=== PATIENT | female | born 1980 | race Caucasian/White ===

== ENCOUNTER 2017-05-27 07:09 | Emergency (ER) | payer OTHER ==
--- NOTE | 2017-05-27 07:36 | ED ---
Chest Pain HPI - General Chief Complaint: Chest Pain Stated Complaint: chest pain Time Seen by Provider: 05/27/17 07:15 Source: patient, RN notes reviewed Mode of arrival: wheelchair Limitations: no limitations - History of Present Illness Initial Comments: This is a 39-year-old female with a history of multiple medical issues including history of pulmonary embolism kidney stone with stent aortic root dilatation of 3.9 cm in the past also tricuspid regurgitation also with a Chiari malformation and is soon to have surgery who complains the onset about one half hours prior to admission of sharp left-sided chest pain. She states she gets as severe as 8/10 severity she states that it dulls all within gets bad again. It is in a similar location that she's had pain before. She denies any fevers chills sweats cough or phlegm production she is a former smoker. She is not recall anything he may have hurt her chest such as heavy lifting bending or stretching. She has have prior visits for similar pain. MD Complaint: chest pain - Related Data Home Medications Medication Instructions Recorded Confirmed ALPRAZolam [Xanax] 0.5 mg PO TID PRN 11/01/16 05/27/17 Acetaminophen with Codeine 1 tab PO Q6HR PRN 11/01/16 05/27/17 [Tylenol w/codeine #4] Ibuprofen [Motrin] 800 mg PO Q8HR PRN 11/01/16 05/27/17 Ondansetron Odt [Zofran ODT] 4 mg PO Q8HR PRN 11/01/16 05/27/17 Butalb/APAP/Caff 50-325-40Mg 1 tab PO Q4H PRN 05/27/17 05/27/17 [Fioricet 50-325-40] Folic Acid 1 mg PO DAILY 05/27/17 05/27/17 Magnesium 400 mg PO HS 05/27/17 05/27/17 Phentermine HCl [Adipex-P] 37.5 mg PO QAM 05/27/17 05/27/17 Topiramate [Topamax] 200 mg PO BID 05/27/17 05/27/17 Previous Rx's Medication Instructions Recorded Ibuprofen 800 mg PO Q6HR PRN #20 tablet 05/27/17 Potassium Chloride ER [K-Dur 20] 20 meq PO BID #14 tab 05/27/17 Allergies Allergy/AdvReac Type Severity Reaction Status Date / Time metoclopramide HCl Allergy Hallucinati Verified 05/27/17 08:22 [From Reglan] ons Review of Systems ROS Statement: Those systems with pertinent positive or pertinent negative responses have been documented in the HPI. ROS Other: All systems not noted in ROS Statement are negative. EKG Findings - EKG Results: EKG: interpreted by ERMD, sinus rhythm (Sinus bradycardia rate of 55 NM interval 136 QRS duration 86 QT since QTC of 436/417 st-t wave changes this is compared with an EKG dated 11/01/16) Past Medical History Past Medical History: Pulmonary Embolus (PE), Renal Disease Additional Past Medical History / Comment(s): kidney stones with stent, chairi malformation, tricuspid regurgitation, left ventricular hypertrophy History of Any Multi-Drug Resistant Organisms: None Reported Past Surgical History: Section, Cholecystectomy, Tubal Ligation Additional Past Surgical History / Comment(s): renal stent, surgery for chairi malformation may 25 Past Anesthesia/Blood Transfusion Reactions: Postoperative Nausea & Vomiting ( PONV) Past Psychological History: Anxiety Smoking Status: Former smoker Past Alcohol Use History: Rare Past Drug Use History: Marijuana - Past Family History Father Additional Family Medical History / Comment(s): born with hole in heart, valve replacements, heart attacks, pacemaker General Exam - General Exam Comments Initial Comments: This is a well-developed well-nourished awake alert oriented 3 female Limitations: no limitations General appearance: alert, in no apparent distress Head exam: Present: atraumatic, normocephalic, normal inspection Eye exam: Present: normal appearance, PERRL, EOMI. Absent: scleral icterus, conjunctival injection, periorbital swelling ENT exam: Present: normal exam, mucous membranes moist Neck exam: Present: normal inspection. Absent: tenderness, meningismus, lymphadenopathy Respiratory exam: Present: normal lung sounds bilaterally. Absent: respiratory distress, wheezes, rales, rhonchi, stridor Cardiovascular Exam: Present: regular rate, normal rhythm, normal heart sounds. Absent: systolic murmur, diastolic murmur, rubs, gallop, clicks GI/Abdominal exam: Present: soft, normal bowel sounds. Absent: distended, tenderness, guarding, rebound, rigid Extremities exam: Present: normal inspection, full ROM, normal capillary refill. Absent: tenderness, pedal edema, joint swelling, calf tenderness Back exam: Present: normal inspection Neurological exam: Present: alert, oriented X3, CN II-XII intact Psychiatric exam: Present: normal affect, normal mood Skin exam: Present: warm, dry, intact, normal color. Absent: rash Course Vital Signs 05/27/17 05/27/17 05/27/17 07:11 08:30 09:37 Temperature 97.4 F L Pulse Rate 61 60 58 L Respiratory 20 18 18 Rate Blood Pressure 129/69 109/64 91/53 O2 Sat by Pulse 99 100 98 Oximetry Chest Pain MDM - MDM Review the imaging shows no acute findings. Did discuss the findings with patient family patient does have evidence of hypokalemia mild dehydration and costochondritis. She will be treated appropriately she'll receive potassium before she lays. Disposition Clinical Impression: Chest wall syndrome, Costalchondritis, Hypokalemia, Dehydration Disposition: HOME SELF-CARE Condition: Good Prescriptions: Ibuprofen 800 mg PO Q6HR PRN #20 tablet PRN Reason: Pain Potassium Chloride ER [K-Dur 20] 20 meq PO BID #14 tab Referrals: Mikki Mansfield MD [Primary Care Provider] - 1-2 days
[2017-05-27 07:45] LABS: Basophils % (A) 0 %; CH 30.7; CHCM 34.1; Eosinophils # (A) 0.1 k/uL (0-0.7); Eosinophils % (A) 1 %; HCT 34.9 % (34.0-46.0); HDW 2.62; HGB 12.4 gm/dL (11.4-16.0); Luc # (Auto) 0.06; Luc % (Auto) 1; Lymphocytes # (A) 1.3 k/uL (1.0-4.8); Lymphocytes % (A) 17 %; MCH 32.1 pg (25.0-35.0); MCHC 35.4 g/dL (31.0-37.0); MCV 90.5 fL (80.0-100.0); Mean Platelet Volume 8.5; Monocytes # (A) 0.3 k/uL (0-1.0); Monocytes % (A) 3 %; Neutrophils % (A) 78 %; RBC 3.85 m/uL (3.80-5.40); WBC 7.7 k/uL (3.8-10.6); WBC (Perox) 7.61
[2017-05-27 07:54] LABS: ALT 34 U/L (9-52); AST 18 U/L (14-36); Alkaline Phosphatase 71 U/L (38-126); Amylase <30 U/L (30-110); Anion Gap 10 mmol/L; Blood Urea Nitrogen 7 mg/dL (7-17); Calcium 8.8 mg/dL (8.4-10.2); Carbon Dioxide 21 mmol/L (22-30); Chloride 115 mmol/L (98-107); Glucose 130 mg/dL (74-99); Magnesium 2.1 mg/dL (1.6-2.3); Non-African American GFR(MDRD) >60 (>60 ml/min/1.73 sqM); Potassium 3.2 mmol/L (3.5-5.1); Sodium 146 mmol/L (137-145); Total Bilirubin 0.6 mg/dL (0.2-1.3); Total Protein 6.4 g/dL (6.3-8.2)
[2017-05-27 08:00] LABS: INR 1.1 (<1.1); Partial Thromboplastin Time 23.4 sec (22.0-30.0); Prothrombin Time 10.8 sec (9.0-12.0)
[2017-05-27 08:08] LABS: Creatine Kinase 78 U/L (30-135)
--- NOTE | 2017-05-27 08:10 | XR ---
EXAMINATION TYPE: XR chest 2V DATE OF EXAM: 05/27/2017 COMPARISON: Chest x-ray November 02, 2016. HISTORY: Chest pain. TECHNIQUE: Frontal and lateral views of the chest are obtained. FINDINGS: There is no focal air space opacity, pleural effusion, or pneumothorax seen. The cardiac silhouette size is within normal limits. The osseous structures are intact. IMPRESSION: No acute cardiopulmonary process. No significant change from prior.
[2017-05-27 08:21] LABS: Troponin I <0.012 ng/mL (0.000-0.034)
[2017-05-27] MEDS ORDERED: ONDANSETRON 4 MG/2 ML VIAL IVP STA (08:21)
[2017-05-27] MEDS ORDERED: HYDROmorphone 1 MG/ML 1 ML SYRINGE IVP STA (08:21)
[2017-05-27 08:23] LABS: Creatine Kinase MB 3.4 ng/mL (0.0-2.4)
[2017-05-27 08:31] VITALS: RESP 18
[2017-05-27] MEDS ORDERED: POTASSIUM CHLORIDE ER 20 MEQ TAB.ER PO STA (09:40)
[2017-05-27 10:08] VITALS: BP 110/58; PULSE 90; TEMP 97.7
== END 2017-05-27 10:08 | disposition home or self-care (01) ==
LOC: EC 07:09
DX: M94.0 Chondrocostal junction syndrome [Tietze] (principal); E87.6 Hypokalemia; E86.0 Dehydration; Z87.891 Personal history of nicotine dependence; Z79.899 Other long term (current) drug therapy; Z88.8 Allergy status to other drugs, medicaments and biological substances
CPT/HCPCS: 36415; 93005; 85379; 83880; 80053; 82150; 82550; 82553; 83690; 83735; 84484; 85025; 85610; 85730; 71020; 99285; 96374; 96375; J2405; J1170

== ENCOUNTER 2017-07-18 00:52 | Emergency (ER) | payer OTHER ==
[2017-07-18] MEDS ORDERED: SODIUM CHLORIDE 0.9% 1,000 ML IV STA (01:07)
[2017-07-18] MEDS ORDERED: DICYCLOMINE 10 MG/ML 2 ML AMP IM STA (01:25)
--- NOTE | 2017-07-18 01:25 | ED ---
General Adult HPI - General Chief complaint: Abdominal Pain Stated complaint: RLQ Pain Time Seen by Provider: 07/18/17 01:06 Source: patient, family, RN notes reviewed Mode of arrival: ambulatory Limitations: no limitations - History of Present Illness Initial comments: 37-year-old female presents to the emergency room chief complaint of right lower quadrant abdominal pain. Patient states this pain started about a day and a half goes progressively gotten worse now she has nausea. Patient states it just a constant pain that won't go away. Patient seen changes or bladder habits. Patient states she's had nausea without vomiting patient denies any fever or chills. Patient states she went to work and she just could not tolerate the pain. So she thought that she should be evaluated. Patient states that she cannot recall ever having pain like this in the past.Patient denies any recent fever, chills, shortness of breath, chest pain, back pain, vomiting, numbness or tingling, dysuria or hematuria, constipation or diarrhea, headaches or visual changes, or any other current symptoms. - Related Data Home Medications Medication Instructions Recorded Confirmed ALPRAZolam [Xanax] 0.5 mg PO TID PRN 11/01/16 07/18/17 Acetaminophen with Codeine 1 tab PO Q6HR PRN 11/01/16 07/18/17 [Tylenol w/codeine #4] Ibuprofen [Motrin] 800 mg PO Q8HR PRN 11/01/16 07/18/17 Ondansetron Odt [Zofran ODT] 4 mg PO Q8HR PRN 11/01/16 07/18/17 Butalb/APAP/Caff 50-325-40Mg 1 tab PO Q4H PRN 05/27/17 07/18/17 [Fioricet 50-325-40] Folic Acid 1 mg PO DAILY 05/27/17 07/18/17 Magnesium 400 mg PO HS 05/27/17 07/18/17 Phentermine HCl [Adipex-P] 37.5 mg PO QAM 05/27/17 07/18/17 Previous Rx's Medication Instructions Recorded Ibuprofen 800 mg PO Q6HR PRN #20 tablet 05/27/17 Potassium Chloride ER [K-Dur 20] 20 meq PO BID #14 tab 05/27/17 Ibuprofen [Motrin] 600 mg PO Q6HR PRN #20 tab 07/18/17 Allergies Allergy/AdvReac Type Severity Reaction Status Date / Time metoclopramide HCl Allergy Hallucinati Verified 07/18/17 01:03 [From [facility]] ons Review of Systems ROS Statement: Those systems with pertinent positive or pertinent negative responses have been documented in the HPI. ROS Other: All systems not noted in ROS Statement are negative. Past Medical History Past Medical History: Pulmonary Embolus (PE), Renal Disease Additional Past Medical History / Comment(s): kidney stones with stent, chairi malformation, tricuspid regurgitation, left ventricular hypertrophy History of Any Multi-Drug Resistant Organisms: None Reported Past Surgical History: Section, Cholecystectomy, Tubal Ligation Additional Past Surgical History / Comment(s): renal stent, surgery for chairi malformation may 25 Past Anesthesia/Blood Transfusion Reactions: Postoperative Nausea & Vomiting ( PONV) Past Psychological History: Anxiety Smoking Status: Current every day smoker Past Alcohol Use History: Rare Past Drug Use History: Marijuana - Past Family History Father Additional Family Medical History / Comment(s): born with hole in heart, valve replacements, heart attacks, pacemaker General Exam - General Exam Comments Initial Comments: General: The patient is awake and alert, in no distress, and does not appear acutely ill. Eye: Pupils are equal, round and reactive to light, extra-ocular movements are intact; there is normal conjunctiva bilaterally. No signs of icterus. Ears, nose, mouth and throat: There are moist mucous membranes and no oral lesions. Neck: The neck is supple, there is no tenderness. Cardiovascular: There is a regular rate and rhythm. No murmur, rub or gallop is appreciated. Respiratory: Lungs are clear to auscultation, respirations are non-labored, breath sounds are equal. No wheezes, stridor, rales, or rhonchi. Gastrointestinal: Soft, non-distended, non-tender abdomen without masses or organomegaly noted. There is no rebound or guarding present. No CVA tenderness. Bowel sounds are unremarkable. Back: There is no tenderness to palpation in the midline. There is no obvious deformity. No rashes noted. Musculoskeletal: Normal ROM, no tenderness, There is no pedal edema. There is no calf tenderness or swelling. Sensation intact. Pulses equal bilaterally 2+. Neurological: CN II-XII intact, There are no obvious motor or sensory deficits. Coordination appears grossly intact. Speech is normal. Skin: Skin is warm and dry and no rashes or lesions are noted. Psychiatric: Cooperative, appropriate mood & affect, normal judgment. Limitations: no limitations Course Vital Signs 07/18/17 01:00 Temperature 97.5 F L Pulse Rate 60 Respiratory 18 Rate Blood Pressure 119/77 O2 Sat by Pulse 99 Oximetry Medical Decision Making - Medical Decision Making 37 yo female presents emergency Department chief complaint of right lower quadrant abdominal pain. At this time patient does appear to have a right ovarian cyst. This time we discussion stop with [facility] [employer] in her [facility] is around her. We did discussion will need to have repeat ultrasound. We discussed return parameters discussed was to watch for. We discussed all the patient's questions. She stated that she understood and she is given plan. She will be discharged home. - Lab Data Result diagrams: 07/18/17 01:20 07/18/17 01:20 Lab Results 07/18/17 07/18/17 07/18/17 Range/Units 01:20 01:20 01:20 WBC 7.2 (3.8-10.6) k/uL RBC 4.01 (3.80-5.40) m/uL Hgb 12.3 (11.4-16.0) gm/dL Hct 37.0 (34.0-46.0) % MCV 92.3 (80.0-100.0) fL MCH 30.6 (25.0-35.0) pg MCHC 33.2 (31.0-37.0) g/dL RDW 13.7 (11.5-15.5) % Plt Count 196 (150-450) k/uL Neutrophils % 60 % Lymphocytes % 30 % Monocytes % 4 % Eosinophils % 3 % Basophils % 1 % Neutrophils # 4.3 (1.3-7.7) k/uL Lymphocytes # 2.2 (1.0-4.8) k/uL Monocytes # 0.3 (0-1.0) k/uL Eosinophils # 0.2 (0-0.7) k/uL Basophils # 0.1 (0-0.2) k/uL Sodium 142 (137-145) mmol/L Potassium 4.1 (3.5-5.1) mmol/L Chloride 116 H (98-107) mmol/L Carbon Dioxide 17 L (22-30) mmol/L Anion Gap 9 mmol/L BUN 10 (7-17) mg/dL Creatinine 0.70 (0.52-1.04) mg/dL Est GFR (MDRD) Af Amer >60 (>60 ml/min/1.73 sqM) Est GFR (MDRD) Non-Af >60 (>60 ml/min/1.73 sqM) Glucose 95 (74-99) mg/dL Calcium 8.6 (8.4-10.2) mg/dL Total Bilirubin 0.1 L (0.2-1.3) mg/dL AST 20 (14-36) U/L ALT 37 (9-52) U/L Alkaline Phosphatase 65 (38-126) U/L Total Protein 5.8 L (6.3-8.2) g/dL Albumin 3.4 L (3.5-5.0) g/dL Amylase <30 L (30-110) U/L Lipase 61 (23-300) U/L Urine Color Urine Appearance (Clear) Urine pH (5.0-8.0) Ur Specific Oley (1.001-1.035) Urine Protein (Negative) Urine Glucose (UA) (Negative) Urine Ketones (Negative) Urine Blood (Negative) Urine Nitrite (Negative) Urine Bilirubin (Negative) Urine Urobilinogen (<2.0) mg/dL Ur Leukocyte Esterase (Negative) Urine RBC (0-5) /hpf Urine WBC (0-5) /hpf Ur Squamous Epith Cells (0-4) /hpf Urine Mucus (None) /hpf Urine HCG, Qual Not Detected (Not Detectd) 07/18/17 Range/Units 01:20 WBC (3.8-10.6) k/uL RBC (3.80-5.40) m/uL Hgb (11.4-16.0) gm/dL Hct (34.0-46.0) % MCV (80.0-100.0) fL MCH (25.0-35.0) pg MCHC (31.0-37.0) g/dL RDW (11.5-15.5) % Plt Count (150-450) k/uL Neutrophils % % Lymphocytes % % Monocytes % % Eosinophils % % Basophils % % Neutrophils # (1.3-7.7) k/uL Lymphocytes # (1.0-4.8) k/uL Monocytes # (0-1.0) k/uL Eosinophils # (0-0.7) k/uL Basophils # (0-0.2) k/uL Sodium (137-145) mmol/L Potassium (3.5-5.1) mmol/L Chloride (98-107) mmol/L Carbon Dioxide (22-30) mmol/L Anion Gap mmol/L BUN (7-17) mg/dL Creatinine (0.52-1.04) mg/dL Est GFR (MDRD) Af Amer (>60 ml/min/1.73 sqM) Est GFR (MDRD) Non-Af (>60 ml/min/1.73 sqM) Glucose (74-99) mg/dL Calcium (8.4-10.2) mg/dL Total Bilirubin (0.2-1.3) mg/dL AST (14-36) U/L ALT (9-52) U/L Alkaline Phosphatase (38-126) U/L Total Protein (6.3-8.2) g/dL Albumin (3.5-5.0) g/dL Amylase (30-110) U/L Lipase (23-300) U/L Urine Color Yellow Urine Appearance Cloudy H (Clear) Urine pH 6.0 (5.0-8.0) Ur Specific Oley 1.015 (1.001-1.035) Urine Protein Negative (Negative) Urine Glucose (UA) Negative (Negative) Urine Ketones Negative (Negative) Urine Blood Negative (Negative) Urine Nitrite Negative (Negative) Urine Bilirubin Negative (Negative) Urine Urobilinogen <2.0 (<2.0) mg/dL Ur Leukocyte Esterase Large H (Negative) Urine RBC 7 H (0-5) /hpf Urine WBC 32 H (0-5) /hpf Ur Squamous Epith Cells 22 H (0-4) /hpf Urine Mucus Rare H (None) /hpf Urine HCG, Qual (Not Detectd) - Radiology Data Radiology results: report reviewed, image reviewed Disposition Clinical Impression: Right ovarian cyst Disposition: HOME SELF-CARE Condition: Stable Instructions: Ovarian Cyst (ED) Additional Instructions: Please use medication as discussed. Please follow up with family doctor if symptoms have not improved over the next two days. Please return to the emergency room if your symptoms increase or worsen or for any other concerns. Prescriptions: Ibuprofen [Motrin] 600 mg PO Q6HR PRN #20 tab PRN Reason: Pain Referrals: Mikki Mansfield MD [Primary Care Provider] - 1-2 days Karissa Hatfield DO [Doctor of Osteopathic Medicine] - 1-2 days Time of Disposition: 02:46
[2017-07-18 01:37] LABS: Basophils # (A) 0.1 k/uL (0-0.2); Basophils % (A) 1 %; CH 31.3; CHCM 34.1; Eosinophils # (A) 0.2 k/uL (0-0.7); Eosinophils % (A) 3 %; HDW 2.52; HGB 12.3 gm/dL (11.4-16.0); Luc % (Auto) 1; Lymphocytes # (A) 2.2 k/uL (1.0-4.8); Lymphocytes % (A) 30 %; MCH 30.6 pg (25.0-35.0); MCHC 33.2 g/dL (31.0-37.0); MCV 92.3 fL (80.0-100.0); Mean Platelet Volume 8.9; Monocytes # (A) 0.3 k/uL (0-1.0); Monocytes % (A) 4 %; Neutrophils # (A) 4.3 k/uL (1.3-7.7); Neutrophils % (A) 60 %; RBC 4.01 m/uL (3.80-5.40); RDW 13.7 % (11.5-15.5); WBC 7.2 k/uL (3.8-10.6); WBC (Perox) 6.83
[2017-07-18 01:41] LABS: Appearance,Urine Cloudy (Clear); Bilirubin,Urine Negative (Negative); Glucose,Urine (UA) Negative (Negative); Ketones,Urine Negative (Negative); Leukocyte Esterase,Urine Large (Negative); Mucus,Urine Rare /hpf; Nitrite,Urine Negative (Negative); Particle Count 14540; Protein,Urine Negative (Negative); RBC,Urine 7 /hpf (0-5); Specific Gravity,Urine 1.015 (1.001-1.035); Squamous Epithelial Cell,Urine 22 /hpf (0-4); UA Billing (MACRO vs. MICRO) MICRO; Urobilinogen,Urine <2.0 mg/dL (<2.0); WBC,Urine 32 /hpf (0-5)
[2017-07-18 01:48] LABS: ALT 37 U/L (9-52); AST 20 U/L (14-36); Alkaline Phosphatase 65 U/L (38-126); Amylase <30 U/L (30-110); Anion Gap 9 mmol/L; Blood Urea Nitrogen 10 mg/dL (7-17); Calcium 8.6 mg/dL (8.4-10.2); Carbon Dioxide 17 mmol/L (22-30); Chloride 116 mmol/L (98-107); Glucose 95 mg/dL (74-99); Non-African American GFR(MDRD) >60 (>60 ml/min/1.73 sqM); Potassium 4.1 mmol/L (3.5-5.1); Sodium 142 mmol/L (137-145); Total Bilirubin 0.1 mg/dL (0.2-1.3); Total Protein 5.8 g/dL (6.3-8.2)
--- NOTE | 2017-07-18 02:36 | CT ---
EXAM: CT Abdomen and Pelvis Without Intravenous Contrast CLINICAL HISTORY: Right lower quadrant pain TECHNIQUE: Axial computed tomography images of the abdomen and pelvis without intravenous contrast. DLP is 587.50 mGy-cm. This CT exam was performed using one or more of the following dose reduction techniques: automated exposure control, adjustment of the mA and/or kV according to patient size, and/or use of iterative reconstruction technique. COMPARISON: 08/27/2015. FINDINGS: Lower thorax: No acute findings. ABDOMEN: Liver: Unremarkable. Gallbladder and bile ducts: Patient status post cholecystectomy. No ductal dilation. Pancreas: Unremarkable. No ductal dilation. Spleen: Unremarkable. No splenomegaly. Adrenals: Unremarkable. No mass. Kidneys and ureters: Unremarkable. No obstructing stones. No hydronephrosis. Stomach and bowel: Moderate amount of stool seen throughout the colon, which may represent constipation. No obstruction. No mucosal thickening. Appendix: Evaluation of the bowel is limited without the use of oral contrast material. Within this limitation, a normal appendix is seen. PELVIS: Bladder: Unremarkable. No stones. Reproductive: Large right adnexal probable cystic mass, measuring 5.6 x 5.7 x 5.2 cm, new since prior study. ABDOMEN and PELVIS: Intraperitoneal space: A small amount of pelvic free fluid is seen, likely physiologic. No free air. Bones/joints: Mild bilateral symmetric sacroiliitis is suggested. No acute fracture. No dislocation. Soft tissues: Unremarkable. Vasculature: Unremarkable. No abdominal aortic aneurysm. Lymph nodes: Evaluation of the lymph nodes is limited without the use of IV contrast material. Within this limitation, no gross evidence of lymphadenopathy. IMPRESSION: Large right adnexal probable cystic mass, measuring 5.7 cm, new since prior study. Pelvic ultrasound may be performed for further evaluation. Moderate amount of stool throughout the colon, which may represent constipation. No evidence of hydronephrosis. Normal appendix.
[2017-07-18] MEDS ORDERED: KETOROLAC 30 MG/ML 1 ML VIAL IVP STA (02:45)
[2017-07-18 02:52] VITALS: BP 118/79; PULSE 84; RESP 16; TEMP 98.1
== END 2017-07-18 02:51 | disposition home or self-care (01) ==
LOC: EC 00:52
DX: N83.201 Unspecified ovarian cyst, right side (principal); F17.200 Nicotine dependence, unspecified, uncomplicated; Z79.899 Other long term (current) drug therapy; Z88.8 Allergy status to other drugs, medicaments and biological substances; Z90.49 Acquired absence of other specified parts of digestive tract; Z98.51 Tubal ligation status
CPT/HCPCS: 36415; 80053; 82150; 83690; 85025; 81001; 81025; 87040; 87086; 87077; 87186; 74176; 99284; 96374; 96361; 96372; J0500; J1885

== ENCOUNTER → 2017-08-06 | Outpatient (CLI) | payer OTHER ==
[2017-08-06 12:00] LABS: Basophils # (A) 0.1 k/uL (0-0.2); Basophils % (A) 1 %; CH 30.7; CHCM 32.9; Eosinophils # (A) 0.8 k/uL (0-0.7); Eosinophils % (A) 9 %; HCT 37.5 % (34.0-46.0); HDW 2.57; HGB 12.2 gm/dL (11.4-16.0); Luc # (Auto) 0.09; Luc % (Auto) 1; Lymphocytes # (A) 1.9 k/uL (1.0-4.8); Lymphocytes % (A) 20 %; MCH 30.7 pg (25.0-35.0); MCHC 32.6 g/dL (31.0-37.0); MCV 94.1 fL (80.0-100.0); Mean Platelet Volume 8.5; Monocytes # (A) 0.4 k/uL (0-1.0); Monocytes % (A) 4 %; Neutrophils # (A) 6.1 k/uL (1.3-7.7); Neutrophils % (A) 65 %; RBC 3.99 m/uL (3.80-5.40); RDW 13.9 % (11.5-15.5); WBC 9.3 k/uL (3.8-10.6); WBC (Perox) 9.97
[2017-08-06 12:06] LABS: Appearance,Urine Clear (Clear); Bacteria,Urine Rare /hpf; Bilirubin,Urine Negative (Negative); Glucose,Urine (UA) Negative (Negative); Ketones,Urine Negative (Negative); Leukocyte Esterase,Urine Trace (Negative); Mucus,Urine Occasional /hpf; Nitrite,Urine Negative (Negative); PH, Urine 5.5 (5.0-8.0); Particle Count 5684; Protein,Urine Trace (Negative); Specific Gravity,Urine 1.018 (1.001-1.035); Squamous Epithelial Cell,Urine 3 /hpf (0-4); UA Billing (MACRO vs. MICRO) MICRO; Urobilinogen,Urine <2.0 mg/dL (<2.0); WBC,Urine 1 /hpf (0-5)
[2017-08-06 12:08] LABS: Partial Thromboplastin Time 24.1 sec (22.0-30.0); Prothrombin Time 10.5 sec (9.0-12.0)
[2017-08-06 12:15] LABS: AST 37 U/L (14-36); Alkaline Phosphatase 87 U/L (38-126); Anion Gap 11 mmol/L; Blood Urea Nitrogen 11 mg/dL (7-17); Calcium 9.2 mg/dL (8.4-10.2); Carbon Dioxide 22 mmol/L (22-30); Chloride 110 mmol/L (98-107); Glucose 81 mg/dL (74-99); Non-African American GFR(MDRD) >60 (>60 ml/min/1.73 sqM); Potassium 4.3 mmol/L (3.5-5.1); Sodium 143 mmol/L (137-145); Total Bilirubin 0.2 mg/dL (0.2-1.3); Total Protein 6.5 g/dL (6.3-8.2)
[2017-08-06 12:20] LABS: ALT 65 U/L (9-52)
== END | disposition home or self-care (01) ==
LOC: LABWHC1 11:28
PROVIDERS: ATTEND Neurological Surgery
DX: G93.5 Compression of brain (principal)
CPT/HCPCS: 36415; 80053; 81001; 85025; 85610; 85730

== ENCOUNTER 2017-08-12 03:15 | Emergency (ER) | payer OTHER ==
[2017-08-12 03:26] VITALS: BP 118/76; PULSE 74; RESP 18; TEMP 98.1
[2017-08-12] MEDS ORDERED: diphenhydrAMINE 50 MG/ML 1 ML VIAL IVP STA (03:47)
[2017-08-12] MEDS ORDERED: HYDROmorphone 1 MG/ML 1 ML SYRINGE IVP STA (03:47)
[2017-08-12] MEDS ORDERED: SODIUM CHLORIDE 0.9% 1,000 ML IV STA (03:47)
[2017-08-12] MEDS ORDERED: ONDANSETRON 4 MG/2 ML VIAL IVP STA (03:47)
--- NOTE | 2017-08-12 03:58 | ED ---
General Adult HPI - General Chief complaint: Headache Stated complaint: headache Time Seen by Provider: 08/12/17 03:35 Source: patient, family, RN notes reviewed Mode of arrival: ambulatory Limitations: no limitations - History of Present Illness Initial comments: Patient 37-year-old female presenting to the emergency room today with a headache. She does admit to a history of chart formation. She states that she has a "blockage" and is supposed to have surgery next week for this. She states that the headache has been worse today. She states she has been having headaches off and on over the last week. States feeling in the back of the head also the front. States somewhat similar to headaches that she's had in the past but symptoms are worse. She denies any frequency associated symptoms. Patient denies any recent fever, chills, shortness of breath, chest pain, back pain, abdominal pain, nausea or vomiting, numbness or tingling, dysuria or hematuria, constipation or diarrhea, visual changes, or any other complaints. - Related Data Home Medications Medication Instructions Recorded Confirmed ALPRAZolam [Xanax] 0.5 mg PO TID PRN 11/01/16 08/12/17 Acetaminophen with Codeine 1 tab PO Q6HR PRN 11/01/16 08/12/17 [Tylenol w/codeine #4] Ibuprofen [Motrin] 800 mg PO Q8HR PRN 11/01/16 08/12/17 Ondansetron Odt [Zofran ODT] 4 mg PO Q8HR PRN 11/01/16 08/12/17 Butalb/APAP/Caff 50-325-40Mg 1 tab PO Q4H PRN 05/27/17 08/12/17 [Fioricet 50-325-40] Folic Acid 1 mg PO DAILY 05/27/17 08/12/17 Magnesium 400 mg PO HS 05/27/17 08/12/17 Phentermine HCl [Adipex-P] 37.5 mg PO QAM 05/27/17 08/12/17 Previous Rx's Medication Instructions Recorded Ibuprofen 800 mg PO Q6HR PRN #20 tablet 05/27/17 Potassium Chloride ER [K-Dur 20] 20 meq PO BID #14 tab 05/27/17 Ibuprofen [Motrin] 600 mg PO Q6HR PRN #20 tab 07/18/17 Allergies Allergy/AdvReac Type Severity Reaction Status Date / Time metoclopramide HCl Allergy Hallucinati Verified 08/12/17 03:25 [From Reglan] ons Review of Systems ROS Statement: Those systems with pertinent positive or pertinent negative responses have been documented in the HPI. ROS Other: All systems not noted in ROS Statement are negative. Past Medical History Past Medical History: Pulmonary Embolus (PE), Renal Disease Additional Past Medical History / Comment(s): kidney stones with stent, chairi malformation, tricuspid regurgitation, left ventricular hypertrophy History of Any Multi-Drug Resistant Organisms: None Reported Past Surgical History: Section, Cholecystectomy, Tubal Ligation Additional Past Surgical History / Comment(s): renal stent, surgery for chairi malformation may 25 Past Anesthesia/Blood Transfusion Reactions: Postoperative Nausea & Vomiting ( PONV) Past Psychological History: Anxiety Smoking Status: Current every day smoker Past Alcohol Use History: Rare Past Drug Use History: Marijuana - Past Family History Father Additional Family Medical History / Comment(s): born with hole in heart, valve replacements, heart attacks, pacemaker General Exam - General Exam Comments Initial Comments: General: The patient is awake and alert, in no distress, and does not appear acutely ill. Eye: Pupils are equal, round and reactive to light, extra-ocular movements are intact. No nystagmus. There is normal conjunctiva bilaterally. No signs of icterus. Ears, nose, mouth and throat: There are moist mucous membranes and no oral lesions. Neck: The neck is supple, there is no tenderness or JVD. Cardiovascular: There is a regular rate and rhythm. No murmur, rub or gallop is appreciated. Respiratory: Lungs are clear to auscultation, respirations are non-labored, breath sounds are equal. No wheezes, stridor, rales, or rhonchi. Gastrointestinal: Soft, non-distended, non-tender abdomen without masses or organomegaly noted. There is no rebound or guarding present. No CVA tenderness. Bowel sounds are unremarkable. Musculoskeletal: Normal ROM, no tenderness. Strength 5/5. Sensation intact. Pulses equal bilaterally 2+. Neurological: A&O x 3. CN II-XII intact, There are no obvious motor or sensory deficits. Coordination appears grossly intact. Speech is normal. Skin: Skin is warm and dry and no rashes or lesions are noted. Psychiatric: Cooperative, appropriate mood & affect, normal judgment. Limitations: no limitations Course Vital Signs 08/12/17 03:22 Temperature 98.1 F Pulse Rate 74 Respiratory 18 Rate Blood Pressure 118/76 O2 Sat by Pulse 100 Oximetry Medical Decision Making - Medical Decision Making Case discussed in detail with attending physician Dr. Gan. Patient's past reports reviewed does have multiple CTs. Was discussed with patient about the option of a CAT scan today. She has declined. She states CAT scans typically do not show anything. Patient states she would like something for the headache. We will give patient pain medicine here in the emergency room and she is advised to follow-up with her neurosurgeon tomorrow morning. Disposition Clinical Impression: Headache Disposition: HOME SELF-CARE Condition: Stable Instructions: Acute Headache (ED) Additional Instructions: Please follow-up the neurosurgeon in the morning as discussed. Please return to emergency room symptoms increase or worsen or for any other concerns. Referrals: Mikki Mansfield MD [Primary Care Provider] - 1-2 days Time of Disposition: 03:56
== END 2017-08-12 05:05 | disposition home or self-care (01) ==
LOC: EC 03:15
DX: R51 Headache (principal); F17.200 Nicotine dependence, unspecified, uncomplicated; Z88.8 Allergy status to other drugs, medicaments and biological substances; Z79.899 Other long term (current) drug therapy
CPT/HCPCS: 99283; 96374; 96375 ×2; 96361; J1200; J2405; J1170

== ENCOUNTER 2017-09-04 09:07 | Emergency (ER) | payer OTHER ==
[2017-09-04 09:14] VITALS: TEMP 97.8
[2017-09-04] MEDS ORDERED: SODIUM CHLORIDE 0.9% 1,000 ML IV STA (09:32)
[2017-09-04] MEDS ORDERED: ONDANSETRON 4 MG/2 ML VIAL IVP STA (10:06)
[2017-09-04] MEDS ORDERED: MORPHINE SULFATE 2 MG/ML SYRINGE IVP STA (10:06)
--- NOTE | 2017-09-04 10:08 | ED ---
General Adult HPI - General Chief complaint: Back Pain/Injury Stated complaint: side pain Time Seen by Provider: 09/04/17 09:17 Source: patient, RN notes reviewed Mode of arrival: wheelchair Limitations: no limitations - History of Present Illness Initial comments: This a 37-year-old female presents emergency Department with chief complaint bilateral flank pain. Patient states started last night progressively worsened until today. Patient does admit some nausea and vomiting. 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 Patient states this is the second attempt. Patient states she has no increase head or neck pain. Denies fever, chills. She states she has no weakness of any extremity. Denies chest pain or shortness of breath. She states his pain is different than he also is going at this time. She denies any dysuria or hematuria. Denies any diarrhea constipation. - Related Data Home Medications Medication Instructions Recorded Confirmed ALPRAZolam [Xanax] 0.5 mg PO TID PRN 11/01/16 08/12/17 Acetaminophen with Codeine 1 tab PO Q6HR PRN 11/01/16 08/12/17 [Tylenol w/codeine #4] Ibuprofen [Motrin] 800 mg PO Q8HR PRN 11/01/16 08/12/17 Ondansetron Odt [Zofran ODT] 4 mg PO Q8HR PRN 11/01/16 08/12/17 Butalb/APAP/Caff 50-325-40Mg 1 tab PO Q4H PRN 05/27/17 08/12/17 [Fioricet 50-325-40] Folic Acid 1 mg PO DAILY 05/27/17 08/12/17 Magnesium 400 mg PO HS 05/27/17 08/12/17 Phentermine HCl [Adipex-P] 37.5 mg PO QAM 05/27/17 08/12/17 Previous Rx's Medication Instructions Recorded Ibuprofen 800 mg PO Q6HR PRN #20 tablet 05/27/17 Potassium Chloride ER [K-Dur 20] 20 meq PO BID #14 tab 05/27/17 Ibuprofen [Motrin] 600 mg PO Q6HR PRN #20 tab 07/18/17 Ciprofloxacin HCl [Cipro] 500 mg PO Q12HR #14 tablet 09/04/17 Allergies Allergy/AdvReac Type Severity Reaction Status Date / Time metoclopramide HCl Allergy Hallucinati Verified 09/04/17 09:14 [From [facility]] ons Review of Systems ROS Statement: Those systems with pertinent positive or pertinent negative responses have been documented in the HPI. ROS Other: All systems not noted in ROS Statement are negative. Past Medical History Past Medical History: Pulmonary Embolus (PE), Renal Disease Additional Past Medical History / Comment(s): kidney stones with stent, chairi malformation, tricuspid regurgitation, left ventricular hypertrophy History of Any Multi-Drug Resistant Organisms: None Reported Past Surgical History: Section, Cholecystectomy, Tubal Ligation Additional Past Surgical History / Comment(s): renal stent, surgery for chairi malformation may 24, brain decompression 09/01/17 Past Anesthesia/Blood Transfusion Reactions: Postoperative Nausea & Vomiting ( PONV) Past Psychological History: Anxiety Smoking Status: Former smoker Past Alcohol Use History: Rare Past Drug Use History: Marijuana - Past Family History Father Additional Family Medical History / Comment(s): born with hole in heart, valve replacements, heart attacks, pacemaker General Exam Limitations: no limitations General appearance: alert, in no apparent distress Head exam: Present: atraumatic, normocephalic. Absent: normal inspection ( There is incision with Steri-Strips over noted on occipital region extending to the neck) Eye exam: Present: normal appearance, PERRL, EOMI. Absent: scleral icterus, conjunctival injection, periorbital swelling ENT exam: Present: normal exam, normal oropharynx, mucous membranes moist, TM's normal bilaterally, normal external ear exam Neck exam: Present: full ROM. Absent: normal inspection (Incision as prior noted), tenderness, meningismus, lymphadenopathy Respiratory exam: Present: normal lung sounds bilaterally. Absent: respiratory distress, wheezes, rales, rhonchi, stridor Cardiovascular Exam: Present: regular rate, normal rhythm, normal heart sounds. Absent: systolic murmur, diastolic murmur, rubs, gallop, clicks GI/Abdominal exam: Present: soft, normal bowel sounds. Absent: distended, tenderness, guarding, rebound, rigid Back exam: Present: full ROM, CVA tenderness (R). Absent: tenderness, CVA tenderness (L), paraspinal tenderness, vertebral tenderness Neurological exam: Present: alert, oriented X3, CN II-XII intact, reflexes normal. Absent: motor sensory deficit Skin exam: Present: warm, dry, intact, normal color. Absent: rash Course Vital Signs 09/04/17 09/04/17 09:12 11:52 Temperature 97.8 F Pulse Rate 83 88 Respiratory 20 20 Rate Blood Pressure 123/80 124/67 O2 Sat by Pulse 100 98 Oximetry Medical Decision Making - Medical Decision Making 37-year-old female presented for flank pain ground the right compared to left. Patient does have nitrate positive urine recent Val[place] catheter exposure and minimal white cells. Patient we treated for possible urinary tract infection she is advised follow-up with her doctor on Wednesday and return if any symptoms worsen. Case discussed with Dr. goldberg - Lab Data Result diagrams: 09/04/17 10:49 09/04/17 10:49 Lab Results 09/04/17 09/04/17 09/04/17 Range/Units 09:32 09:32 10:49 WBC 11.8 H (3.8-10.6) k/uL RBC 3.60 L (3.80-5.40) m/uL Hgb 10.6 L (11.4-16.0) gm/dL Hct 33.4 L (34.0-46.0) % MCV 92.8 (80.0-100.0) fL MCH 29.4 (25.0-35.0) pg MCHC 31.7 (31.0-37.0) g/dL RDW 12.9 (11.5-15.5) % Plt Count 248 (150-450) k/uL Neutrophils % 88 % Lymphocytes % 9 % Monocytes % 3 % Eosinophils % 0 % Basophils % 0 % Neutrophils # 10.4 H (1.3-7.7) k/uL Lymphocytes # 1.0 (1.0-4.8) k/uL Monocytes # 0.4 (0-1.0) k/uL Eosinophils # 0.0 (0-0.7) k/uL Basophils # 0.0 (0-0.2) k/uL Sodium (137-145) mmol/L Potassium (3.5-5.1) mmol/L Chloride (98-107) mmol/L Carbon Dioxide (22-30) mmol/L Anion Gap mmol/L BUN (7-17) mg/dL Creatinine (0.52-1.04) mg/dL Est GFR (MDRD) Af Amer (>60 ml/min/1.73 sqM) Est GFR (MDRD) Non-Af (>60 ml/min/1.73 sqM) Glucose (74-99) mg/dL Plasma Lactic Acid [place] (0.7-2.0) mmol/L Calcium (8.4-10.2) mg/dL Total Bilirubin (0.2-1.3) mg/dL AST (14-36) U/L ALT (9-52) U/L Alkaline Phosphatase (38-126) U/L Total Protein (6.3-8.2) g/dL Albumin (3.5-5.0) g/dL Amylase (30-110) U/L Lipase (23-300) U/L Urine Color Light Yellow Urine Appearance Cloudy H (Clear) Urine pH 6.5 (5.0-8.0) Ur Specific [place] 1.007 (1.001-1.035) Urine Protein Negative (Negative) Urine Glucose (UA) Negative (Negative) Urine Ketones Negative (Negative) Urine Blood Negative (Negative) Urine Nitrite Positive H (Negative) Urine Bilirubin Negative (Negative) Urine Urobilinogen <2.0 (<2.0) mg/dL Ur Leukocyte Esterase Small H (Negative) Urine WBC 2 (0-5) /hpf Ur Squamous Epith Cells 2 (0-4) /hpf Urine Bacteria Rare H (None) /hpf Urine Mucus Rare H (None) /hpf Urine HCG, Qual Not Detected (Not Detectd) 09/04/17 09/04/17 Range/Units 10:49 10:49 WBC (3.8-10.6) k/uL RBC (3.80-5.40) m/uL Hgb (11.4-16.0) gm/dL Hct (34.0-46.0) % MCV (80.0-100.0) fL MCH (25.0-35.0) pg MCHC (31.0-37.0) g/dL RDW (11.5-15.5) % Plt Count (150-450) k/uL Neutrophils % % Lymphocytes % % Monocytes % % Eosinophils % % Basophils % % Neutrophils # (1.3-7.7) k/uL Lymphocytes # (1.0-4.8) k/uL Monocytes # (0-1.0) k/uL Eosinophils # (0-0.7) k/uL Basophils # (0-0.2) k/uL Sodium 141 (137-145) mmol/L Potassium 3.9 (3.5-5.1) mmol/L Chloride 107 (98-107) mmol/L Carbon Dioxide 26 (22-30) mmol/L Anion Gap 8 mmol/L BUN 8 (7-17) mg/dL Creatinine 0.60 (0.52-1.04) mg/dL Est GFR (MDRD) Af Amer >60 (>60 ml/min/1.73 sqM) Est GFR (MDRD) Non-Af >60 (>60 ml/min/1.73 sqM) Glucose 105 H (74-99) mg/dL Plasma Lactic Acid [place] 0.8 (0.7-2.0) mmol/L Calcium 9.0 (8.4-10.2) mg/dL Total Bilirubin 0.4 (0.2-1.3) mg/dL AST 32 (14-36) U/L ALT 125 H (9-52) U/L Alkaline Phosphatase 84 (38-126) U/L Total Protein 6.1 L (6.3-8.2) g/dL Albumin 3.4 L (3.5-5.0) g/dL Amylase <30 L (30-110) U/L Lipase 34 (23-300) U/L Urine Color Urine Appearance (Clear) Urine pH (5.0-8.0) Ur Specific [place] (1.001-1.035) Urine Protein (Negative) Urine Glucose (UA) (Negative) Urine Ketones (Negative) Urine Blood (Negative) Urine Nitrite (Negative) Urine Bilirubin (Negative) Urine Urobilinogen (<2.0) mg/dL Ur Leukocyte Esterase (Negative) Urine WBC (0-5) /hpf Ur Squamous Epith Cells (0-4) /hpf Urine Bacteria (None) /hpf Urine Mucus (None) /hpf Urine HCG, Qual (Not Detectd) Disposition Clinical Impression: Urinary tract infection Disposition: HOME SELF-CARE Condition: Stable Instructions: Urinary Tract Infection in Women (ED) Additional Instructions: Please return to the Emergency Department if symptoms worsen or any other concerns. Prescriptions: Ciprofloxacin HCl [Cipro] 500 mg PO Q12HR #14 tablet Referrals: Mikki Mansfield MD [Primary Care Provider] - 1-2 days Time of Disposition: 11:59
[2017-09-04] MEDS ORDERED: ONDANSETRON ODT 4 MG TAB PO STA (10:23)
[2017-09-04 10:37] LABS: Appearance,Urine Cloudy (Clear); Bacteria,Urine Rare /hpf; Bilirubin,Urine Negative (Negative); Glucose,Urine (UA) Negative (Negative); Ketones,Urine Negative (Negative); Leukocyte Esterase,Urine Small (Negative); Mucus,Urine Rare /hpf; Nitrite,Urine Positive (Negative); PH, Urine 6.5 (5.0-8.0); Particle Count 47744; Protein,Urine Negative (Negative); Specific Gravity,Urine 1.007 (1.001-1.035); Squamous Epithelial Cell,Urine 2 /hpf (0-4); UA Billing (MACRO vs. MICRO) MICRO; Urobilinogen,Urine <2.0 mg/dL (<2.0); WBC,Urine 2 /hpf (0-5)
[2017-09-04 11:08] LABS: Basophils % (A) 0 %; CH 29.9; CHCM 32.3; Eosinophils % (A) 0 %; HCT 33.4 % (34.0-46.0); HDW 2.27; HGB 10.6 gm/dL (11.4-16.0); Luc # (Auto) 0.04; Luc % (Auto) 0; Lymphocytes % (A) 9 %; MCH 29.4 pg (25.0-35.0); MCHC 31.7 g/dL (31.0-37.0); MCV 92.8 fL (80.0-100.0); Mean Platelet Volume 7.6; Monocytes # (A) 0.4 k/uL (0-1.0); Monocytes % (A) 3 %; Neutrophils # (A) 10.4 k/uL (1.3-7.7); Neutrophils % (A) 88 %; RDW 12.9 % (11.5-15.5); WBC 11.8 k/uL (3.8-10.6)
[2017-09-04 11:17] LABS: ALT 125 U/L (9-52); AST 32 U/L (14-36); Alkaline Phosphatase 84 U/L (38-126); Amylase <30 U/L (30-110); Anion Gap 8 mmol/L; Blood Urea Nitrogen 8 mg/dL (7-17); Carbon Dioxide 26 mmol/L (22-30); Chloride 107 mmol/L (98-107); Glucose 105 mg/dL (74-99); Non-African American GFR(MDRD) >60 (>60 ml/min/1.73 sqM); Potassium 3.9 mmol/L (3.5-5.1); Sodium 141 mmol/L (137-145); Total Bilirubin 0.4 mg/dL (0.2-1.3); Total Protein 6.1 g/dL (6.3-8.2)
--- NOTE | 2017-09-04 11:48 | XR ---
EXAMINATION TYPE: XR KUB , 2 VIEWS DATE OF EXAM ORDERED: 09/04/2017 HISTORY: abdominal pain. COMPARISON: Previous study dated 03/12/2016 as well as a previous CT scan of the abdomen and pelvis da arnulfo 07/18/2017. FINDINGS: There has been a previous cholecystectomy. The abdominal gas pattern is normal. There is no evidence of obstruction or free air. No unusual calc ifications are seen. The lung bases are clear. There is a gentle levoscoliosis. IMPRESSION: NO ACUTE ABDOMINAL ABNORMALITY.
[2017-09-04 12:17] VITALS: BP 113/75; PULSE 70; RESP 16
== END 2017-09-04 12:17 | disposition home or self-care (01) ==
LOC: EC 09:07
DX: N39.0 Urinary tract infection, site not specified (principal); R11.2 Nausea with vomiting, unspecified; Z87.891 Personal history of nicotine dependence; Z79.899 Other long term (current) drug therapy; Z88.8 Allergy status to other drugs, medicaments and biological substances; Z90.49 Acquired absence of other specified parts of digestive tract
CPT/HCPCS: 99283 ×2; 96374 ×2; 36415; 80053; 82150; 83605; 83690; 85025; 81001; 81025; 87040; 74000; J2270

== ENCOUNTER → 2018-03-10 | Outpatient (CLI) | payer OTHER ==
--- NOTE | 2018-03-10 15:22 | CONS ---
CONSULTATION DATE OF SERVICE: 03/10/2018 38-year-old lady has been evaluated in [facility] Center for difficulties to initiate sleep and multiple awakenings from sleep. HISTORY OF PRESENT ILLNESS/SLEEP WAKE EVALUATION: The patient goes to bed usually around 9 to 10 p.m., but falling asleep at the range at midnight until 3:00 a.m. She watching TV in her bedroom and also may play card games on her telephone. After falling asleep she has multiple awakenings from sleep up to 4 times, some of that related to pain in the back, neck or head and some may be for unknown for patient reason. The patient may have nocturia once. In the morning she wakes up tired, has problems with memory, concentration, irritability, anxiety. Stark Sleepiness Scale is 7. PAST MEDICAL HISTORY: Positive for Chiari malformation, anxiety, back pain, neck problems, head pain. PAST SURGICAL HISTORY: Several surgeries for Chiari malformations, the last in August of 2017, cholecystectomy, tubal ligation. MEDICATIONS: Motrin, Zofran, alprazolam, [place], Flexeril, Adipex, Fioricet. SOCIAL HISTORY: Positive for occasional smoking in teenager age. Alcohol consumption occasional. REVIEW OF SYSTEMS: Difficulties to initiate sleep, multiple awakenings from sleep, tiredness and sleepiness during the day. The patient may take naps up to once a day. He does not feel refreshed after naps. FAMILY HISTORY: Hypertension, heart problems, fibromyalgia, asthma, sinus headaches, bronchitis, lung problems, snoring, pneumonia, headaches, cancer, diabetes. PHYSICAL EXAM: GENERAL lady without distress. VITAL SIGNS BP 124/82, HR 84, RR 14, height 5 feet 10 inches, weight 222.2, BMI 31.8. Neck is 13-3/4 inches in circumference. Temperature 98.0. Oxygen saturation on room air 100%. HEENT PERRLA, EOMI, evaluation of oropharynx showed moderately low position of soft palate. NECK Supple, no JVD. Thyroid is not palpable. LUNGS Clear to percussion and to auscultation. Good air exchange. No wheezing or rhonchi. HEART S1, S2 regular. No murmurs, gallops, or rubs. ABDOMEN Soft and nontender. Bowel sounds are present. No organomegaly appreciated. EXTREMITIES No clubbing or cyanosis. [employer] Awake, alert, and oriented X3. Cranial nerves 2 to 7 intact. There is no fasciculation or atrophy. noted. No focal deficits observed. IMPRESSION: 1. Multiple awakenings from sleep, small oropharyngeal air space, obstructive sleep apnea-hypopnea syndrome. 2. Difficulties to initiate sleep, insomnia, psychophysiological and secondary to anxiety. 3. History of anxiety. 4. History of Chiari malformation. 5. Status post multiple surgeries for Chiari malformation, last in August 2017. 6. Status post cholecystectomy. 7. Status post tubal ligation. 8. Back pain. 9. Neck pain. 10.Headaches. PLAN: 1. Polysomnography for evaluation of patient's breathing during sleep. 2. CPAP/BiPAP titration if sleep study confirms obstructive sleep apnea-hypopnea syndrome. 3. Preferable position during sleep on the side. 4. No driving if patient feels any sleepiness. 5. I will see patient for follow up visit to explain results of testing and following plan. 6. I discussed with the patient physiological techniques for treatment of insomnia, including stimulus control, paradoxical intention, no watching clock, unnecessary worry time. Thank you very much for referring this patient for consultation. Kenny Gomez MD, PhD, FAASM Diplomat of [place] [employer] [employer] Lieutenant [employer] [facility] [place] MMODL / ANDREWN: [id number] /
== END | disposition home or self-care (01) ==
LOC: SLEEP 13:11
PROVIDERS: ATTEND Internal Medicine
DX: G47.33 Obstructive sleep apnea (adult) (pediatric) (principal); F41.9 Anxiety disorder, unspecified; M54.9 Dorsalgia, unspecified; M54.2 Cervicalgia; R51 Headache; Z90.49 Acquired absence of other specified parts of digestive tract; Z98.51 Tubal ligation status; Z87.891 Personal history of nicotine dependence; Z79.891 Long term (current) use of opiate analgesic; Z82.79 Family history of other congenital malformations, deformations and chromosomal abnormalities; Z98.890 Other specified postprocedural states; Z79.899 Other long term (current) drug therapy; Z79.1 Long term (current) use of non-steroidal anti-inflammatories (NSAID)
CPT/HCPCS: 99211

== ENCOUNTER 2018-11-22 02:44 | Emergency (ER) | payer OTHER ==
[2018-11-22 02:52] VITALS: TEMP 97.9
[2018-11-22 03:38] LABS: Appearance,Urine Cloudy (Clear); Bacteria,Urine Occasional /hpf; Bilirubin,Urine Negative (Negative); Blood,Urine Negative (Negative); Color,Urine Yellow; Glucose,Urine (UA) Negative (Negative); Ketones,Urine Negative (Negative); Leukocyte Esterase,Urine Small (Negative); Mucus,Urine Few /hpf; Nitrite,Urine Negative (Negative); PH, Urine 5.5 (5.0-8.0); Protein,Urine Negative (Negative); RBC,Urine 1 /hpf (0-5); Specific Gravity,Urine 1.014 (1.001-1.035); Squamous Epithelial Cell,Urine 1 /hpf (0-4); Urobilinogen,Urine <2.0 mg/dL (<2.0); WBC,Urine 6 /hpf (0-5)
--- NOTE | 2018-11-22 04:27 | XR ---
EXAMINATION TYPE: XR KUB DATE OF EXAM: 11/22/2018 COMPARISON: 09/04/2017 HISTORY: Abdominal pain TECHNIQUE: 2 views upright FINDINGS: There is no sign of intestinal obstruction or pneumoperitoneum. Fecal pattern is normal. Nunu ng bases are clear. There are no pathologic calcifications over the kidneys. IMPRESSION: Nonacute abdomen. No change. Minimal lumbar dextroscoliosis unchanged.
[2018-11-22] MEDS ORDERED: KETOROLAC 30 MG/ML 1 ML VIAL IVP STA (04:41)
[2018-11-22] MEDS ORDERED: SODIUM CHLORIDE 0.9% 1,000 ML IV STA (04:41)
[2018-11-22] MEDS ORDERED: ONDANSETRON 4 MG/2 ML VIAL IVP STA (04:41)
--- NOTE | 2018-11-22 04:58 | ED ---
Abdominal Pain HPI - General Chief Complaint: Abdominal Pain Stated Complaint: Back/side pain Source: patient, RN notes reviewed Mode of arrival: ambulatory Limitations: no limitations - History of Present Illness Initial Comments: Jeanette is a 38-year-old female presents to the emergency department today for evaluation of 2-3 days of bilateral flank pain. Patient reports she has a history of kidney stones, hydronephrosis and kidney infections in the past. Patient reports his pain is progressively worsened over 2 days is associated with occasional dysuria, no urinary frequency or hematuria. Patient ports tonight she can't stand the pain anymore so she came to ER for evaluation. She denies any associated fevers, chills, nausea vomiting chest pain or shortness of breath. - Related Data Home Medications Medication Instructions Recorded Confirmed ALPRAZolam [Xanax] 0.5 mg PO TID PRN 11/01/16 08/12/17 Acetaminophen with Codeine 1 tab PO Q6HR PRN 11/01/16 08/12/17 [Tylenol w/codeine #4] Ibuprofen [Motrin] 800 mg PO Q8HR PRN 11/01/16 08/12/17 Ondansetron Odt [Zofran ODT] 4 mg PO Q8HR PRN 11/01/16 08/12/17 Butalb/APAP/Caff 50-325-40Mg 1 tab PO Q4H PRN 05/27/17 08/12/17 [Fioricet 50-325-40] Folic Acid 1 mg PO DAILY 05/27/17 08/12/17 Magnesium 400 mg PO HS 05/27/17 08/12/17 Phentermine HCl [Adipex-P] 37.5 mg PO QAM 05/27/17 08/12/17 Previous Rx's Medication Instructions Recorded Ibuprofen 800 mg PO Q6HR PRN #20 tablet 05/27/17 Potassium Chloride ER [K-Dur 20] 20 meq PO BID #14 tab 05/27/17 Ibuprofen [Motrin] 600 mg PO Q6HR PRN #20 tab 07/18/17 Ciprofloxacin HCl [Cipro] 500 mg PO Q12HR #14 tablet 09/04/17 Nitrofurantoin Monohyd/M-Cryst 100 mg PO Q12HR #6 cap 11/22/18 [Macrobid] Allergies Allergy/AdvReac Type Severity Reaction Status Date / Time metoclopramide HCl Allergy Hallucinati Verified 11/22/18 02:52 [From [facility]] ons Review of Systems ROS Statement: Those systems with pertinent positive or pertinent negative responses have been documented in the HPI. ROS Other: All systems not noted in ROS Statement are negative. Past Medical History Past Medical History: Pulmonary Embolus (PE), Renal Disease Additional Past Medical History / Comment(s): kidney stones with stent, chairi malformation, tricuspid regurgitation, left ventricular hypertrophy History of Any Multi-Drug Resistant Organisms: None Reported Past Surgical History: Section, Cholecystectomy, Tubal Ligation Additional Past Surgical History / Comment(s): renal stent, surgery for chairi malformation may 24, brain decompression 09/01/17 Past Anesthesia/Blood Transfusion Reactions: Postoperative Nausea & Vomiting ( PONV) Past Psychological History: Anxiety Smoking Status: Former smoker Past Alcohol Use History: Rare Past Drug Use History: Marijuana - Past Family History Father Additional Family Medical History / Comment(s): born with hole in heart, valve replacements, heart attacks, pacemaker General Exam - General Exam Comments Initial Comments: Physical Exam GENERAL: Patient is well-developed and well-nourished. Patient is nontoxic and well-hydrated and appears uncomfortable HENT: Normocephalic, Atraumatic. EYES: PERRL, EOMI PULMONARY: Unlabored respirations. No audible rales rhonchi or wheezing was noted. CARDIOVASCULAR: There is a regular rate and rhythm without any murmurs gallops or rubs. ABDOMEN: Soft and nontender with normal bowel sounds. Pain to percussion of bilateral flanks SKIN: Skin is clear with no lesions or rashes and otherwise unremarkable. : Deferred NEUROLOGIC: Patient is alert and oriented x3. Moving all extremities spontaneously MUSCULOSKELETAL: Normal extremities with adequate strength and full range of motion. No lower extremity swelling or edema. No calf tenderness. PSYCHIATRIC: Normal psychiatric evaluation. Limitations: no limitations Limitations: no limitations Course Vital Signs 11/22/18 11/22/18 02:47 07:05 Temperature 97.9 F Pulse Rate 68 56 L Respiratory 18 16 Rate Blood Pressure 114/77 113/66 O2 Sat by Pulse 100 100 Oximetry Medical Decision Making - Medical Decision Making Patient was seen and evaluated history was obtained from the patient and review of medical record Patient with bilateral flank pain for 2-3 days duration Labs and imaging were ordered Alt all times are made to obtain IV access, blood was obtained but we were unable to obtain IV access Labs reveal chronic anemia, normal kidney function CT of the abdomen with no acute findings Patient agitated asking to leave. I did discuss the lab and CT results with the patient. Advised her that there is no evidence of kidney stone does appear that she may have a very early urinary tract infection we'll discharge home with 3 days of Macrobid. - Lab Data Result diagrams: 11/22/18 06:14 11/22/18 04:56 Lab Results 11/22/18 11/22/18 11/22/18 Range/Units 02:52 02:52 04:56 WBC (3.8-10.6) k/uL RBC (3.80-5.40) m/uL Hgb (11.4-16.0) gm/dL Hct (34.0-46.0) % MCV (80.0-100.0) fL MCH (25.0-35.0) pg MCHC (31.0-37.0) g/dL RDW (11.5-15.5) % Plt Count (150-450) k/uL Neutrophils % % Lymphocytes % % Monocytes % % Eosinophils % % Basophils % % Neutrophils # (1.3-7.7) k/uL Lymphocytes # (1.0-4.8) k/uL Monocytes # (0-1.0) k/uL Eosinophils # (0-0.7) k/uL Basophils # (0-0.2) k/uL Anisocytosis Sodium 140 (137-145) mmol/L Potassium 4.5 (3.5-5.1) mmol/L Chloride 113 H (98-107) mmol/L Carbon Dioxide 20 L (22-30) mmol/L Anion Gap 7 mmol/L BUN 18 H (7-17) mg/dL Creatinine 0.65 (0.52-1.04) mg/dL Est GFR (CKD-EPI)AfAm >90 (>60 ml/min/1.73 sqM) Est GFR (CKD-EPI)NonAf >90 (>60 ml/min/1.73 sqM) Glucose 92 (74-99) mg/dL Calcium 8.6 (8.4-10.2) mg/dL Total Bilirubin 0.5 (0.2-1.3) mg/dL AST 28 (14-36) U/L ALT 26 (9-52) U/L Alkaline Phosphatase 35 L (38-126) U/L Total Protein 6.2 L (6.3-8.2) g/dL Albumin 3.6 (3.5-5.0) g/dL Urine Color Yellow Urine Appearance Cloudy H (Clear) Urine pH 5.5 (5.0-8.0) Ur Specific [place] 1.014 (1.001-1.035) Urine Protein Negative (Negative) Urine Glucose (UA) Negative (Negative) Urine Ketones Negative (Negative) Urine Blood Negative (Negative) Urine Nitrite Negative (Negative) Urine Bilirubin Negative (Negative) Urine Urobilinogen <2.0 (<2.0) mg/dL Ur Leukocyte Esterase Small H (Negative) Urine RBC 1 (0-5) /hpf Urine WBC 6 H (0-5) /hpf Ur Squamous Epith Cells 1 (0-4) /hpf Urine Bacteria Occasional H (None) /hpf Urine Mucus Few H (None) /hpf Urine HCG, Qual Not Detected (Not Detectd) 11/22/18 Range/Units 06:14 WBC 7.0 (3.8-10.6) k/uL RBC 3.59 L (3.80-5.40) m/uL Hgb 10.4 L (11.4-16.0) gm/dL Hct 31.9 L (34.0-46.0) % MCV 89.0 (80.0-100.0) fL MCH 29.0 (25.0-35.0) pg MCHC 32.6 (31.0-37.0) g/dL RDW 16.2 H (11.5-15.5) % Plt Count 216 (150-450) k/uL Neutrophils % 56 % Lymphocytes % 34 % Monocytes % 5 % Eosinophils % 4 % Basophils % 0 % Neutrophils # 3.9 (1.3-7.7) k/uL Lymphocytes # 2.3 (1.0-4.8) k/uL Monocytes # 0.3 (0-1.0) k/uL Eosinophils # 0.3 (0-0.7) k/uL Basophils # 0.0 (0-0.2) k/uL Anisocytosis Slight Sodium (137-145) mmol/L Potassium (3.5-5.1) mmol/L Chloride (98-107) mmol/L Carbon Dioxide (22-30) mmol/L Anion Gap mmol/L BUN (7-17) mg/dL Creatinine (0.52-1.04) mg/dL Est GFR (CKD-EPI)AfAm (>60 ml/min/1.73 sqM) Est GFR (CKD-EPI)NonAf (>60 ml/min/1.73 sqM) Glucose (74-99) mg/dL Calcium (8.4-10.2) mg/dL Total Bilirubin (0.2-1.3) mg/dL AST (14-36) U/L ALT (9-52) U/L Alkaline Phosphatase (38-126) U/L Total Protein (6.3-8.2) g/dL Albumin (3.5-5.0) g/dL Urine Color Urine Appearance (Clear) Urine pH (5.0-8.0) Ur Specific [place] (1.001-1.035) Urine Protein (Negative) Urine Glucose (UA) (Negative) Urine Ketones (Negative) Urine Blood (Negative) Urine Nitrite (Negative) Urine Bilirubin (Negative) Urine Urobilinogen (<2.0) mg/dL Ur Leukocyte Esterase (Negative) Urine RBC (0-5) /hpf Urine WBC (0-5) /hpf Ur Squamous Epith Cells (0-4) /hpf Urine Bacteria (None) /hpf Urine Mucus (None) /hpf Urine HCG, Qual (Not Detectd) Disposition Clinical Impression: Flank pain, Urinary tract infection Disposition: HOME SELF-CARE Instructions: Abdominal Pain (ED) Prescriptions: Nitrofurantoin Monohyd/M-Cryst [Macrobid] 100 mg PO Q12HR #6 cap Is patient prescribed a controlled substance at d/c from ED?: No Referrals: Mikki Mansfield MD [Primary Care Provider] - 1-2 days
[2018-11-22 05:15] LABS: Anion Gap 7 mmol/L; Calcium 8.6 mg/dL (8.4-10.2); Carbon Dioxide 20 mmol/L (22-30); Chloride 113 mmol/L (98-107); Glucose 92 mg/dL (74-99); Sodium 140 mmol/L (137-145); Total Bilirubin 0.5 mg/dL (0.2-1.3)
[2018-11-22 05:23] LABS: Blood Urea Nitrogen 18 mg/dL (7-17); Potassium 4.5 mmol/L (3.5-5.1); Total Protein 6.2 g/dL (6.3-8.2)
[2018-11-22 05:24] LABS: ALT 26 U/L (9-52); AST 28 U/L (14-36); Albumin 3.6 g/dL (3.5-5.0); Alkaline Phosphatase 35 U/L (38-126)
--- NOTE | 2018-11-22 05:56 | CT ---
EXAMINATION TYPE: CT abdomen pelvis wo con DATE OF EXAM: 11/22/2018 COMPARISON: 07/18/2017 HISTORY: abdominal pain CT DLP: 726.2 mGycm Automated exposure control for dose reduction was used. TECHNIQUE: Helical acquisition of images was performed from the lung bases through the pelvis. FINDINGS: Lung bases are clear. There is no pleural effusion. Heart size is normal. There is no pericardial eff usion. There are clips from cholecystectomy. Liver spleen pancreas appear normal. Bile ducts are not dilated. There is no adrenal mass. Kidneys have normal size and contour. There is no hydronephrosis. There is no retroperitoneal adenopathy. Bladder distends smoothly. There is no inguinal hernia. Uteru s is anteverted. I see no pelvic mass. There is no free fluid in the pelvis. There is no evidence of a bowel obstruction. Appendix is not definitely seen. There is no evidence of a thickened appendix. T he lumbar vertebra have normal spacing and alignment. Posterior elements are intact. There is no comp ression fracture. Bony pelvis is intact. There is no evidence of free air. There is no ascites. I see no intestinal wall thickening. There are a few pericecal lymph nodes that measure up to 5 mm. IMPRESSION: APPENDIX NOT SEEN. NO SIGN OF APPENDICITIS. THERE IS CLEARING OF THE LARGE CYST ON THE RIGHT OVARY CO MPARED TO OLD EXAM. NO SIGN OF ACUTE ABDOMEN AND PELVIS. THERE ARE SMALL PERICECAL LYMPH NODES THAT A RE NONSPECIFIC. NO RENAL OBSTRUCTION.
[2018-11-22 06:27] LABS: Anisocytosis Slight; Basophils % (A) 0 %; Eosinophils # (A) 0.3 k/uL (0-0.7); Eosinophils % (A) 4 %; HCT 31.9 % (34.0-46.0); HGB 10.4 gm/dL (11.4-16.0); Lymphocytes # (A) 2.3 k/uL (1.0-4.8); Lymphocytes % (A) 34 %; MCHC 32.6 g/dL (31.0-37.0); Mean Platelet Volume 7.6; Monocytes # (A) 0.3 k/uL (0-1.0); Monocytes % (A) 5 %; Neutrophils # (A) 3.9 k/uL (1.3-7.7); Neutrophils % (A) 56 %; Platelet Count 216 k/uL (150-450); RBC 3.59 m/uL (3.80-5.40); RDW 16.2 % (11.5-15.5)
[2018-11-22 07:17] VITALS: BP 113/66; PULSE 56; RESP 16
== END 2018-11-22 07:07 | disposition home or self-care (01) ==
LOC: EC 02:44
DX: N39.0 Urinary tract infection, site not specified (principal); D64.9 Anemia, unspecified; F41.9 Anxiety disorder, unspecified; Q07.00 Arnold-Chiari syndrome without spina bifida or hydrocephalus; Z86.711 Personal history of pulmonary embolism; Z87.891 Personal history of nicotine dependence; Z87.442 Personal history of urinary calculi; Z96.0 Presence of urogenital implants; Z90.49 Acquired absence of other specified parts of digestive tract; Z98.51 Tubal ligation status; Z98.890 Other specified postprocedural states; Z79.899 Other long term (current) drug therapy; Z88.8 Allergy status to other drugs, medicaments and biological substances
CPT/HCPCS: 36415; 74018; 74176; 80053; 81001; 81025; 85025; 99284

== ENCOUNTER 2020-06-10 10:24 | Emergency (ER) | payer MEDICARE, OTHER ==
[2020-06-10] MEDS ORDERED: ASPIRIN 81 MG PO STA (10:50)
[2020-06-10] MEDS ORDERED: MORPHINE SULFATE 4 MG/ML SYRINGE IV STA (10:50)
[2020-06-10] MEDS ORDERED: ONDANSETRON 4 MG/2 ML VIAL IVP STA (10:50)
--- NOTE | 2020-06-10 10:53 | ED ---
Chest Pain HPI - General Chief Complaint: Chest Pain Stated Complaint: chest pain Time Seen by Provider: 06/10/20 10:37 Source: patient, RN notes reviewed Mode of arrival: wheelchair Limitations: no limitations - History of Present Illness Initial Comments: 40-year-old female presents emergency Department with chief complaint of left- sided chest discomfort. Patient states it woke her up around 2 AM. Patient's pain has been constant ever since states to the left side radiates to her arm and back. Patient does have a history of PE. Patient denies any similar cardiac history. Patient denies hypertension hyperlipidemia and diabetes. She states it hurts when she takes a deep breath. Patient states hurts when she twists. Patient states that she's had some pain intermittently over the last couple months in which she was treated with prednisone. Patient states that she also has seen a assignment officer. Patient denies any abdominal pain denies any nausea vomiting diarrhea constipation no fevers or chills. - Related Data Home Medications Medication Instructions Recorded Confirmed ALPRAZolam [Xanax] 0.5 mg PO TID PRN 11/01/16 06/10/20 Ibuprofen [Motrin] 800 mg PO Q8HR PRN 11/01/16 06/10/20 Erenumab-Aooe [Aimovig 70 mg SQ Q30D 06/10/20 06/10/20 Autoinjector] HYDROcodone/APAP 10-325MG [[place] 1 tab PO Q6HR PRN 06/10/20 06/10/20 10-325] Naratriptan HCl 2.5 mg PO DIRECTED PRN 06/10/20 06/10/20 Ondansetron Odt [Zofran Odt] 8 mg PO Q8HR PRN 06/10/20 06/10/20 Triamcinolone 0.1% Cream [Kenalog 1 applicatio TOPICAL TID PRN MDD 06/10/20 06/10/20 0.1% Cream] LEFT BREAST hydrOXYzine HCL [Atarax] 10 mg PO TID PRN 06/10/20 06/10/20 methocarbamoL [Robaxin] 500 mg PO QID 06/10/20 06/10/20 oxyCODONE-APAP 5-325MG [Percocet 1 tab PO ONCE PRN 06/10/20 06/10/20 5-325 mg] Previous Rx's Medication Instructions Recorded HYDROcodone/APAP 10-325MG [[place] 1 tab PO Q6HR PRN 3 Days #12 tab 06/10/20 10-325] Ketorolac [Toradol] 10 mg PO Q8HR #15 tab 06/10/20 Allergies Allergy/AdvReac Type Severity Reaction Status Date / Time metoclopramide HCl Allergy Hallucinati Verified 06/10/20 11:21 [From Reglan] ons Review of Systems ROS Statement: Those systems with pertinent positive or pertinent negative responses have been documented in the HPI. ROS Other: All systems not noted in ROS Statement are negative. 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, brain decompression 09/01/17 Past Anesthesia/Blood Transfusion Reactions: Postoperative Nausea & Vomiting (PONV) Past Psychological History: Anxiety Smoking Status: Never smoker Past Alcohol Use History: None Reported, Rare Past Drug Use History: None Reported, Marijuana - Past Family History Father Additional Family Medical History / Comment(s): born with hole in heart, valve replacements, heart attacks, pacemaker General Exam Limitations: no limitations General appearance: alert, in no apparent distress Head exam: Present: atraumatic, normocephalic, normal inspection Eye exam: Present: normal appearance, PERRL, EOMI. Absent: scleral icterus, conjunctival injection, periorbital swelling ENT exam: Present: normal exam, normal oropharynx, mucous membranes moist Neck exam: Present: normal inspection, full ROM. Absent: tenderness, meningismus, lymphadenopathy Respiratory exam: Present: normal lung sounds bilaterally, chest wall tenderness (Moderate left-sided). Absent: respiratory distress, wheezes, rales, rhonchi, stridor Cardiovascular Exam: Present: regular rate, normal rhythm, normal heart sounds. Absent: systolic murmur, diastolic murmur, rubs, gallop, clicks GI/Abdominal exam: Present: soft, normal bowel sounds. Absent: distended, tenderness, guarding, rebound, rigid Back exam: Absent: CVA tenderness (R), CVA tenderness (L) Neurological exam: Present: alert, oriented X3 Skin exam: Present: warm, dry, intact, normal color. Absent: rash Course Vital Signs 06/10/20 06/10/20 06/10/20 10:31 10:59 13:50 Temperature 97.9 F Pulse Rate 66 60 66 Respiratory 18 18 18 Rate Blood Pressure 126/81 118/68 106/60 O2 Sat by Pulse 100 97 99 Oximetry Chest Pain MDM - MDM Labs CT EKG x-ray reviewed no acute findings. This most likely related to pleurisy as she has a chest pain no evidence of the cardiac enzymes are negative. Patient will be discharged in stable condition with close follow-up return parameters were discussed. Disposition Clinical Impression: Pleurisy Disposition: HOME SELF-CARE Condition: Stable Instructions (If sedation given, give patient instructions): Pleurisy (ED) Additional Instructions: Please return to the Emergency Department if symptoms worsen or any other concerns. Prescriptions: HYDROcodone/APAP 10-325MG [[place] 10-325] 1 tab PO Q6HR PRN 3 Days #12 tab PRN Reason: pain Ketorolac [Toradol] 10 mg PO Q8HR #15 tab Is patient prescribed a controlled substance at d/c from ED?: Yes When asked, does pt state using other controlled substances?: Yes If prescribed controlled substance>3 days was MAPS reviewed?: Prescribed <3 Days If opioid is for acute pain is fill amount 7 days or less?: Yes If Rx opioid, was Start Talking consent form obtained?: Yes Referrals: Mikki Mansfield MD [Primary Care Provider] - 1-2 days Time of Disposition: 14:35
[2020-06-10 11:46] LABS: Anisocytosis Slight; Basophils % (A) 0 %; Eosinophils # (A) 0.1 k/uL (0-0.7); Eosinophils % (A) 2 %; HCT 30.8 % (34.0-46.0); HGB 9.9 gm/dL (11.4-16.0); Hypochromasia Slight; Lymphocytes # (A) 1.6 k/uL (1.0-4.8); Lymphocytes % (A) 24 %; MCH 25.9 pg (25.0-35.0); MCHC 32.2 g/dL (31.0-37.0); MCV 80.4 fL (80.0-100.0); Mean Platelet Volume 8.2; Monocytes # (A) 0.3 k/uL (0-1.0); Monocytes % (A) 4 %; Neutrophils # (A) 4.4 k/uL (1.3-7.7); Neutrophils % (A) 69 %; Platelet Count 260 k/uL (150-450); RBC 3.83 m/uL (3.80-5.40); WBC 6.4 k/uL (3.8-10.6)
--- NOTE | 2020-06-10 11:47 | XR ---
EXAMINATION TYPE: XR chest 2V DATE OF EXAM: 06/10/2020 COMPARISON: 05/27/2017 INDICATION: Chest pain foot swelling TECHNIQUE: Frontal and lateral views of the chest are obtained. FINDINGS: The heart size is normal. The pulmonary vasculature is normal. The lungs are clear. IMPRESSION: 1. No acute pulmonary process.
[2020-06-10] MEDS ORDERED: diphenhydrAMINE 50 MG/ML 1 ML VIAL IVP STA (11:55)
[2020-06-10 11:57] LABS: ALT 13 U/L (4-34); AST 17 U/L (14-36); African American GFR (CKD) >90 (>60 ml/min/1.73 sqM); Albumin 3.4 g/dL (3.5-5.0); Alkaline Phosphatase 51 U/L (38-126); Anion Gap 4 mmol/L; Blood Urea Nitrogen 12 mg/dL (7-17); Calcium 8.6 mg/dL (8.4-10.2); Carbon Dioxide 22 mmol/L (22-30); Chloride 111 mmol/L (98-107); Glucose 95 mg/dL (74-99); Magnesium 1.9 mg/dL (1.6-2.3); Non-African American GFR(CKD) >90 (>60 ml/min/1.73 sqM); Potassium 3.9 mmol/L (3.5-5.1); Sodium 137 mmol/L (137-145); Total Bilirubin 0.5 mg/dL (0.2-1.3); Total Protein 5.7 g/dL (6.3-8.2)
[2020-06-10 12:11] LABS: D-Dimer 0.29 mg/L FEU (<0.60); Prothrombin Time 10.2 sec (9.0-12.0)
[2020-06-10 12:15] LABS: Partial Thromboplastin Time 21.9 sec (22.0-30.0)
--- NOTE | 2020-06-10 14:12 | CT ---
EXAMINATION TYPE: CT angio chest DATE OF EXAM: 06/10/2020 COMPARISON: 10/04/15 HISTORY: Chest pain, aortic aneurysm, previous PE's CT DLP: 438.9 mGycm CONTRAST: CT chest with contrast and 3D reconstruction with MIP imaging is performed with IV Contrast, patient injected with 100 mL of Isovue 370. Contrast-enhanced CT of the chest was performed through the course of the pulmonary arteries with angie g and mediastinal window settings submitted. 3D reconstruction with MIP imaging was also performed. PULMONARY ARTERIES: The pulmonary arteries and their major tributaries are patent. I do not see trini dence for sizable filling defect to suggest pulmonary embolic process. LUNGS: The lungs are clear and free of infiltrate. No pulmonary nodule or mass is detected. Small pl eural effusions with compressive atelectasis. MEDIASTINUM: Ascending thoracic aorta measures 3.7 cm AP dimension which is within normal limits. The heart is not enlarged. No evidence for mediastinal mass. No mediastinal lymph nodes greater than 1 cm. HILAR STRUCTURES: No evidence for mass. No hilar lymph nodes greater than 1 cm. UPPER ABDOMEN: No significant abnormality is seen. IMPRESSION: 1. No evidence for Pulmonary embolism at this time.
[2020-06-10] MEDS ORDERED: KETOROLAC 30 MG/ML 1 ML VIAL IVP STA (14:21)
[2020-06-10 14:52] VITALS: BP 106/67; PULSE 60; RESP 16; TEMP 98.7
== END 2020-06-10 15:09 | disposition home or self-care (01) ==
LOC: EC 10:24
DX: R09.1 Pleurisy (principal); F41.9 Anxiety disorder, unspecified; M79.7 Fibromyalgia; M06.9 Rheumatoid arthritis, unspecified; Z79.899 Other long term (current) drug therapy; Z79.1 Long term (current) use of non-steroidal anti-inflammatories (NSAID); Z88.8 Allergy status to other drugs, medicaments and biological substances; Z86.711 Personal history of pulmonary embolism
CPT/HCPCS: 36415; 93005; 85379; 83880; 80053; 83690; 83735; 84484; 85025; 85610; 85730; 71046; 71275; 99285; 96374; 96375 ×3; J2270; J1200; J2405; J1885; Q9967

== ENCOUNTER 2020-10-06 08:43 | Observation (INO) | payer MEDICARE, OTHER ==
[2020-10-06] MEDS ORDERED: ASPIRIN 81 MG PO STA (08:50)
[2020-10-06] MEDS ORDERED: NITROGLYCERIN OINT 1 INCH/GM PACKET TOPICAL STA (08:50)
--- NOTE | 2020-10-06 09:00 | ED ---
Chest Pain HPI - General Chief Complaint: Chest Pain Stated Complaint: chest pain Time Seen by Provider: 10/06/20 08:50 Source: patient Mode of arrival: wheelchair Limitations: no limitations - History of Present Illness Initial Comments: 40yo female with history of thoracic aneursym, tricuspid regurgitation, chiari malformation presenting for chest pain since last night. pt states that she had sudden onset of substernal chest pain that was sharp, she states it is less sharp now but aching in nature. Denies hemoptysis, leg swelling, admits to radiation of pain into the arm. Patient admits to slight SOB. Hx of PE after a surgery. Patient denies vomiting, nausea, abdominal pain. Admits to fullness in the back but not pain. Denies URI symptoms, or additional complaints. Upon arrival patient appears well nontoxic. MD Complaint: chest pain - Related Data Home Medications Medication Instructions Recorded Confirmed Ibuprofen [Motrin] 800 mg PO Q8HR PRN 11/01/16 10/06/20 HYDROcodone/APAP 10-325MG [[place] 1 tab PO Q6HR PRN 06/10/20 10/06/20 10-325] Ondansetron Odt [Zofran Odt] 8 mg PO Q8HR PRN 06/10/20 10/06/20 methocarbamoL [Robaxin] 1,000 mg PO TID 06/10/20 10/06/20 ALPRAZolam [Xanax] 1 mg PO TID PRN 10/06/20 10/06/20 Butalb/APAP/Caff 50-325-40Mg 1 tab PO Q6H PRN 10/06/20 10/06/20 [Fioricet 50-325-40] Famotidine [Pepcid] 20 mg PO BID 10/06/20 10/06/20 Allergies Allergy/AdvReac Type Severity Reaction Status Date / Time metoclopramide HCl Allergy Hallucinati Verified 10/06/20 11:07 [From Reglan] ons Review of Systems ROS Statement: Those systems with pertinent positive or pertinent negative responses have been documented in the HPI. ROS Other: All systems not noted in ROS Statement are negative. Past Medical History Past Medical History: Fibromyalgia, Pulmonary Embolus (PE), Renal Disease Additional Past Medical History / Comment(s): kidney stones with stent, chairi malformation, tricuspid regurgitation, left ventricular hypertrophy, RA. 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, brain decompression 09/01/17 Past Anesthesia/Blood Transfusion Reactions: Postoperative Nausea & Vomiting (PONV) Past Psychological History: Anxiety Smoking Status: Former smoker Past Alcohol Use History: None Reported, Rare Past Drug Use History: Marijuana - Past Family History Father Additional Family Medical History / Comment(s): born with hole in heart, valve replacements, heart attacks, pacemaker General Exam - General Exam Comments Initial Comments: General: The patient is awake and alert, in no distress Eye: +3 mm pupils are equal, round and reactive to light, extra-ocular movements are intact. No nystagmus. There is normal conjunctiva bilaterally. No signs of icterus. Ears, nose, mouth and throat: There are moist mucous membranes and no oral lesions. Neck: The neck is supple, there is no tenderness or JVD. Cardiovascular: There is a regular rate and rhythm. No murmur, rub or gallop is appreciated. Respiratory: Lungs are clear to auscultation, respirations are non-labored, breath sounds are equal. No wheezes, stridor, rales, or rhonchi. Gastrointestinal: Soft, non-distended, non-tender abdomen without masses or organomegaly noted. There is no rebound or guarding present. Musculoskeletal: Normal ROM, no tenderness. Strength 5/5. Sensation intact. Radial and DP pulses equal bilaterally 2+. Neurological: A&O x 3. CN II-XII intact grossly, There are no obvious motor or sensory deficits. Coordination appears grossly intact. Speech is normal. Skin: Skin is warm and dry and no rashes or lesions are noted. Psychiatric: Cooperative, appropriate mood & affect, normal judgment. Limitations: no limitations Course Vital Signs 10/06/20 10/06/20 10/06/20 08:46 09:07 09:32 Temperature 98 F 97.9 F Pulse Rate 68 52 L Pulse Rate [ 63 [place] ] Respiratory 16 14 Rate Blood Pressure 124/79 124/83 O2 Sat by Pulse 100 100 Oximetry 10/06/20 10:13 Temperature 98.0 F Pulse Rate 58 L Pulse Rate [ [place]ower ] Respiratory 16 Rate Blood Pressure 129/81 O2 Sat by Pulse 100 Oximetry Chest Pain MDM - MDM BP stable. HR stable. Pt does not appears int distress. No pain after morphine. CTA no obvious dissection, BP within acceptable limits. Troponin (-). EKG no acute changes. Patient pulses equal. Patient does not appears in distress pain gone on reevaluation. pt will be admitted for serial troponins. Patient did request her home medications to be ordered--they do contain a lot of controlled substances. is agreeable to care plan. Ventricular rate 63 bpm, OK interval 134 ms, QR uatsdin 80 ms, QT/QTC 428/437. This is normal sinus no ST elevation or depression is appreciated. Normal R-wave progression. Disposition Clinical Impression: Chest pain Disposition: ADMITTED IP TO THIS HOSP Condition: Stable Is patient prescribed a controlled substance at d/c from ED?: No Time of Disposition: 10: Decision to Admit Reason: Admit from EC Decision Date: 10/06/20 Decision Time: 10:23
[2020-10-06 09:21] LABS: ALT 11 U/L (4-34); AST 20 U/L (14-36); African American GFR (CKD) >90 (>60 ml/min/1.73 sqM); Alkaline Phosphatase 56 U/L (38-126); Anion Gap 5 mmol/L; Blood Urea Nitrogen 13 mg/dL (7-17); Carbon Dioxide 23 mmol/L (22-30); Chloride 110 mmol/L (98-107); Glucose 103 mg/dL (74-99); Lipase 89 U/L (23-300); Magnesium 2.2 mg/dL (1.6-2.3); Non-African American GFR(CKD) >90 (>60 ml/min/1.73 sqM); Potassium 4.2 mmol/L (3.5-5.1); Sodium 138 mmol/L (137-145); Total Bilirubin 0.4 mg/dL (0.2-1.3); Total Protein 6.6 g/dL (6.3-8.2)
[2020-10-06] MEDS: MORPHINE SULFATE 2 MG/ML SYRINGE IVP PRN ×3 (09:25→17:46)
--- NOTE | 2020-10-06 09:32 | XR ---
EXAMINATION TYPE: XR chest 2V DATE OF EXAM: 10/06/2020 COMPARISON: 06/10/2020 TECHNIQUE: PA and lateral views submitted. HISTORY: Chest pain FINDINGS: The lungs are clear and there is no pneumothorax, pleural effusion, or focal pneumonia. IMPRESSION: 1. No acute process.
[2020-10-06] MEDS ORDERED: FAMOTIDINE 20 MG/2 ML VIAL IV STA (09:42)
[2020-10-06] MEDS ORDERED: methylPREDNISolone SOD SUCCI 125 MG/2 ML VIAL IV STA (09:42)
[2020-10-06] MEDS ORDERED: diphenhydrAMINE 50 MG/ML 1 ML VIAL IVP STA (09:42)
--- NOTE | 2020-10-06 09:50 | CT ---
EXAMINATION TYPE: CT angio thor/abd pel aorta DATE OF EXAM: 10/06/2020 COMPARISON: 06/10/2020 HISTORY: severe chest pain, known aneurysm CT DLP: 1937.4 mGycm. Automated Exposure Control for Dose Reduction was Utilized. CONTRAST: CT scan of the thorax, abdomen and pelvis is performed with IV Contrast, patient injected with 100 mL of Isovue 370. FINDINGS: LUNGS: The lungs are grossly clear, there is no concerning parenchymal mass or nodule identified. T here is no pleural effusion or pneumothorax seen. The tracheobronchial tree is patent. MEDIASTINUM: There are no greater than 1 cm hilar or mediastinal lymph nodes. Tiny pericardial effusi on noted. Assessment aortic root is limited due to motion artifact. Maximal dimension of the adjacen t aorta is 3.5 cm and stable from prior exam. No evidence of aortic dissection within the visualized portions of the aorta. Visualized abdominal aorta of normal course and caliber. OTHER: No additional significant abnormality is seen. LIVER/GB: Postcholecystectomy changes noted.. PANCREAS: No significant abnormality is seen. SPLEEN: No significant abnormality is seen. ADRENALS: No significant abnormality is seen. KIDNEYS: No significant abnormality is seen. BOWEL: Bowel gas pattern nonspecific. Lack of contrast limits the exam. Appendix not seen with certai nty. LYMPH NODES: No greater than 1cm abdominal or pelvic lymph nodes are appreciated. OSSEOUS STRUCTURES: No significant abnormality is seen. OTHER: No significant additional abnormality is seen. IMPRESSION: 1. Aortic measurement within the ascending aorta measures 3.5 cm in maximal dimension. Assessment for dissection in the proximal aorta are limited due to artifact. Remaining aorta demonstrates no diagno stic evidence of dissection 2. Tiny pericardial effusion. 3. Postcholecystectomy changes.
[2020-10-06 09:52] LABS: Basophils # (A) 0.1 k/uL (0-0.2); Basophils % (A) 1 %; Eosinophils # (A) 0.1 k/uL (0-0.7); Eosinophils % (A) 1 %; Hypochromasia Slight; Lymphocytes # (A) 1.5 k/uL (1.0-4.8); Lymphocytes % (A) 21 %; MCH 24.4 pg (25.0-35.0); MCHC 31.3 g/dL (31.0-37.0); MCV 77.8 fL (80.0-100.0); Mean Platelet Volume 7.5; Microcytosis Slight; Monocytes # (A) 0.3 k/uL (0-1.0); Monocytes % (A) 3 %; Neutrophils # (A) 5.4 k/uL (1.3-7.7); Neutrophils % (A) 74 %; Platelet Count 318 k/uL (150-450); RBC 4.12 m/uL (3.80-5.40); RDW 15.6 % (11.5-15.5); WBC 7.3 k/uL (3.8-10.6)
[2020-10-06 10:06] LABS: INR 0.9 (<1.2); Partial Thromboplastin Time 22.1 sec (22.0-30.0); Prothrombin Time 9.9 sec (9.0-12.0)
[2020-10-06] MEDS ORDERED: NITROGLYCERIN SL TABS 0.4 MG TAB SUBLINGUAL PRN (10:19)
[2020-10-06] MEDS ORDERED: ONDANSETRON ODT 8 MG TAB.RAPDIS PO PRN (11:28)
[2020-10-06] MEDS: HYDROcodone/APAP 10-325MG 1 EACH TAB PO PRN ×2 (14:41→21:10)
[2020-10-06] MEDS: FAMOTIDINE 20 MG TAB PO SCH ×2 (17:15→21:11)
[2020-10-06] MEDS ORDERED: BUTALB/APAP/CAFF 50-325-40MG TAB PO PRN (19:55)
--- NOTE | 2020-10-06 20:13 | P.HPIM ---
History of Present Illness H&P Date: 10/06/20 Chief Complaint: Chest pain Patient is a 40-year-old female with a known history of migraine headaches, fibromyalgia, history of pulmonary embolism, surgery for she had a malformation in 2015 and brain decompression, renal stones with ureteral stent and anxiety and previous history of smoking presents to ER with the complaints of chest pain. Patient states that since morning she has been having substernal chest pain sharp pain without any radiation to the arm. Patient is admitted in guarded condition to mild shortness of breath. No nausea vomiting or abdominal pain or diarrhea. No recent illnesses. No cough or sputum production. No fever or chills. Patient states that she she was told that she has aortic aneurysm at [address] thoracic aorta showed aortic management within the ascending aorta measures 3.5 cm in maximal dimension. Tiny pericardial effusion. Post cholecystectomy changes. Chest x-ray showed no acute process EKG showed normal sinus rhythm Laboratory data showed WBC 7.3, hemoglobin 10.0 and MCV 77.8 platelets 318 COVID-19 PCR negative Troponin x3 - NT proBNP is 85 Review of Systems Constitutional: Patient denies any fever or chills . No generalized weakness or weight loss. Abdomen: Patient denied nausea vomiting and diarrhea and abdominal pain. Cardiovascular: Patient does have chest pain associate with mild shortness of breath. No palpitations no leg swelling. Respiratory: patient denied any cough or sputum production. No shortness of breath Neurologic: Patient denied any numbness or tingling headache. Musculoskeletal: Patient denies any complaints of joint swelling or deformity. Skin: Negative Psychiatric: Negative Endocrine: No heat or cold intolerance. No recent weight gain. Genitourinary: No dysuria or hematuria. All other 14 point ROS negative except the above Past Medical History Past Medical History: Fibromyalgia, Pulmonary Embolus (PE), Renal Disease Additional Past Medical History / Comment(s): kidney stones with stent, chairi malformation, tricuspid regurgitation, left ventricular hypertrophy, RA. 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, brain decompression 09/01/17 Past Anesthesia/Blood Transfusion Reactions: Postoperative Nausea & Vomiting (PONV) Past Psychological History: Anxiety Smoking Status: Former smoker Past Alcohol Use History: None Reported, Rare Past Drug Use History: Marijuana - Past Family History Father Additional Family Medical History / Comment(s): born with hole in heart, valve replacements, heart attacks, pacemaker Medications and Allergies Home Medications Medication Instructions Recorded Confirmed Type Ibuprofen [Motrin] 800 mg PO Q8HR PRN 11/01/16 10/06/20 History HYDROcodone/APAP 10-325MG [[place] 1 tab PO Q6HR PRN 06/10/20 10/06/20 History 10-325] Ondansetron Odt [Zofran Odt] 8 mg PO Q8HR PRN 06/10/20 10/06/20 History methocarbamoL [Robaxin] 1,000 mg PO TID 06/10/20 10/06/20 History ALPRAZolam [Xanax] 1 mg PO TID PRN 10/06/20 10/06/20 History Butalb/APAP/Caff 50-325-40Mg 1 tab PO Q6H PRN 10/06/20 10/06/20 History [Fioricet 50-325-40] Famotidine [Pepcid] 20 mg PO BID 10/06/20 10/06/20 History Allergies Allergy/AdvReac Type Severity Reaction Status Date / Time metoclopramide HCl Allergy Hallucinati Verified 10/06/20 11:07 [From Reglan] ons Physical Exam Vitals: Vital Signs Temp Pulse Pulse Resp BP Pulse Ox 10/06/20 19:47 97.8 F 59 L 16 116/59 96 10/06/20 17:41 61 18 105/56 96 10/06/20 14:01 67 16 111/63 95 10/06/20 11:33 97.8 F 66 18 114/69 100 10/06/20 10:13 98.0 F 58 L 16 129/81 100 10/06/20 09:32 97.9 F 52 L 14 124/83 100 10/06/20 09:07 63 10/06/20 08:46 98 F 68 16 124/79 100 Intake and Output 10/06/20 10/06/20 10/06/20 06:59 14:59 22:59 Other: Weight 104.326 kg PHYSICAL EXAMINATION: Patient is lying in the bed comfortably, no acute distress, awake alert and oriented.. HEENT: Normocephalic. Neck is supple. Pupils reactive. Nostrils clear. Oral cavity is moist. Ears reveal no drainage. Neck reveals no JVD, carotid bruits, or thyromegaly. CHEST EXAMINATION: Trachea is central. Symmetrical expansion. Lung power clear to auscultation and percussion. CARDIAC: Normal S1, S2 with no gallops. No murmurs ABDOMEN: Soft. Bowel sounds normal. No organomegaly. No abdominal bruits. Extremities: reveal no edema. No clubbing or cyanosis Neurologically awake, alert, oriented x3 with well-coordinated movements. No focal deficits noted Skin: No rash or skin lesions. Psychiatric: Coperative. Nonsuicidal. anxious Musculoskeletal: No joint swelling or deformity. Normal range of motion. Results CBC & Chem 7: 10/06/20 09:03 10/06/20 09:03 Labs: Abnormal Lab Results - Last 24 Hours (Table) 10/06/20 10/06/20 Range/Units 09:03 09:03 Hgb 10.0 L (11.4-16.0) gm/dL Hct 32.0 L (34.0-46.0) % MCV 77.8 L (80.0-100.0) fL MCH 24.4 L (25.0-35.0) pg RDW 15.6 H (11.5-15.5) % Chloride 110 H (98-107) mmol/L Glucose 103 H (74-99) mg/dL Thrombosis Risk Factor Assmnt - DVT/VTE Prophylaxis DVT/VTE Prophylaxis: Pharmacologic Prophylaxis ordered Assessment and Plan Assessment: Atypical chest pain. Ruled out ACS and rule out aortic dissection. -Ascending aortic aneurysm 3.5 cm in size Fibromyalgia Migraine headaches History of Alyssa malformation and history of cerebral decompression surgery Anxiety Previous history of smoking History of marijuana use History of renal stones and stent placement DVT prophylaxis with heparin subcu and GI prophylaxis with Pepcid twice daily. Plan: Patient will be continued on telemetry monitoring. Continue with pain management and serial troponin and EKG negative for acute AL. Patient will need to follow-up with CT surgery due to aortic aneurysm. Cardiology was consulted. Further recommendations based on the clinical course.
[2020-10-07] MEDS: HEPARIN SODIUM,PORCINE 5,000 UNIT/ML 1 ML VIAL SQ SCH ×4 (00:31→23:52)
[2020-10-07] MEDS: MORPHINE SULFATE 2 MG/ML SYRINGE IVP PRN ×3 (04:35→20:25)
[2020-10-07] MEDS: FAMOTIDINE 20 MG TAB PO SCH ×2 (08:20→20:26)
[2020-10-07] MEDS ORDERED: ASPIRIN 325 MG TAB PO SCH (09:00)
--- NOTE | 2020-10-07 09:00 | P.CRDCN ---
History of Present Illness Consult date: 10/07/20 Consult reason: chest pain Chief complaint: Chest pain History of present illness: This is a pleasant 40 year old female with history of fibromyalgia, pulmonary embolism in the past, chiari malformation in 2014 with a brain decompression, renal stones with prior ureteral stent, prior history of smoking, patient also has a history of a thoracic aortic aneurysm which is being followed by an outside cardiothoracic surgeon. She presents to the hospital on this admission with symptoms of chest discomfort, patient states that she developed chest pain midsternal, which she described as a crushing sharp chest pain which brought her to her knees. She states that if she moves her body in a certain way she can reproduce similar symptoms. Patient also states that she recently underwent a stress test and an echocardiogram at [facility] within the past year. Her chest x-ray on presentation here did not reveal any acute process. CT angiogram of the thoracic, abdominal, and pelvis, revealed aortic measurement within the ascending aorta of 3.5 cm at its maximum dimension, assessment for dissection in the proximal aorta limited due to artifact. Remaining aorta demonstrates no diagnostic evidence of dissection. Tiny pericardial effusion. EKG shows a normal sinus rhythm with no acute changes. Blood pressure 100/60, heart rate in the 60s, 95% on room air. White blood cell count 7.3, hemoglobin 10, platelet count 318. Sodium 138, potassium 4.2, BUN 13, creatinine 0.6. Troponins are negative 3. Dias virus not detected. At the time of my examination this morning, patient is overall chest pain-free, if she turns her body back and forth, she can reproduce some chest pain. Past Medical History Past Medical History: Fibromyalgia, Pulmonary Embolus (PE), Renal Disease Additional Past Medical History / Comment(s): kidney stones with stent, chairi malformation, tricuspid regurgitation, left ventricular hypertrophy, RA. e nlarged aorta History of Any Multi-Drug Resistant Organisms: None Reported Past Surgical History: Section, Cholecystectomy, Tubal Ligation Additional Past Surgical History / Comment(s): renal stent, surgery for chairi malformation 05/24/2015 and 2017, brain decompression 09/01/17 Past Anesthesia/Blood Transfusion Reactions: Postoperative Nausea & Vomiting (PONV) Past Psychological History: Anxiety Smoking Status: Former smoker Past Alcohol Use History: None Reported, Rare Past Drug Use History: Marijuana - Past Family History Father Additional Family Medical History / Comment(s): born with hole in heart, valve replacements, heart attacks, pacemaker Medications and Allergies Home Medications Medication Instructions Recorded Confirmed Type Ibuprofen [Motrin] 800 mg PO Q8HR PRN 11/01/16 10/06/20 History HYDROcodone/APAP 10-325MG [[place] 1 tab PO Q6HR PRN 06/10/20 10/06/20 History 10-325] Ondansetron Odt [Zofran Odt] 8 mg PO Q8HR PRN 06/10/20 10/06/20 History methocarbamoL [Robaxin] 1,000 mg PO TID 06/10/20 10/06/20 History ALPRAZolam [Xanax] 1 mg PO TID PRN 10/06/20 10/06/20 History Butalb/APAP/Caff 50-325-40Mg 1 tab PO Q6H PRN 10/06/20 10/06/20 History [Fioricet 50-325-40] Famotidine [Pepcid] 20 mg PO BID 10/06/20 10/06/20 History Allergies Allergy/AdvReac Type Severity Reaction Status Date / Time metoclopramide HCl Allergy Hallucinati Verified 10/06/20 11:07 [From Reglan] ons Physical Exam Vitals: Vital Signs Temp Pulse Pulse Pulse Resp BP BP 10/07/20 03:45 97.9 F 66 18 100/65 10/06/20 21:30 98.1 F 68 18 109/68 10/06/20 19:47 97.8 F 59 L 16 116/59 10/06/20 17:41 61 18 105/56 10/06/20 14:01 67 16 111/63 10/06/20 11:33 97.8 F 66 18 114/69 10/06/20 11:27 98.1 F 68 18 109/68 10/06/20 10:13 98.0 F 58 L 16 129/81 10/06/20 09:32 97.9 F 52 L 14 124/83 10/06/20 09:07 63 Pulse Ox 10/07/20 03:45 95 10/06/20 21:30 96 10/06/20 19:47 96 10/06/20 17:41 96 10/06/20 14:01 95 10/06/20 11:33 100 10/06/20 11:27 96 10/06/20 10:13 100 10/06/20 09:32 100 10/06/20 09:07 Intake and Output 10/06/20 10/07/20 10/07/20 22:59 06:59 14:59 Other: Voiding Method Toilet Toilet # Voids 2 PHYSICAL EXAMINATION: GENERAL: 40-year-old female in no acute distress at the time of my examination HEENT: Head is atraumatic, normocephalic. Pupils equal, round. Sclera anicteric. Conjunctiva are clear. Mucous membranes of the mouth are moist. Neck is supple. There is no elevated jugular venous pressure. No carotid bruit is heard. HEART EXAMINATION: Heart S1, S2 normal. No murmur or gallop heard. CHEST EXAMINATION: Lungs are clear to auscultation and precussion. No chest wall tenderness is noted on palpation or with deep breathing. ABDOMEN: Soft, nontender. Bowel sounds are heard. No organomegaly noted. EXTREMITIES: 2+ peripheral pulses with no evidence of peripheral edema and no calf tenderness noted. NEUROLOGIC patient is awake, alert and oriented 3 . Results 10/06/20 09:03 10/06/20 09:03 Cardiac Enzymes 10/06/20 10/06/20 10/06/20 Range/Units 09:03 09:03 12:13 AST 20 (14-36) U/L Troponin I <0.012 <0.012 (0.000-0.034) ng/mL 10/06/20 Range/Units 14:33 AST (14-36) U/L Troponin I <0.012 (0.000-0.034) ng/mL Coagulation 10/06/20 Range/Units 09:03 PT 9.9 (9.0-12.0) sec APTT 22.1 (22.0-30.0) sec CBC 10/06/20 Range/Units 09:03 WBC 7.3 (3.8-10.6) k/uL RBC 4.12 (3.80-5.40) m/uL Hgb 10.0 L (11.4-16.0) gm/dL Hct 32.0 L (34.0-46.0) % Plt Count 318 (150-450) k/uL Comprehensive Metabolic Panel 10/06/20 Range/Units 09:03 Sodium 138 (137-145) mmol/L Potassium 4.2 (3.5-5.1) mmol/L Chloride 110 H (98-107) mmol/L Carbon Dioxide 23 (22-30) mmol/L BUN 13 (7-17) mg/dL Creatinine 0.66 (0.52-1.04) mg/dL Glucose 103 H (74-99) mg/dL Calcium 9.0 (8.4-10.2) mg/dL AST 20 (14-36) U/L ALT 11 (4-34) U/L Alkaline Phosphatase 56 (38-126) U/L Total Protein 6.6 (6.3-8.2) g/dL Albumin 4.0 (3.5-5.0) g/dL Current Medications Generic Name Dose Route Start Last Admin Trade Name Freq PRN Reason Stop Dose Admin Acetaminophen/Butalbital/Caffeine 1 each 10/06/20 19:55 Butalb/Apap/Caff 50-325-40mg Tab PO Q6H PRN Migraine Headache Hydrocodone Bitart/Acetaminophen 1 each 10/06/20 11:28 10/06/20 21:10 Hydrocodone/Apap 10-325mg 1 Each Tab PO 1 each Q6HR PRN Administration Pain Aspirin 325 mg 10/07/20 09:00 10/07/20 08:20 Aspirin 325 Mg Tab PO 325 mg DAILY KELSIE Administration Famotidine 20 mg 10/06/20 11:30 10/07/20 08:20 Famotidine 20 Mg Tab PO 20 mg BID KELSIE Administration Heparin Sodium (Porcine) 5,000 unit 10/07/20 00:00 10/07/20 08:20 Heparin Sodium,Porcine 5,000 Unit/Ml 1 Ml Vial SQ 5,000 unit Q8HR KELSIE Administration Morphine Sulfate 2 mg 10/06/20 08:55 10/07/20 04:35 Morphine Sulfate 2 Mg/Ml Syringe IVP 2 mg Q4H PRN Administration Pain/Discomfort Nitroglycerin 0.4 mg 10/06/20 10:19 Nitroglycerin Sl Tabs 0.4 Mg Tab SUBLINGUAL Q5M PRN Chest Pain Ondansetron HCl 8 mg 10/06/20 11:28 Ondansetron Odt 8 Mg Tab.Rapdis PO Q8HR PRN Nausea Intake and Output 10/06/20 10/07/20 10/07/20 22:59 06:59 14:59 Other: Voiding Method Toilet Toilet # Voids 2 10/06/20 09:03 10/06/20 09:03 EKG Interpretations (text) EKG shows normal sinus rhythm with no acute changes. Assessment and Plan Plan: Assessment and plan #1 atypical chest pain, troponins negative 3, EKG shows normal sinus rhythm with no acute changes. #2 prior history of smoking #3 fibromyalgia #4 history of migraines #5 ascending aortic aneurysm, 3.5 cm, being monitored as an outpatient #6 history of chiari malformation with prior brain decompression #7 history of renal stones with ureteral stent Plan According to the patient, she had an echocardiogram with Doppler study and stress test performed within this past year at [facility], we will get results of those. We will repeat an echocardiogram with Doppler study here, if her stress test has been quite recent we will not repeat one, if it has been a year or greater since her stress test, we will consider repeating a stress test at this time. We will decrease her aspirin 81 mg daily. Discontinue Nitropaste. Further recommendations to follow. DNP note has been reviewed, I agree with a documented findings and plan of care. Patient was seen and examined.
[2020-10-07 10:00] LABS: African American GFR (CKD) >90 (>60 ml/min/1.73 sqM); Anion Gap 2 mmol/L; Blood Urea Nitrogen 18 mg/dL (7-17); Calcium 8.2 mg/dL (8.4-10.2); Carbon Dioxide 25 mmol/L (22-30); Chloride 113 mmol/L (98-107); Glucose 90 mg/dL (74-99); Non-African American GFR(CKD) >90 (>60 ml/min/1.73 sqM); Potassium 3.7 mmol/L (3.5-5.1); Sodium 140 mmol/L (137-145)
[2020-10-07 10:46] LABS: Cholesterol 152 mg/dL (<200); HDL Cholesterol 45 mg/dL (40-60); LDL Cholesterol,Calculated 96 mg/dL (0-99); Triglycerides 56 mg/dL (<150)
[2020-10-07] MEDS: HYDROcodone/APAP 10-325MG 1 EACH TAB PO PRN (12:13)
--- NOTE | 2020-10-07 13:01 | ECHOF ---
Referral Reason:valvular disease, chest pain MEASUREMENTS -------- HEIGHT: 177.8 cm WEIGHT: 104.3 kg BP: 100/65 IVSd: 1.1 cm (0.6 - 1.1) LVIDd: 4.4 cm (3.9 - 5.3) LVPWd: 1.3 cm (0.6 - 1.1) EDV(Teich): 85 ml IVSs: 1.3 cm LVIDs: 3.2 cm LVPWs: 2.2 cm %IVS Thck: 14 % ESV(Teich): 41 ml EF(Teich): 53 % %FS: 27 % SV(Teich): 45 ml RVIDd: 3.5 cm (< 3.3) LALs A4C: 4.9 cm LAAs A4C: 18.5 cm LAESV A-L A4C: 58 ml LAESV MOD A4C: 56 ml LALs A2C: 5.4 cm LAAs A2C: 20.9 cm LAESV A-L A2C: 68 ml LAESV MOD A2C: 66 ml LAESV(A-L): 66 ml LAESV Index (A-L): 29.77 ml/m Ao Diam: 2.8 cm (2.0 - 3.7) AV Cusp: 1.9 cm (1.5 - 2.6) EPSS: 0.5 cm MV E Kevin: 0.84 m/s MV DecT: 197 ms MV Dec Dauphin: 4.3 m/s MV A Kevin: 0.74 m/s MV E/A Ratio: 1.13 MV PHT: 57 ms LVOT Vmax: 0.90 m/s LVOT maxP.22 mmHg AV Vmax: 1.14 m/s AV maxP.17 mmHg TR Vmax: 2.97 m/s TR maxP.31 mmHg RAP: 5.00 mmHg RVSP: 40.31 mmHg MV EF SLOPE: 101.00 mm/s (70 - 150) MV EXCURSION: 19.60 mm (> 18.000) FINDINGS -------- Sinus rhythm. This was a technically adequate study. The left ventricular size is normal. There is mild concentric left ventricular hypertrophy. Overa left ventricular systolic function is normal with, an EF between 55 - 60 %. The diastolic fillin g pattern is normal for the age of the patient {E/E'}. The right ventricle is mildly enlarged. LA is midly dilated 29-33ml/m2. The right atrial size is normal. Interatrial and interventricular septum intact. The aortic valve is trileaflet and appears structurally normal. There is no evidence of aortic regu rgitation. There is no evidence of aortic stenosis. Acho density was seen on the non-coronary cus t of aortic valve. REJI is advised for better clarification Mild mitral regurgitation is present. [id number] tricuspid regurgitation present. There is mild to moderate pulmonary hypertension. The right ventricular systolic pressure, as measured by Doppler, is 40.31mmHg. There is no pulmonic regurgitation present. The ascending aorta is dilated measuring up to {3.5 cm}. Normal inferior vena cava with normal inspiratory collapse consistent with estimated right atrial pre ssure of 5 mmHg. There is no pericardial effusion. CONCLUSIONS -------- 1. The left ventricular size is normal. 2. There is mild concentric left ventricular hypertrophy. 3. Overall left ventricular systolic function is normal with, an EF between 55 - 60 %. 4. The diastolic filling pattern is normal for the age of the patient {E/E'} 5. The right ventricle is mildly enlarged. 6. LA is midly dilated 29-33ml/m2. 7. Acho density was seen on the non-coronary cust of aortic valve. REJI is advised for better clarific ation 8. Mild mitral regurgitation is present. 9. [id number] tricuspid regurgitation present. 10. There is mild to moderate pulmonary hypertension. 11. The right ventricular systolic pressure, as measured by Doppler, is 40.31mmHg. 12. The ascending aorta is dilated measuring up to {Ao Asc Diam}. RADIOPHONE OPERATOR: Azul Diane RDCS
--- NOTE | 2020-10-07 14:21 | ECHOS ---
STRESS ECHOCARDIOGRAM LUMASON: - Vial INDICATIONS: Chest pain. MEDICATIONS: BASELINE HEART RATE: 56 BASELINE BLOOD PRESSURE: 104/54 MAXIMUM HEART RATE: 166 MAXIMUM BLOOD PRESSURE: 154/54 85% MPHR: 154 100% MPHR: 181 METS: 8.7 MAXIMUM STAGE REACHED: 3 TOTAL EXERCISE TIME: 7:15 CLINICAL INFORMATION: STRESS DATA: Heart rate 56, pressure is 104/54 mmHg. Baseline EKG showed sinus mechanism. The patient exercised on the treadmill according to Bryan protocol for a total of 7 minutes and 15 seconds and achieved 8.7 METS. Max heart rate was 166 which is about 91% of maximum predicted heart rate. Maximum blood pressure was 154/54 mmHg. Clinically, the patient did not have any symptoms of chest pain or chest discomfort. The EKG did not show any significant ST or T-wave abnormalities concerning for ischemia. On echocardiogram images from parasternal long axis view, parasternal short axis view, apical 4 chamber and apical 2 chamber were obtained as the baseline images, at the peak of the heart rate as well as on recovery and the echocardiogram images showed good augmentation in the left ventricular systolic function. CONCLUSION: 1. Good exercise tolerance. 2. Normal EKG in response to exercise. 3. Normal echocardiogram in response to exercise. MMODL / IJN: [id number] /
--- NOTE | 2020-10-07 14:45 | CT ---
EXAMINATION TYPE: CT brain wo con DATE OF EXAM: 10/07/2020 COMPARISON: 11/02/2016 HISTORY: 40-year-old female headache. History of Chiari malformation TECHNIQUE: Examination was done in axial plane without intravenous contrast. Coronal and sagittal r econstructions performed. CT DLP: 1098.4 mGycm Automated exposure control for dose reduction was used. FINDINGS: There is no evidence of acute intracranial hemorrhage, acute ischemic changes, mass, mass-effect, or extra-axial fluid collection. There is no effacement of cerebral sulci or basal subarachnoid cister ns. There is no hydrocephalus. There is no midline shift. Alexander-white matter distinction is preserv ed. Redemonstrated postsurgical change of occipital and suboccipital decompression. Paranasal sinuses and mastoid air cells are pneumatized. Orbits and globes are intact. IMPRESSION: Prior decompression surgery for Chiari I malformation. No acute intracranial abnormality seen.
[2020-10-07] MEDS ORDERED: methocarbamoL 500 MG TAB PO PRN (14:57)
[2020-10-07] MEDS ORDERED: diphenhydrAMINE 50 MG/ML 1 ML VIAL IVP STA (14:59)
[2020-10-07] MEDS ORDERED: PROCHLORPERAZINE 5 MG TAB PO STA (14:59)
[2020-10-07] MEDS ORDERED: MAGNESIUM SULFATE-D5W PMX 1 GM in DEXTROSE/WATER 1 100ML.BAG IVPB ONE (15:15)
[2020-10-07] MEDS: IBUPROFEN 800 MG TAB PO PRN ×2 (15:23→23:52)
--- NOTE | 2020-10-07 16:00 | P.CNNES ---
History of Present Illness Consult date: 10/07/20 Requesting physician: Dick E Sheet Reason for Consult: headache with history of chiari malformation History of Present Illness: This is a 40-year-old woman with history of Chiari malformation type I diagnosed in the 2015 status post decompression 2015 as well as 2017, chronic daily migraine, thoracic aneurysm, tricuspid regurgitation, pulmonary embolism that presented to the emergency department on 10/06/2020 for chest pain. Neurology is consulted for headache. According to the patient the she has a history of mi graine since has a daily headache lasting for sometimes 1-3 days. She knows that the headache that she had that currently was on 10/04/2020 after she recieved nitroprusside. She said the headaches are bilateral frontal and when she had it on presentation was 9/10, she had nausea, she did have photophobia and phonophobia. That there is no radiation to the headache. Denies any visual disturbance with the headache, focal weakness or paresthesia. Currently her headache is 7/10 after receiving pain medications. She said that she sees an neurologist at [facility] (Dr. Mendez) were the management of her migraine as well as the tremor inflammation as well as she sees a ne urosurgeon over at [facility] for her acute area a malformation. Guarding the management of migraines and she said that usually controlled with [place] 10 one tablet twice a day, Motrin 800 mg 1 tablet twice a day and the Robaxin 500 mg 2 tablet twice a day. She said that Aimovig is the controlled her migraine but the last time she had it was about 4 month ago because of insurance issues. She said that her neurologist wanted her to be to receive Botox down the line. Patient stated that she tried that Topamax 200 mg 1 tablet twice a day but she stopped 6 month ago because it was making her confused and sleepy at. She tried the amitriptyline as well as that did not help in the past regarding the management of migraine. She is on a triptan 2.5 mg as needed and she takes 1-2 tablets a week. Workup in the hospital consisted of: Initial vital signs his blood pressure of 124/79, heart rate of 68, respiratory of 16, temperature of 98.7 Fahrenheit oral and pulse ox of 100% at room air. EKG is reported as normal sinus rhythm. Normal EKG. Review of Systems Review of system: The 12 point system was reviewed and apparent positive and negative per HPI. Past Medical History Past Medical History: Fibromyalgia, Pulmonary Embolus (PE), Renal Disease Additional Past Medical History / Comment(s): kidney stones with stent, chairi malformation, tricuspid regurgitation, left ventricular hypertrophy, RA. 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, brain decompression 09/01/17 Past Anesthesia/Blood Transfusion Reactions: Postoperative Nausea & Vomiting (PONV) Past Psychological History: Anxiety Smoking Status: Former smoker Past Alcohol Use History: None Reported, Rare Past Drug Use History: Marijuana - Past Family History Father Additional Family Medical History / Comment(s): born with hole in heart, valve replacements, heart attacks, pacemaker Medications and Allergies Home Medications Medication Instructions Recorded Confirmed Type Ibuprofen [Motrin] 800 mg PO Q8HR PRN 11/01/16 10/06/20 History HYDROcodone/APAP 10-325MG [[place] 1 tab PO Q6HR PRN 06/10/20 10/06/20 History 10-325] Ondansetron Odt [Zofran Odt] 8 mg PO Q8HR PRN 06/10/20 10/06/20 History methocarbamoL [Robaxin] 1,000 mg PO TID 06/10/20 10/06/20 History ALPRAZolam [Xanax] 1 mg PO TID PRN 10/06/20 10/06/20 History Butalb/APAP/Caff 50-325-40Mg 1 tab PO Q6H PRN 10/06/20 10/06/20 History [Fioricet 50-325-40] Famotidine [Pepcid] 20 mg PO BID 10/06/20 10/06/20 History Allergies Allergy/AdvReac Type Severity Reaction Status Date / Time metoclopramide HCl Allergy Hallucinati Verified 10/06/20 11:07 [From [facility]] ons Physical Examination - Vital Signs Vital Signs: Vital Signs Temp Pulse Pulse Resp BP BP Pulse Ox 10/07/20 09:00 97.6 F 63 16 82/35 96 10/07/20 03:45 97.9 F 66 18 100/65 95 10/06/20 21:30 98.1 F 68 18 109/68 96 10/06/20 19:47 97.8 F 59 L 16 116/59 96 10/06/20 17:41 61 18 105/56 96 10/06/20 14:01 67 16 111/63 95 Intake and Output 10/06/20 10/07/20 10/07/20 22:59 06:59 14:59 Other: Voiding Method Toilet Toilet # Voids 2 2 Weight 104.33 kg GENERAL: The patient is lying in bed and is in mild to moderate acute distress. CHEST: The heart rate is regular rate rhythm. No murmurs to auscultation. No carotid bruit bilaterally. LUNG: Clear to auscultation bilaterally no wheezing noted throughout. Not labored breathing. ABDOMEN/GI: Bowel sounds present in all 4 quadrants. No tenderness to palpation throughout. NEUROLOGICAL: Higher mental function: The patient is awake, alert, oriented to self, place and time. Patient is following commands. No aphasia and no neglect. Cranial nerves: The pupils are round, equal and reactive to light and accommodation. Visual power are full to confrontation throughout. Extraocular movement is intact no nystagmus is noted. Facial sensation is normal to touch throughout. The facial strength is normal throughout. Hearing is normal bilaterally to hand rub. Tongue is midline and moved [id number] without any difficulty. No dysarthria is noted. Shoulder shrug is normal bilaterally. Motor: The strength is 5 over 5 throughout. Normal tone and bulk. Cerebellum: Normal finger to nose heel to chin bilaterally. Sensation: Sensation is normal to touch throughout. Reflexes (right/left): 2+ Plantars are downgoing bilaterally. Results Regulation study: PT of 9.9, INR 0.9, PTT of 22.1. 2-D echo is reported as mild concentric left ventricular hypertrophy. Ejection fraction of 55-60%. Left atrium is mildly dilated. Acho density was seen on the noncoronary cost of the aortic valve. REJI is advised for better clarification. - Laboratory Findings CBC and BMP: 10/06/20 09:03 10/07/20 09:17 Abnormal Lab Findings: Abnormal Labs 11/22/20 11/22/20 11/23/20 09:03 09:03 09:17 Hgb 10.0 L Hct 32.0 L MCV 77.8 L MCH 24.4 L RDW 15.6 H Chloride 110 H 113 H BUN 18 H Glucose 103 H Calcium 8.2 L Assessment and Plan Assessment: his is a 40-year-old woman with history of Chiari malformation type I s/p decompression 2014 and 2016, Chronic daily migraine thoracic aneurysm, tricuspid regurgitation, pulmonary embolism that presented to the emergency department on 10/06/2020 for chest pain. She is currently having a headache. Chronic daily migraine. History of Chiari malformation s/p decompression Thoracic aneurysm Tricuspid regurgitation History of Pulmonary embolism Plan: Regarding the patient cephalgia especially with a history of Malformation I ordered CT head. CT of the head was reported as a prior decompression surgery for Chiari I malformation. No acute intracranial abnormality seen. Patient was started on Fioricets one tablet every 6 hours as needed for the headache, Benadryl 50 mg once in the ED, Pepcid once in the ED. As well as the patient is on Zofran every hours as needed. She was also given Solu-Medrol 125 mg IV once in the ED. I will give the patient magnesium 1 g once, I'll start the patient on Robaxin 1000 mg 3 times a day as needed her home medication, I'll give her Benadryl 25 mg IV once and the lastly I will give her 5 mg of Compazine and wants to try to alleviate this headache further. I think the patient will benefit from mild Botox injection regarding management of her migraine and the she was notified to follow up with her neurologist regarding that. I believe the patient has also a component of medication overuse headache because she is on [place] 1 tablet the twice a day Motrin 800 mg 1 tablet twice a day. In the long run if this Botox helped hopefully the she can, off of the [place] as well as the Motrin. Regarding the patient chest pain, cardiology is on board. Upon discharge the patient needs follow-up with a neurologist and neurosurgeon for further management of the Chiari malformation. Thank you for the consultation. Cleve Garza M.D. Neuro-hospitalist Time with Patient: Greater than 30
[2020-10-07 18:34] LABS: % Iron Saturation 3.16 (12.00-45.00); Ferritin 2.7 ng/mL (10.0-291.0); Iron 11 ug/dL (50-170); Total Iron Binding Capacity 348 ug/dL (228-460)
--- NOTE | 2020-10-07 19:18 | P.PN ---
Subjective Patient is a 40-year-old female with a known history of migraine headaches, fibromyalgia, history of pulmonary embolism, surgery for she had a chiari malformation in 2015 and brain decompression, renal stones with ureteral stent and anxiety and previous history of smoking presents to ER with the complaints of chest pain of one-day duration, she stated that her chest pain was severe that she was on the ground for 4-5 minutes which is Eased down On admission to the emergency room duct was 8/10, today is less as 2-3/10 in severity. There was report some dyspnea on admission however currently patient denies any dyspnea, with a little cough and no phlegm. Patient underwent stress echo test Showing good exercise tolerance with normal EKG and echocardiogram in response to exercise. I also discussed the case with the leadership development consultant monorail crane operator Dr. Logan who reviewed CT of the thoracic aorta which was done yesterday showing opacification of the pulmonary arteries and its branches with no evidence of pulmonary embolism. The suspicion of PE is very low currently. Besides patient chest pain subsided spontaneously and significantly CT thoracic aorta showed aortic management within the ascending aorta measures 3.5 cm in maximal dimension. However patient complained from severe headache today about 8/10 in severity aching all over her brain which is felt like sharp. She has history of Chiari malformation and she denies any numbness or weakness or slurred speech or blurred vision. Neurologist saw the patient and order CT of the brain which was negative for acute process. Patient was given Robaxin as part of his medication, also Benadryl 1, Compazine 1, and magnesium 1 under neurology supervision Also there is possibility of medication overuse headache as she is on [place] and Motrin with recommendation to follow up with her neurologist for possible BOTOX injection to treat her migraine I offered to do states, patient declined stating that she has bilateral tubal ligation, risk, benefits are explained Review of systems CONSTITUTIONAL: No fever, no malaise, no fatigue. HEENT: No recent visual problems or hearing problems. Denied any sore throat. CARDIOVASCULAR: No orthopnea, PND, no palpitations, no syncope. PULMONARY: No shortness of breath, no cough, no hemoptysis. GASTROINTESTINAL: No diarrhea, no nausea, no vomiting, no abdominal pain. Normoactive bowel sounds. NEUROLOGICAL: No headaches, no weakness, no numbness. Active Medications Generic Name Dose Route Start Last Admin Trade Name Freq PRN Reason Stop Dose Admin Acetaminophen/Butalbital/Caffeine 1 each 10/06/20 19:55 10/07/20 13:53 Butalb/Apap/Caff 50-325-40mg Tab PO 1 each Q6H PRN Administration Migraine Headache Hydrocodone Bitart/Acetaminophen 1 each 10/06/20 11:28 10/07/20 12:13 Hydrocodone/Apap 10-325mg 1 Each Tab PO 1 each Q6HR PRN Administration Pain Aspirin 81 mg 10/08/20 09:00 Aspirin 81 Mg PO DAILY [facility] Famotidine 20 mg 10/06/20 11:30 10/07/20 08:20 Famotidine 20 Mg Tab PO 20 mg BID KELSIE Administration Heparin Sodium (Porcine) 5,000 unit 10/07/20 00:00 10/07/20 17:24 Heparin Sodium,Porcine 5,000 Unit/Ml 1 Ml Vial SQ Not Given Q8HR KELSIE Ibuprofen 800 mg 10/07/20 14:57 10/07/20 15:23 Ibuprofen 800 Mg Tab PO 800 mg Q8HR PRN Administration Pain Methocarbamol 1,000 mg 10/07/20 14:57 Methocarbamol 500 Mg Tab PO TID PRN Breakthrough Pain Morphine Sulfate 2 mg 10/06/20 08:55 10/07/20 09:01 Morphine Sulfate 2 Mg/Ml Syringe IVP 2 mg Q4H PRN Administration Pain/Discomfort Nitroglycerin 0.4 mg 10/06/20 10:19 Nitroglycerin Sl Tabs 0.4 Mg Tab SUBLINGUAL Q5M PRN Chest Pain Ondansetron HCl 8 mg 10/06/20 11:28 Ondansetron Odt 8 Mg Tab.Rapdis PO Q8HR PRN Nausea Objective - Vital Signs Vital signs: Vital Signs Temp 97.5 F L 10/07/20 15:00 Pulse 63 10/07/20 15:00 Resp 16 10/07/20 15:00 BP 116/79 10/07/20 15:00 Pulse Ox 97 10/07/20 15:00 Intake & Output 10/06/20 10/07/20 10/07/20 18:59 06:59 18:59 Weight 104.326 kg 104.33 kg Other: Voiding Method Toilet Toilet # Voids 2 2 - Exam GENERAL: The patient is alert and oriented x3, not in any acute distress. Well developed, well nourished. HEENT: Pupils are round and equally reacting to light. EOMI. No scleral icterus. No conjunctival pallor. Normocephalic, atraumatic. No pharyngeal erythema. No thyromegaly. CARDIOVASCULAR: S1 and S2 present. No murmurs, rubs, or gallops. PULMONARY: Chest is clear to auscultation, no wheezing or crackles. ABDOMEN: Soft, nontender, nondistended, normoactive bowel sounds. No palpable organomegaly. MUSCULOSKELETAL: No joint swelling or deformity. EXTREMITIES: No cyanosis, clubbing, or pedal edema. NEUROLOGICAL: Gross neurological examination did not reveal any focal deficits. SKIN: No rashes. no petechiae. - Labs CBC & Chem 7: 10/06/20 09:03 10/07/20 09:17 Labs: Abnormal Lab Results - Last 24 Hours (Table) 10/07/20 Range/Units 09:17 Chloride 113 H (98-107) mmol/L BUN 18 H (7-17) mg/dL Calcium 8.2 L (8.4-10.2) mg/dL Assessment and Plan Assessment: Migraine headache and a few of her history of Chiari malformation status post history of decompression Chest pain, improving spontaneously, stress this is negative. No PE per my disc ussion with radiologist on her CT of the thorax on 10/06 Ascending aortic aneurysm 3.5 cm in size Fibromyalgia Anxiety Previous history of smoking History of marijuana use History of renal stones and stent placement Plan: This is a pleasant 40 years old female who presents with chest pain and headache. Stress this is negative, leadership development consultant on the case. No PE and CT of the thorax as per my discussion with radiologist. Her chest pain is improved the suspicion for PE is very low and Aide has worse than benefits. Neurologist evaluated the patient, we will follow their recommendation. He recommended Botox injection as an outpatient with her neurologist Dr. Finnegan. Labs and medication were reviewed.. Continue same treatment. Continue with symptomatic treatment. Resume home medication. Monitor lytes and vitals. DVT and GI prophylaxis. Further recommendationsas per clinical course of the patient DVT prophylaxis: Subcutaneous heparin GI Prophylaxis: Pepcid
[2020-10-08] MEDS: MORPHINE SULFATE 2 MG/ML SYRINGE IVP PRN ×2 (01:31→11:58)
[2020-10-08] MEDS: HYDROcodone/APAP 10-325MG 1 EACH TAB PO PRN (05:07)
[2020-10-08 05:39] VITALS: RESP 16
[2020-10-08 08:42] VITALS: TEMP 98
[2020-10-08] MEDS: FAMOTIDINE 20 MG TAB PO SCH (08:55)
[2020-10-08] MEDS: IBUPROFEN 800 MG TAB PO PRN (08:55)
[2020-10-08] MEDS: HEPARIN SODIUM,PORCINE 5,000 UNIT/ML 1 ML VIAL SQ SCH (08:55)
[2020-10-08] MEDS ORDERED: ASPIRIN 81 MG PO SCH (09:00)
[2020-10-08] MEDS ORDERED: fentaNYL (PF) 50 MCG/ML 2 ML AMP ONE (10:14)
[2020-10-08] MEDS ORDERED: SODIUM CHLORIDE 0.9% 500 ML 500 ML IV ONE (10:50)
[2020-10-08] MEDS ORDERED: MIDAZOLAM 2 MG/2 ML VIAL IV ONE ×2 (10:55→10:58)
[2020-10-08] MEDS ORDERED: BENZOCAINE SPRAY 1 CAN MUCOUS MEM ONE (10:55)
[2020-10-08] MEDS ORDERED: fentaNYL (PF) 50 MCG/ML 2 ML AMP IV ONE (10:55)
[2020-10-08 11:08] VITALS: BP 99/54; PULSE 70
--- NOTE | 2020-10-08 11:33 | ECHOT ---
TRANSESOPHAGEAL ECHOCARDIOGRAM DATE OF SERVICE: 10/08/2020 PERFORMING PHYSICIAN: Jarod Armstrong MD. PROCEDURE PERFORMED: Transesophageal echocardiogram. INDICATION: Aortic valve tumor. COMPLICATION: None. LEVEL OF SEDATION: Moderate with sedation length of 12 minutes. PROCEDURE DESCRIPTION: After obtaining an informed consent, explaining the procedure, benefits, risks, complications and alternatives, the patient was brought to the transesophageal echocardiogram suite. A pulse oximetry and heart rate monitors were attached to the patient prior to the procedure. The patient's throat was sprayed using lidocaine locally. Following that, the patient was turned into left lateral position. A bite guard was placed and the patient was then sedated with the above doses of Versed and fentanyl in divided doses. Following that, the transesophageal echocardiogram probe was advanced through the bite guard into the mid esophagus where 2-D echocardiogram images as well as color Doppler images of various cardiac structures were obtained. We evaluated the interatrial septum using 2-D echocardiogram, color Doppler, and contrast study. The procedure was completed. There were no complications. FINDINGS: The left ventricular dimension and systolic function appeared to be within normal limits. The ejection fraction appeared to be in the range of 55% to 60%. The right ventricle appeared to be of normal size and function. The left atrium and right atrium appeared to be within normal limits for dimension. The left atrial appendage appeared to be intact. The interatrial septum appeared to be intact. The aortic valve is trileaflet valve without stenosis and without regurgitation and without any masses. The mitral valve seems to be normal as well with mild MR normal tricuspid valve and pulmonic valve. The aortic root appeared to be mildly dilated. CONCLUSION: 1. Normal left ventricular dimension and systolic function. 2. Normal right ventricular dimension and systolic function. 3. Overall normal intracardiac valves. 4. Mildly dilated aortic root. 5. No evidence of pericardial effusion. MMODL / IJN: [id number] /
--- NOTE | 2020-10-08 17:02 | P.PN ---
Subjective Progress Note Date: 10/08/20 Patient was seen at bedside today and she felt like her headache is much improved today compared to yesterday. She said the headache currently is 2 out of 10. Currently she doesn't have any photophobia any photophobia any nausea or vomiting. Her headache is in the bilateral frontal region. She said that these headaches are chronic and they never go away but they generally the subsided somewhat with pain medication for the most part. Objective - Vital Signs Vital signs: Vital Signs Temp 98.0 F 10/08/20 08:39 Pulse 70 10/08/20 11:05 Resp 16 10/08/20 11:05 BP 99/54 10/08/20 11:05 Pulse Ox 95 10/08/20 11:05 Intake & Output 10/07/20 10/08/20 10/08/20 18:59 06:59 18:59 Intake Total 240 75 Balance 240 75 Weight 104.33 kg Intake: IV 75 Oral 240 0 Other: Voiding Method Toilet Toilet # Voids 2 1 - Exam GENERAL: The patient is lying in bed and not in acute distress. CHEST: The heart rate is regular rate rhythm. No murmurs to auscultation. No carotid bruit bilaterally. NEUROLOGICAL: Higher mental function: The patient is awake, alert, oriented to self, place and time. Patient is following commands. No aphasia and no neglect. Cranial nerves: The pupils are round, equal and reactive to light and accommodation. Visual power are full to confrontation throughout. Extraocular movement is intact no nystagmus is noted. Facial sensation is normal to touch throughout. The facial strength is normal throughout. Hearing is normal bilaterally to hand rub. Tongue is midline and moved [id number] without any difficulty. No dysarthria is noted. Shoulder shrug is normal bilaterally. Motor: The strength is 5 over 5 throughout. Normal tone and bulk. Cerebellum: Normal finger to nose heel to [place] bilaterally. Sensation: Sensation is normal to touch throughout. Reflexes (right/left): 2+ Plantars are downgoing bilaterally. - Labs CBC & Chem 7: 10/06/20 09:03 10/07/20 09:17 Labs: Abnormal Lab Results - Last 24 Hours (Table) 10/07/20 Range/Units 09:17 Iron 11 L (50-170) ug/dL % Saturation 3.16 L (12.00-45.00) Ferritin 2.7 L (10.0-291.0) ng/mL Assessment and Plan Assessment: his is a 40-year-old woman with history of Chiari malformation type I s/p d ecompression 2014 and 2016, Chronic daily migraine thoracic aneurysm, tricuspid regurgitation, pulmonary embolism that presented to the emergency department on 10/06/2020 for chest pain. She is currently having a headache. Chronic intractable daily migraine--improved today compared to yesterday. History of Chiari malformation s/p decompression Thoracic aneurysm Tricuspid regurgitation History of Pulmonary embolism Plan: Regarding the patient cephalgia especially with a history of Malformation I ordered CT head. CT of the head was reported as a prior decompression surgery for Chiari I malformation. No acute intracranial abnormality seen. Patient was started on Fioricets one tablet every 6 hours as needed for the headache, Benadryl 50 mg once in the ED, Pepcid once in the ED. As well as the patient is on Zofran every hours as needed. She was also given Solu-Medrol 125 mg IV once in the ED. I think the patient will benefit from mild Botox injection regarding management of her migraine and the she was notified to follow up with her neurologist regarding that. I believe the patient has also a component of medication overuse headache because she is on [place] 1 tablet the twice a day Motrin 800 mg 1 tablet twice a day. In the long run if this Botox helped hopefully the she can, off of the [place] as well as the Motrin. Regarding the patient chest pain, cardiology is on board. Upon discharge the patient needs follow-up with a neurologist and neurosurgeon for further management of the Chiari malformation within 2 weeks. Patient is clear from a neurology perspective. Cleve Garza M.D. Neuro-hospitalist Time with Patient: Less than 30
--- NOTE | 2020-10-08 23:34 | P.DS ---
Providers Date of admission: 10/06/20 11:02 Attending physician: Inge Schwarz Consults: 10/06/20 10:20 Consult Physician Urgent Consulting Provider: Jarod Armstrong Consult Reason/Comments: chest pain r/o Do you want consulting provider notified?: Yes, Notify in am 10/07/20 11:46 Consult Physician Urgent Consulting Provider: Cleve Garza Consult Reason/Comments: MARSH, h/o chiare malformation Do you want consulting provider notified?: Yes Primary care physician: [facility] Course: Diagnoses: Migraine headache and previous history of Chiari malformation status post history of decompression. Patient headache back to baseline upon discharge Chest pain, improving spontaneously, stress test is negative. No PE per my discussion with radiologist on her CT of the thorax on 10/06 Ascending aortic aneurysm 3.5 cm in size Fibromyalgia Anxiety Previous history of smoking History of marijuana use History of renal stones and stent placement Hospital course Patient is a 40-year-old female with a known history of migraine headaches, fibromyalgia, history of pulmonary embolism, surgery for she had a chiari malformation in 2014 and brain decompression, renal stones with ureteral stent and anxiety and previous history of smoking presents to ER with the complaints of chest pain of one-day duration, CT thoracic aorta showed aortic management within the ascending aorta measures 3.5 cm in maximal dimension.I also discussed the case with the customs import specialist director of occupational therapy Dr. Logan who reviewed CT of the thoracic aorta which was done on admission showing opacification of the pulmonary arteries and its branches with no evidence of pulmonary embolism. Chest pain is completely resolved today and patient rated as 0/10. Also patient has negative stress test by cardiology team, however echocardiogram was suspicious for a mass in relation to aortic valve, REJI was done today which was negative for any such mass, eventually patient was cleared for discharge by customs import specialist Yesterday patient developed a severe headache with no weakness or numbness or blurred vision. Neurologist evaluated the patient and in view of her migraine and history of Chiari malformation. Patient was treated symptomatically with Benadryl, Compazine and magnesium and her headache severity subsided and today it is related by the patient as 3/10 which is her usual chronic headache, CT of the brain was negative, patient was cleared for discharge by neurologist with recommendation to follow up with her neurosurgeon and her neurologist Dr. Mandel in 1-2 weeks, patient informed and she states she can call and make her own appointment that she has contact information on the day of discharge patient states she is back to her baseline, and she wants to go home today. She denies any other symptoms, no abdominal pain or nausea vomiting. No change in urine or bowel habits. No fever Patient was cleared for discharge by cardiology and nephrology services Problems and management plan were discussed with the patient and he verbalized understanding and acceptance Patient was found stable and can be discharged home however he needs follow-up as an outpatient. Patient was instructed to follow up with PCP Dr. Mansfield within one week and patient agrees Also patient was instructed to follow up with vascular surgeon Dr. Valdivia in 1-2 weeks and she agrees. Patient was instructed to follow up with her neurologist Dr. Mandel at [facility] and her neurosurgeon in 1-2 weeks and she agrees. She has the contact information Gen: patient is a AAOx3, no distress CVS: S1-S2, RRR, no murmur Lungs: B/L CTA, no wheezing Abdomen: soft, no distention, no tenderness, positive bowel sounds Extremity: no leg edema or induration Time spent more than 35 minutes Patient Condition at Discharge: Stable Plan - Discharge Summary Discharge Rx Participant: No New Discharge Prescriptions: Continue Ibuprofen [Motrin] 800 mg PO Q8HR PRN PRN Reason: Pain Ondansetron Odt [Zofran ODT] 8 mg PO Q8HR PRN PRN Reason: Nausea methocarbamoL [Robaxin] 1,000 mg PO TID HYDROcodone/APAP 10-325MG [[place] 10-325] 1 tab PO Q6HR PRN PRN Reason: Pain ALPRAZolam [Xanax] 1 mg PO TID PRN PRN Reason: Anxiety Butalb/APAP/Caff 50-325-40Mg [Fioricet 50-325-40] 1 tab PO Q6H PRN PRN Reason: Migraine Headache Famotidine [Pepcid] 20 mg PO BID Discharge Medication List Ibuprofen [Motrin] 800 mg PO Q8HR PRN 11/01/16 [History] HYDROcodone/APAP 10-325MG [[place] 10-325] 1 tab PO Q6HR PRN 06/10/20 [History] Ondansetron Odt [Zofran ODT] 8 mg PO Q8HR PRN 06/10/20 [History] methocarbamoL [Robaxin] 1,000 mg PO TID 06/10/20 [History] ALPRAZolam [Xanax] 1 mg PO TID PRN 10/06/20 [History] Butalb/APAP/Caff 50-325-40Mg [Fioricet 50-325-40] 1 tab PO Q6H PRN 10/06/20 [History] Famotidine [Pepcid] 20 mg PO BID 10/06/20 [History] Follow up Appointment(s)/Referral(s): Mikki Valdivia DO [STAFF PHYSICIAN] - 10/16/20 11:30 am (aortic aneurysm ) Mikki Mansfield MD [Primary Care Provider] - 10/14/20 8:20 am Patient Instructions/Handouts: Chest Pain (DC) Activity/Diet/Wound Care/Special Instructions: Resume previous diet Activities Limited until you see your doctor's We recommend you follow-up with neurologist at [facility] (Dr. Mendez) in 1-2 weeks, please call to make an appointment, you have the contact information as informed the medical team Discharge Disposition: HOME SELF-CARE
== END 2020-10-08 13:30 | disposition home or self-care (01) ==
LOC: EC 08:43 → 1SOBS 11:02
PROVIDERS: ADMIT Internal Medicine; ATTEND Internal Medicine
DX: R07.89 Other chest pain (principal); M79.603 Pain in arm, unspecified; R06.02 Shortness of breath; G43.919 Migraine, unspecified, intractable, without status migrainosus; I71.2 Thoracic aortic aneurysm, without rupture; M79.7 Fibromyalgia; F41.9 Anxiety disorder, unspecified; M06.9 Rheumatoid arthritis, unspecified; I07.1 Rheumatic tricuspid insufficiency; G89.29 Other chronic pain; G25.2 Other specified forms of tremor; Z20.828 Contact with and (suspected) exposure to other viral communicable diseases; Z86.711 Personal history of pulmonary embolism; Z98.890 Other specified postprocedural states; Z79.1 Long term (current) use of non-steroidal anti-inflammatories (NSAID); Z79.891 Long term (current) use of opiate analgesic; Z79.899 Other long term (current) drug therapy; Z88.8 Allergy status to other drugs, medicaments and biological substances; Z87.442 Personal history of urinary calculi; Z90.49 Acquired absence of other specified parts of digestive tract; Z98.51 Tubal ligation status; Z87.728 Personal history of other specified (corrected) congenital malformations of nervous system and sense organs; Z91.89 Other specified personal risk factors, not elsewhere classified; Z87.891 Personal history of nicotine dependence; Z82.79 Family history of other congenital malformations, deformations and chromosomal abnormalities; Z82.49 Family history of ischemic heart disease and other diseases of the circulatory system
CPT/HCPCS: 93005 ×2; 96372; 96376 ×2; 96374; 96375; 99285; 36415; 93312; 93320; 93325; 93306; 93351; 83880; 80061; 80053; 80048; 82728; 83540; 83550; 83690; 83735; 84484; 85025; 85610; 85730; 87635; 71046; 70450; 71275; 74174; G0378 ×3; S0183; J2250; J1200 ×2; J1644 ×2; J2930; J3010; J2270 ×3; J3475; Q9967

== ENCOUNTER 2023-11-14 10:58 | Emergency (ER) | payer MEDICARE, OTHER ==
[2023-11-14] MEDS ORDERED: KETOROLAC 15 MG/ML 1 ML VIAL IVP STA (12:03)
--- NOTE | 2023-11-14 12:03 | ED ---
General Adult HPI - General Chief complaint: Recheck/Abnormal Lab/Rx Stated complaint: Sore Throat, Time Seen by Provider: 11/14/23 11:17 Source: patient, RN notes reviewed Mode of arrival: ambulatory Limitations: no limitations - History of Present Illness Initial comments: 43-year-old female presents emergency department for evaluation of anterior neck pain. Patient states that she feels like her neck in the front is swollen. She states that she feels some pain when she swallows. She denies any recent fever, chills, nausea, vomiting. Patient states that she is still able to swallow liquids and solids without issue. He is currently being worked up for this at her primary care provider's office. she has an ultrasound scheduled for next mo [facility] - Related Data Home Medications Medication Instructions Recorded Confirmed Ibuprofen [Motrin] 800 mg PO Q8HR PRN 11/01/16 10/06/20 HYDROcodone/APAP 10-325MG [[place] 1 tab PO Q6HR PRN 06/10/20 10/06/20 10-325] Ondansetron Odt [Zofran ODT] 8 mg PO Q8HR PRN 06/10/20 10/06/20 methocarbamoL [Robaxin] 1,000 mg PO TID 06/10/20 10/06/20 ALPRAZolam [Xanax] 1 mg PO TID PRN 10/06/20 10/06/20 Butalb/APAP/Caff 50-325-40Mg 1 tab PO Q6H PRN 10/06/20 10/06/20 [Fioricet 50-325-40] Famotidine [Pepcid] 20 mg PO BID 10/06/20 10/06/20 Allergies Allergy/AdvReac Type Severity Reaction Status Date / Time metoclopramide HCl Allergy Hallucinati Verified 11/14/23 11:04 [From Reglan] ons Review of Systems ROS Statement: Those systems with pertinent positive or pertinent negative responses have been documented in the HPI. ROS Other: All systems not noted in ROS Statement are negative. Past Medical History Past Medical History: Fibromyalgia, Pulmonary Embolus (PE), Renal Disease Additional Past Medical History / Comment(s): kidney stones with stent, chairi malformation, tricuspid regurgitation, left ventricular hypertrophy, RA. 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, brain decompression 09/01/17 Past Anesthesia/Blood Transfusion Reactions: Postoperative Nausea & Vomiting (PONV) Past Psychological History: Anxiety Smoking Status: Former smoker Past Alcohol Use History: None Reported, Rare Past Drug Use History: Marijuana - Past Family History Father Additional Family Medical History / Comment(s): born with hole in heart, valve replacements, heart attacks, pacemaker General Exam Limitations: no limitations General appearance: alert, in no apparent distress Head exam: Present: atraumatic, normocephalic, normal inspection Eye exam: Present: normal appearance, PERRL, EOMI. Absent: scleral icterus, conjunctival injection, periorbital swelling ENT exam: Present: normal exam, mucous membranes moist Neck exam: Present: normal inspection, full ROM, other (No visible swelling to the neck, full range of motion, no stridor). Absent: tenderness, meningismus, lymphadenopathy, thyromegaly Respiratory exam: Present: normal lung sounds bilaterally. Absent: respiratory distress, wheezes, rales, rhonchi, stridor Cardiovascular Exam: Present: regular rate, normal rhythm, normal heart sounds. Absent: systolic murmur, diastolic murmur, rubs, gallop, clicks Extremities exam: Present: normal inspection, full ROM, normal capillary refill. Absent: tenderness, pedal edema, joint swelling, calf tenderness Back exam: Present: normal inspection Neurological exam: Present: alert, oriented X3, CN II-XII intact Psychiatric exam: Present: normal affect, normal mood Course Vital Signs 11/14/23 11/14/23 11/14/23 11:01 13:23 14:19 Temperature 97.9 F 98.6 F 98.7 F Pulse Rate 86 57 L 59 L Respiratory 18 16 16 Rate Blood Pressure 144/91 127/83 97/56 O2 Sat by Pulse 99 98 98 Oximetry Medical Decision Making - Medical Decision Making Was pt. sent in by a medical professional or institution (, PA, BABY FORMULA WORKER, urgent care, hospital, or care home...) When possible be specific @ -No Did you speak to anyone other than the patient for history (EMS, parent, family, police, friend...)? What history was obtained from this source @ -No Did you review nursing and triage notes (agree or disagree)? Why? @ -I reviewed and agree with nursing and triage notes Were old charts reviewed (outside hosp., previous admission, EMS record, old EKG, old radiological studies, urgent care reports/EKG's, care home records)? Report findings @ -No old charts were reviewed Differential Diagnosis (chest pain, altered mental status, abdominal pain women, abdominal pain men, vaginal bleeding, weakness, fever, dyspnea, syncope, headache, dizziness, GI bleed, back pain, seizure, CVA, palpatations, mental he alth, musculoskeletal)? @ -Strep, mono, thyroid goiter, esophageal foreign body, this list is not all- inclusive EKG interpreted by me (3pts min.). @ -None X-rays interpreted by me (1pt min.). @ -Soft tissue neck x-ray shows no acute process CT interpreted by me (1pt min.). @ -None done U/S interpreted by me (1pt. min.). @ -None done What testing was considered but not performed or refused? (CT, X-rays, U/S, labs)? Why? @ -None What meds were considered but not given or refused? Why? @ -None Did you discuss the management of the patient with other professionals (professionals i.e. , PA, BABY FORMULA WORKER, lab, RT, psych nurse, social media community manager, housekeeping room inspector, teacher, armored vehicle officer, family caseworker)? Give summary @ -No Was smoking cessation discussed for >3mins.? @ -No Was critical care preformed (if so, how long)? @ -No Were there social determinants of health that impacted care today? How? (Homelessness, low income, unemployed, alcoholism, drug addiction, transportation, low edu. Level, literacy, decrease access to med. care, intermediate, rehab)? @ -No Was there de-escalation of care discussed even if they declined (Discuss DNR or withdrawal of care, Hospice)? DNR status @ -No What co-morbidities impacted this encounter? (DM, HTN, Smoking, COPD, CAD, Ca ncer, CVA, ARF, Chemo, Hep., AIDS, mental health diagnosis, sleep apnea, morbid obesity)? @ -None Was patient admitted / discharged? Hospital course, mention meds given and route, prescriptions, significant lab abnormalities, going to OR and other pertinent info. @ -Discharged. Patient presented to the emergency department for evaluation of anterior neck discomfort with pain and swelling. Patient is handling her secretions. Patient is tolerating oral intake at this time. X-ray soft tissue of neck shows no acute process. Laboratory studies are obtained. Patient is a anemic at hemoglobin 9.0 which is normal for the patient. She is being further worked up by her primary care provider for this. WBC 15.9. Patient has been taking steroids recently for the neck discomfort. Patient negative for strep pharyngitis, mononucleosis. Patient was given a GI cocktail which improved her symptoms. Advised to continue follow-up with her primary care provider patient given information for ENT follow-up. Patient initiated. We'll discharge him. Patient without discharge. Case discussed with Dr. Singletary Undiagnosed new problem with uncertain prognosis? @ -No Drug Therapy requiring intensive monitoring for toxicity (Heparin, Nitro, Insulin, Cardizem)? @ -No Were any procedures done? @ -No Diagnosis/symptom? @ -painful swallowing Acute, or Chronic, or Acute on Chronic? @ -acute Uncomplicated (without systemic symptoms) or Complicated (systemic symptoms)? @ -uncomplicated Side effects of treatment? @ -No Exacerbation, Progression, or Severe Exacerbation? @ -No Poses a threat to life or bodily function? How? (Chest pain, USA, MD, pneumonia, PE, COPD, DKA, ARF, appy, cholecystitis, CVA, Diverticulitis, Homicidal, Suicidal, threat to staff... and all critical care pts) @ -No - Lab Data Result diagrams: 11/14/23 11:52 11/14/23 11:52 Lab Results 11/14/23 11/14/23 11/14/23 Range/Units 11:52 11:52 11:52 WBC 15.9 H (3.8-10.6) k/uL RBC 3.87 (3.80-5.40) m/uL Hgb 9.0 L (11.4-16.0) gm/dL Hct 30.6 L (34.0-46.0) % MCV 79.0 L (80.0-100.0) fL MCH 23.1 L (25.0-35.0) pg MCHC 29.3 L (31.0-37.0) g/dL RDW 19.2 H (11.5-15.5) % Plt Count 431 (150-450) k/uL MPV 7.8 Neutrophils % 87 % Lymphocytes % 9 % Monocytes % 3 % Eosinophils % 0 % Basophils % 0 % Neutrophils # 13.9 H (1.3-7.7) k/uL Lymphocytes # 1.4 (1.0-4.8) k/uL Monocytes # 0.5 (0-1.0) k/uL Eosinophils # 0.0 (0-0.7) k/uL Basophils # 0.0 (0-0.2) k/uL Hypochromasia Marked Anisocytosis Slight Microcytosis Slight PT 10.2 (10.0-12.5) sec INR 0.9 (<1.2) APTT 21.8 L (22.0-30.0) sec Sodium 140 (137-145) mmol/L Potassium 4.0 (3.5-5.1) mmol/L Chloride 105 (98-107) mmol/L Carbon Dioxide 24 (22-30) mmol/L Anion Gap 11 mmol/L BUN 18 H (7-17) mg/dL Creatinine 0.55 (0.52-1.04) mg/dL Est GFR (CKD-EPI)AfAm >90 (>60 ml/min/1.73 sqM) Est GFR (CKD-EPI)NonAf >90 (>60 ml/min/1.73 sqM) Glucose 76 (74-99) mg/dL Calcium 9.2 (8.4-10.2) mg/dL Total Bilirubin 0.3 (0.2-1.3) mg/dL AST 19 (14-36) U/L ALT 22 (4-34) U/L Alkaline Phosphatase 56 (38-126) U/L Total Protein 6.9 (6.3-8.2) g/dL Albumin 4.2 (3.5-5.0) g/dL TSH 0.766 (0.465-4.680) mIU/L Heterophile Antibody (Negative) Group A Strep (PCR) (Not Detectd) 11/14/23 11/14/23 Range/Units 11:52 11:52 WBC (3.8-10.6) k/uL RBC (3.80-5.40) m/uL Hgb (11.4-16.0) gm/dL Hct (34.0-46.0) % MCV (80.0-100.0) fL MCH (25.0-35.0) pg MCHC (31.0-37.0) g/dL RDW (11.5-15.5) % Plt Count (150-450) k/uL MPV Neutrophils % % Lymphocytes % % Monocytes % % Eosinophils % % Basophils % % Neutrophils # (1.3-7.7) k/uL Lymphocytes # (1.0-4.8) k/uL Monocytes # (0-1.0) k/uL Eosinophils # (0-0.7) k/uL Basophils # (0-0.2) k/uL Hypochromasia Anisocytosis Microcytosis PT (10.0-12.5) sec INR (<1.2) APTT (22.0-30.0) sec Sodium (137-145) mmol/L Potassium (3.5-5.1) mmol/L Chloride (98-107) mmol/L Carbon Dioxide (22-30) mmol/L Anion Gap mmol/L BUN (7-17) mg/dL Creatinine (0.52-1.04) mg/dL Est GFR (CKD-EPI)AfAm (>60 ml/min/1.73 sqM) Est GFR (CKD-EPI)NonAf (>60 ml/min/1.73 sqM) Glucose (74-99) mg/dL Calcium (8.4-10.2) mg/dL Total Bilirubin (0.2-1.3) mg/dL AST (14-36) U/L ALT (4-34) U/L Alkaline Phosphatase (38-126) U/L Total Protein (6.3-8.2) g/dL Albumin (3.5-5.0) g/dL TSH (0.465-4.680) mIU/L Heterophile Antibody Negative (Negative) Group A Strep (PCR) NOT DETECTED (Not Detectd) Disposition Clinical Impression: Neck complaint Disposition: HOME SELF-CARE Condition: Stable Instructions (If sedation given, give patient instructions): Neck Pain (ED) Additional Instructions: Please follow up with your primary care provider. Return to the emergency department for new or worsening symptoms. Is patient prescribed a controlled substance at d/c from ED?: No Referrals: None,Stated [Primary Care Provider] - 1-2 days Salvador Mcdonald DO [Doctor of Osteopathic Medicine] - 1-2 days Myron Mcgee MD [STAFF PHYSICIAN] - 1-2 days Jason Almaraz MD [STAFF PHYSICIAN] - 1-2 days
[2023-11-14 12:09] LABS: Anisocytosis Slight; Basophils % (A) 0 %; Eosinophils % (A) 0 %; HCT 30.6 % (34.0-46.0); Hypochromasia Marked; Lymphocytes # (A) 1.4 k/uL (1.0-4.8); Lymphocytes % (A) 9 %; MCH 23.1 pg (25.0-35.0); MCHC 29.3 g/dL (31.0-37.0); Mean Platelet Volume 7.8; Microcytosis Slight; Monocytes # (A) 0.5 k/uL (0-1.0); Monocytes % (A) 3 %; Neutrophils # (A) 13.9 k/uL (1.3-7.7); Neutrophils % (A) 87 %; Platelet Count 431 k/uL (150-450); RBC 3.87 m/uL (3.80-5.40); RDW 19.2 % (11.5-15.5); WBC 15.9 k/uL (3.8-10.6)
[2023-11-14 12:21] LABS: ALT 22 U/L (4-34); AST 19 U/L (14-36); African American GFR (CKD) >90 (>60 ml/min/1.73 sqM); Albumin 4.2 g/dL (3.5-5.0); Alkaline Phosphatase 56 U/L (38-126); Anion Gap 11 mmol/L; Blood Urea Nitrogen 18 mg/dL (7-17); Calcium 9.2 mg/dL (8.4-10.2); Carbon Dioxide 24 mmol/L (22-30); Chloride 105 mmol/L (98-107); Glucose 76 mg/dL (74-99); Non-African American GFR(CKD) >90 (>60 ml/min/1.73 sqM); Sodium 140 mmol/L (137-145); Total Bilirubin 0.3 mg/dL (0.2-1.3); Total Protein 6.9 g/dL (6.3-8.2)
[2023-11-14 12:25] LABS: INR 0.9 (<1.2); Prothrombin Time 10.2 sec (10.0-12.5)
[2023-11-14 12:37] LABS: Partial Thromboplastin Time 21.8 sec (22.0-30.0)
--- NOTE | 2023-11-14 13:09 | XR ---
EXAMINATION TYPE: XR soft tissue neck DATE OF EXAM: 11/14/2023 12:57 PM CLINICAL INDICATION:Female, 43 years old with history of pain, swelling; [facility] COMPARISON: 11/27/2011 TECHNIQUE: The soft tissues of the neck were imaged in frontal and lateral views. FINDINGS: The prevertebral soft tissues are unremarkable. There is no evidence of mass effect or trac heal deviation. No acute osseous abnormality demonstrated. No evidence of subglottic narrowing. IMPRESSION: No significant abnormality identified within the soft tissues of the neck.
[2023-11-14] MEDS ORDERED: MAG HYDROX/AL HYDROX/SIMETH 30 ML, HYOSCYAMINE ELIXIR 10 ML, LIDOCAINE 2% GLYDO JELLY 1... PO STA ×3 (13:11)
[2023-11-14 13:39] VITALS: RESP 16
[2023-11-14 14:23] VITALS: BP 97/56; PULSE 59; TEMP 98.7
== END 2023-11-14 14:35 | disposition home or self-care (01) ==
LOC: EC 10:58
DX: M54.2 Cervicalgia (principal); F41.9 Anxiety disorder, unspecified; F12.90 Cannabis use, unspecified, uncomplicated; Z87.891 Personal history of nicotine dependence; Z79.899 Other long term (current) drug therapy; Z88.8 Allergy status to other drugs, medicaments and biological substances
CPT/HCPCS: 36415; 87651; 80053; 84443; 85025; 85610; 85730; 86308; 70360; 99284; 96374; J1885

== ENCOUNTER 2023-11-17 02:18 | Emergency (ER) | payer MEDICARE, OTHER ==
--- NOTE | 2023-11-17 02:35 | ED ---
Abdominal Pain HPI - General Source: patient Mode of arrival: ambulatory Limitations: no limitations <Salbador Gandhi - Last Filed: 11/17/23 02:34> <Jayro Calle - Last Filed: 11/17/23 06:17> - General Chief Complaint: Abdominal Pain Stated Complaint: ABD Pain - History of Present Illness Initial Comments: 43-year-old female presenting to the ED with a chief complaint of abdominal pain. Patient has a past history significant for gastric sleeve performed at [facility]. States over the past few weeks has had difficulty swallowing which has been continuous until now however now states she is now unable to eat food as when she tries she started to experience pain in the left upper area of her abdomen. (Salbador Gandhi) - Related Data Home Medications Medication Instructions Recorded Confirmed Ibuprofen [Motrin] 800 mg PO Q8HR PRN 11/01/16 10/06/20 HYDROcodone/APAP 10-325MG [[place] 1 tab PO Q6HR PRN 06/10/20 10/06/20 10-325] Ondansetron Odt [Zofran ODT] 8 mg PO Q8HR PRN 06/10/20 10/06/20 methocarbamoL [Robaxin] 1,000 mg PO TID 06/10/20 10/06/20 ALPRAZolam [Xanax] 1 mg PO TID PRN 10/06/20 10/06/20 Butalb/APAP/Caff 50-325-40Mg 1 tab PO Q6H PRN 10/06/20 10/06/20 [Fioricet 50-325-40] Famotidine [Pepcid] 20 mg PO BID 10/06/20 10/06/20 Previous Rx's Medication Instructions Recorded Cephalexin [Keflex] 500 mg PO TID 10 Days #30 cap 11/17/23 Allergies Allergy/AdvReac Type Severity Reaction Status Date / Time metoclopramide HCl Allergy Hallucinati Verified 11/17/23 02:33 [From Reglan] ons Review of Systems ROS Other: All systems not noted in ROS Statement are negative. <Salbador Gandhi - Last Filed: 11/17/23 02:34> ROS Other: All systems not noted in ROS Statement are negative. <Jayro Calle - Last Filed: 11/17/23 06:17> ROS Statement: Those systems with pertinent positive or pertinent negative responses have been documented in the HPI. Past Medical History Past Medical History: Fibromyalgia, Pulmonary Embolus (PE), Renal Disease Additional Past Medical History / Comment(s): kidney stones with stent, chairi malformation, tricuspid regurgitation, left ventricular hypertrophy, RA. 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, brain decompression 09/01/17 Past Anesthesia/Blood Transfusion Reactions: Postoperative Nausea & Vomiting (PONV) Past Psychological History: Anxiety Smoking Status: Former smoker Past Alcohol Use History: None Reported, Rare Past Drug Use History: Marijuana - Past Family History Father Additional Family Medical History / Comment(s): born with hole in heart, valve replacements, heart attacks, pacemaker <Salbador Gandhi - Last Filed: 11/17/23 02:34> General Exam Limitations: no limitations <Salbador Gandhi - Last Filed: 11/17/23 02:34> Course Vital Signs 11/17/23 11/17/23 11/17/23 02:29 04:34 05:18 Temperature 97.8 F Pulse Rate 63 89 66 Respiratory 18 18 18 Rate Blood Pressure 144/90 126/99 125/79 O2 Sat by Pulse 100 98 99 Oximetry Medical Decision Making - Lab Data Result diagrams: 11/17/23 02:55 11/17/23 02:55 <Jayro Calle - Last Filed: 11/17/23 06:17> - Medical Decision Making Was pt. sent in by a medical professional or institution (, PA, FINANCE CONSULTANT, urgent care, hospital, or group home...) When possible be specific @ -No Did you speak to anyone other than the patient for history (EMS, parent, family, police, friend...)? What history was obtained from this source @ -No Did you review nursing and triage notes (agree or disagree)? Why? @ -I reviewed and agree with nursing and triage notes Were old charts reviewed (outside hosp., previous admission, EMS record, old EKG, old radiological studies, urgent care reports/EKG's, group home records)? Report findings @ -No old charts were reviewed Differential Diagnosis (chest pain, altered mental status, abdominal pain women, abdominal pain men, vaginal bleeding, weakness, fever, dyspnea, syncope, headache, dizziness, GI bleed, back pain, seizure, CVA, palpatations, mental health, musculoskeletal)? @ -DDifferential Abdominal Pain Women: Appendicitis, Cholecystitis, diverticulosis, ischemic bowel, pancreatitis, hepatitis, UTI, gastroenteritis, AAA, incarcerated hernia, bowel obstruction, constipation, inflammatory bowel, hepatitis, peptic ulcer disease, splenic infarction, perforated viscus, vulvitis, ovarian torsion, PID, kidney stone, placenta abruption, this is not meant to be an all-inclusive list EKG interpreted by me (3pts min.). @ -As above X-rays interpreted by me (1pt min.). @ -None done CT interpreted by me (1pt min.). @ -PT and pelvis with both oral and IV contrast, no acute abnormality identified, U/S interpreted by me (1pt. min.). @ -None done What testing was considered but not performed or refused? (CT, X-rays, U/S, labs)? Why? @ -None What meds were considered but not given or refused? Why? @ -None Did you discuss the management of the patient with other professionals (professionals i.e. , PA, FINANCE CONSULTANT, lab, RT, psych nurse, oncology social worker, distance education faculty liaison, teacher, complaint investigations officer, returned case inspector)? Give summary @ -No Was smoking cessation discussed for >3mins.? @ -No Was critical care preformed (if so, how long)? @ -No Were there social determinants of health that impacted care today? How? (Homelessness, low income, unemployed, alcoholism, drug addiction, transportation, low edu. Level, literacy, decrease access to med. care, group home, rehab)? @ -No Was there de-escalation of care discussed even if they declined (Discuss DNR or withdrawal of care, Hospice)? DNR status @ -No What co-morbidities impacted this encounter? (DM, HTN, Smoking, COPD, CAD, Cancer, CVA, ARF, Chemo, Hep., AIDS, mental health diagnosis, sleep apnea, morbid obesity)? @ -None Was patient admitted / discharged? Hospital course, mention meds given and route, prescriptions, significant lab abnormalities, going to OR and other pertinent info. @ -[23-year-old female presenting with epigastric abdominal pain history of gastric sleeve. Patient is afebrile, stable vitals. She has normal white blood cell count, she is anemic which is chronic for this patient. Normal electrolytes. CT does not show a definitive acute process. Patient does have urinary tract infection she will be treated for this and she will also take [id number] stool Dr. Return parameters discussed. Undiagnosed new problem with uncertain prognosis? @ -No Drug Therapy requiring intensive monitoring for toxicity (Heparin, Nitro, Insulin, Cardizem)? @ -No Were any procedures done? @ -No Diagnosis/symptom? @ -Abdominal pain, UTI Acute, or Chronic, or Acute on Chronic? @ -[Acute Uncomplicated (without systemic symptoms) or Complicated (systemic symptoms)? @ -default Side effects of treatment? @ -No Exacerbation, Progression, or Severe Exacerbation? @ -No Poses a threat to life or bodily function? How? (Chest pain, [place], [place], pneumonia, PE, COPD, DKA, ARF, appy, cholecystitis, CVA, Diverticulitis, Homicidal, Suicidal, threat to staff... and all critical care pts) @ -No (Jayro Calle) - Lab Data Lab Results 11/17/23 11/17/23 11/17/23 Range/Units 02:55 02:55 03:00 WBC 13.8 H (3.8-10.6) k/uL RBC 3.85 (3.80-5.40) m/uL Hgb 9.1 L (11.4-16.0) gm/dL Hct 30.1 L (34.0-46.0) % MCV 78.1 L (80.0-100.0) fL MCH 23.5 L (25.0-35.0) pg MCHC 30.1 L (31.0-37.0) g/dL RDW 19.1 H (11.5-15.5) % Plt Count 385 (150-450) k/uL MPV 7.9 Neutrophils % 68 % Lymphocytes % 24 % Monocytes % 5 % Eosinophils % 2 % Basophils % 0 % Neutrophils # 9.4 H (1.3-7.7) k/uL Lymphocytes # 3.4 (1.0-4.8) k/uL Monocytes # 0.7 (0-1.0) k/uL Eosinophils # 0.2 (0-0.7) k/uL Basophils # 0.1 (0-0.2) k/uL Hypochromasia Marked Anisocytosis Slight Microcytosis Slight Sodium 137 (137-145) mmol/L Potassium 4.0 (3.5-5.1) mmol/L Chloride 103 (98-107) mmol/L Carbon Dioxide 22 (22-30) mmol/L Anion Gap 12 mmol/L BUN 16 (7-17) mg/dL Creatinine 0.62 (0.52-1.04) mg/dL Est GFR (CKD-EPI)AfAm >90 (>60 ml/min/1.73 sqM) Est GFR (CKD-EPI)NonAf >90 (>60 ml/min/1.73 sqM) Glucose 86 (74-99) mg/dL Calcium 8.6 (8.4-10.2) mg/dL Total Bilirubin 0.6 (0.2-1.3) mg/dL AST 23 (14-36) U/L ALT 17 (4-34) U/L Alkaline Phosphatase 49 (38-126) U/L Total Protein 6.6 (6.3-8.2) g/dL Albumin 3.9 (3.5-5.0) g/dL Urine Color Yellow Urine Appearance Cloudy H (Clear) Urine pH 6.0 (5.0-8.0) Ur Specific [place] 1.031 (1.001-1.035) Urine Protein Trace H (Negative) Urine Glucose (UA) Negative (Negative) Urine Ketones Negative (Negative) Urine Blood Negative (Negative) Urine Nitrite Positive H (Negative) Urine Bilirubin Negative (Negative) Urine Urobilinogen <2.0 (<2.0) mg/dL Ur Leukocyte Esterase Large H (Negative) Urine RBC <1 (0-5) /hpf Urine WBC 131 H (0-5) /hpf Ur Squamous Epith Cells 22 H (0-4) /hpf Urine Bacteria Few H (None) /hpf Urine Mucus Many H (None) /hpf Disposition <Salbador Gandhi - Last Filed: 11/17/23 02:34> Is patient prescribed a controlled substance at d/c from ED?: No Time of Disposition: 06:16 <Jayro Calle - Last Filed: 11/17/23 06:17> Clinical Impression: Abdominal pain, Urinary tract infection Disposition: HOME SELF-CARE Condition: Fair Instructions (If sedation given, give patient instructions): Abdominal Pain (E D) Additional Instructions: Please take [id number] Colace for constipation. Prescriptions: Cephalexin [Keflex] 500 mg PO TID 10 Days #30 cap Referrals: Melina Martin [Primary Care Provider] - 1-2 days Rachel Sosa MD [STAFF PHYSICIAN] - 1-2 days
[2023-11-17 02:53] VITALS: RESP 18; TEMP 97.8
[2023-11-17 03:35] LABS: Anisocytosis Slight; Basophils # (A) 0.1 k/uL (0-0.2); Basophils % (A) 0 %; Eosinophils # (A) 0.2 k/uL (0-0.7); Eosinophils % (A) 2 %; HCT 30.1 % (34.0-46.0); HGB 9.1 gm/dL (11.4-16.0); Hypochromasia Marked; Lymphocytes # (A) 3.4 k/uL (1.0-4.8); Lymphocytes % (A) 24 %; MCH 23.5 pg (25.0-35.0); MCHC 30.1 g/dL (31.0-37.0); MCV 78.1 fL (80.0-100.0); Mean Platelet Volume 7.9; Microcytosis Slight; Monocytes # (A) 0.7 k/uL (0-1.0); Monocytes % (A) 5 %; Neutrophils # (A) 9.4 k/uL (1.3-7.7); Neutrophils % (A) 68 %; Platelet Count 385 k/uL (150-450); RBC 3.85 m/uL (3.80-5.40); RDW 19.1 % (11.5-15.5); WBC 13.8 k/uL (3.8-10.6)
[2023-11-17 03:52] LABS: ALT 17 U/L (4-34); AST 23 U/L (14-36); African American GFR (CKD) >90 (>60 ml/min/1.73 sqM); Albumin 3.9 g/dL (3.5-5.0); Alkaline Phosphatase 49 U/L (38-126); Anion Gap 12 mmol/L; Blood Urea Nitrogen 16 mg/dL (7-17); Calcium 8.6 mg/dL (8.4-10.2); Carbon Dioxide 22 mmol/L (22-30); Chloride 103 mmol/L (98-107); Glucose 86 mg/dL (74-99); Non-African American GFR(CKD) >90 (>60 ml/min/1.73 sqM); Sodium 137 mmol/L (137-145); Total Bilirubin 0.6 mg/dL (0.2-1.3); Total Protein 6.6 g/dL (6.3-8.2)
[2023-11-17] MEDS ORDERED: HYDROmorphone 0.5 MG/0.5 ML SYRINGE IVP STA (03:56)
[2023-11-17] MEDS ORDERED: FAMOTIDINE 20 MG/2 ML VIAL IV STA (03:56)
[2023-11-17 04:24] LABS: Appearance,Urine Cloudy (Clear); Bacteria,Urine Few /hpf; Bilirubin,Urine Negative (Negative); Blood,Urine Negative (Negative); Color,Urine Yellow; Glucose,Urine (UA) Negative (Negative); Ketones,Urine Negative (Negative); Leukocyte Esterase,Urine Large (Negative); Mucus,Urine Many /hpf; Nitrite,Urine Positive (Negative); Protein,Urine Trace (Negative); RBC,Urine <1 /hpf (0-5); Specific Gravity,Urine 1.031 (1.001-1.035); Squamous Epithelial Cell,Urine 22 /hpf (0-4); Urobilinogen,Urine <2.0 mg/dL (<2.0); WBC,Urine 131 /hpf (0-5)
[2023-11-17] MEDS ORDERED: cefTRIAXone IN SWFI 1,000 MG/10 ML SYRINGE IVP STA (04:25)
[2023-11-17 05:23] VITALS: BP 125/79; PULSE 66
--- NOTE | 2023-11-17 05:55 | CT ---
EXAMINATION TYPE: CT abdomen pelvis w con DATE OF EXAM: 11/17/2023 HISTORY: gastric sleeve patient. came on the 11/15 for throat pain/swelling. pain has now spread to amairani ek and upper gastric region. unable to eat causes a lot of pain CT DLP: 819.8mGycm Automated Exposure Control for Dose Reduction was Utilized. CONTRAST: CT scan of the abdomen and pelvis is performed with oral and with IV Contrast, patient injected with 80 mL of Isovue 300. COMPARISON: Most recent prior CT October 06, 2020 FINDINGS: LUNG BASES: No significant abnormality is appreciated. LIVER/GB: Cholecystectomy clips are redemonstrated. PANCREAS: No significant abnormality is seen. SPLEEN: No significant abnormality is seen. ADRENALS: No significant abnormality is seen. KIDNEYS: No significant abnormality is seen. BOWEL: Oral contrast only reaches level of the proximal jejunal loops in the left upper abdomen. Mild to moderate diffuse colonic fecal prominence with more moderate fecal prominence in the distal one h pen[facility]entiary transverse colon. Mild to moderate concentric wall thickening involving the proximal one half of the transverse colon UTERUS/ADNEXA: No gross abnormality seen. LYMPH NODES: No greater than 1cm abdominal or pelvic lymph nodes are appreciated. OSSEOUS STRUCTURES: No significant abnormality is seen. OTHER: Focus of heterogeneous ill-defined fluid and fat stranding with with few tiny bubbles of air a nterior abdominal wall just right of midline near the level of the umbilicus coronal image 17 for ref erence. No well-formed fluid collection or abscess is seen. IMPRESSION: 1. Overall nonobstructive bowel gas pattern. Moderate diffuse colonic fecal stasis and/or constipatio n is seen. Suspect uncomplicated focal colitis involving proximal one half of transverse colon. Corre late clinically. 2. Possible soft tissue infection or cellulitis right mid anterior abdominal level, correlate clinica lly.
== END 2023-11-17 06:28 | disposition home or self-care (01) ==
LOC: EC 02:18
DX: N39.0 Urinary tract infection, site not specified (principal); R10.12 Left upper quadrant pain; D64.9 Anemia, unspecified; F41.9 Anxiety disorder, unspecified; F12.90 Cannabis use, unspecified, uncomplicated; Z87.891 Personal history of nicotine dependence; Z79.899 Other long term (current) drug therapy; Z88.8 Allergy status to other drugs, medicaments and biological substances
CPT/HCPCS: 36415; 80053; 85025; 81001; 74177; 99284; 96374; 96375 ×2; J0696; J3490; J1170; Q9967

== ENCOUNTER 2023-11-18 06:21 | Inpatient (IN) | payer MEDICARE, OTHER ==
[2023-11-18] MEDS ORDERED: FAMOTIDINE 20 MG/2 ML VIAL IV STA (09:11)
[2023-11-18] MEDS ORDERED: SODIUM CHLORIDE 0.9% 1,000 ML IV STA (09:11)
[2023-11-18] MEDS ORDERED: ONDANSETRON 4 MG/2 ML VIAL IVP STA (09:11)
[2023-11-18] MEDS ORDERED: HYDROmorphone 1 MG/ML 1 ML SYRINGE IVP STA (09:11)
--- NOTE | 2023-11-18 09:13 | ED ---
General Adult HPI - General Chief complaint: Abdominal Pain Stated complaint: Dehydration, abd pain Time Seen by Provider: 11/18/23 08:41 Source: patient, family, RN notes reviewed, old records reviewed (CT report and labs from yesterday) Mode of arrival: wheelchair Limitations: no limitations - History of Present Illness Initial comments: Patient is a pleasant 43-year-old female presenting to the emergency department with concerns with abdominal problems. Patient did have gastric stapling done a couple years ago at [facility]. Patient has been to the hospital recently. Patient did try to go down there and waited for 8 hours emergency department and left. Patient has nausea and decreased appetite. Patient does have abdominal discomfort. No fever. Patient states oral intake has been limited for the past 2-3 days. - Related Data Home Medications Medication Instructions Recorded Confirmed Ondansetron Odt [Zofran ODT] 8 mg PO Q8HR PRN 06/10/20 11/18/23 Folic Acid 1 mg PO DAILY 11/18/23 11/18/23 Memantine [Namenda] 10 mg PO HS 11/18/23 11/18/23 Naratriptan HCl [Amerge] 2.5 mg PO DAILY PRN 11/18/23 11/18/23 Promethazine [Phenergan] 25 mg PO HS PRN 11/18/23 11/18/23 Allergies Allergy/AdvReac Type Severity Reaction Status Date / Time metoclopramide HCl Allergy Hallucinati Verified 11/18/23 11:51 [From [facility]] ons Review of Systems ROS Statement: Those systems with pertinent positive or pertinent negative responses have been documented in the HPI. ROS Other: All systems not noted in ROS Statement are negative. Constitutional: Denies: fever Eyes: Denies: eye pain ENT: Denies: ear pain Respiratory: Denies: cough Cardiovascular: Denies: chest pain Endocrine: Denies: fatigue Gastrointestinal: Reports: as per HPI, abdominal pain, nausea Genitourinary: Denies: dysuria Musculoskeletal: Denies: back pain Past Medical History Past Medical History: Fibromyalgia, Pulmonary Embolus (PE), Renal Disease Additional Past Medical History / Comment(s): kidney stones with stent, chairi malformation, tricuspid regurgitation, left ventricular hypertrophy, RA. 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, brain decompression 09/01/17, gastric sleeve Past Anesthesia/Blood Transfusion Reactions: Postoperative Nausea & Vomiting (PONV) Past Psychological History: Anxiety Smoking Status: Former smoker Past Alcohol Use History: None Reported, Rare Past Drug Use History: Marijuana - Past Family History Father Additional Family Medical History / Comment(s): born with hole in heart, valve replacements, heart attacks, pacemaker General Exam Limitations: no limitations General appearance: alert, in no apparent distress Head exam: Present: normocephalic Eye exam: Present: normal appearance Neck exam: Present: normal inspection Respiratory exam: Present: normal lung sounds bilaterally Cardiovascular Exam: Present: regular rate, normal rhythm GI/Abdominal exam: Present: soft, tenderness (Mild diffuse tenderness to palpation). Absent: distended Extremities exam: Present: normal inspection Neurological exam: Present: alert Psychiatric exam: Present: normal affect, normal mood Skin exam: Present: normal color Course Vital Signs 11/18/23 06:34 Temperature 97.7 F Pulse Rate 103 H Respiratory 18 Rate Blood Pressure 142/91 O2 Sat by Pulse 98 Oximetry Medical Decision Making - Medical Decision Making Was pt. sent in by a medical professional or institution (, PA, DIRECTOR PRISON, urgent care, hospital, or chcf...) When possible be specific @ -No Did you speak to anyone other than the patient for history (EMS, parent, family, police, friend...)? What history was obtained from this source @ -No Did you review nursing and triage notes (agree or disagree)? Why? @ -I reviewed and agree with nursing and triage notes Were old charts reviewed (outside hosp., previous admission, EMS record, old EKG, old radiological studies, urgent care reports/EKG's, chcf records)? Report findings @ -Computed tomography scan reviewed from yesterday including labs. Differential Diagnosis (chest pain, altered mental status, abdominal pain women, abdominal pain men, vaginal bleeding, weakness, fever, dyspnea, syncope, headache, dizziness, GI bleed, back pain, seizure, CVA, palpatations, mental health, musculoskeletal)? @ -Differential Abdominal Pain Women: Appendicitis, Cholecystitis, diverticulosis, ischemic bowel, pancreatitis, hepatitis, UTI, gastroenteritis, AAA, incarcerated hernia, bowel obstruction, constipation, inflammatory bowel, hepatitis, peptic ulcer disease, splenic i nfarction, perforated viscus, vulvitis, ovarian torsion, PID, kidney stone, placenta abruption, this is not meant to be an all-inclusive list EKG interpreted by me (3pts min.). @ -As above X-rays interpreted by me (1pt min.). @ -Abdominal x-ray shows no acute process CT interpreted by me (1pt min.). @ -None done U/S interpreted by me (1pt. min.). @ -None done What testing was considered but not performed or refused? (CT, X-rays, U/S, labs)? Why? @ -Consider computed tomography scan however patient had just started yesterday What meds were considered but not given or refused? Why? @ -None Did you discuss the management of the patient with other professionals (professionals i.e. , PA, DIRECTOR PRISON, lab, RT, psych nurse, social work instructor, loss prevention lead, teacher, radio electronics officer, manager case)? Give summary @ -Case discussed with Dr. Hoskins who will admit for hospital call Was smoking cessation discussed for >3mins.? @ -No Was critical care preformed (if so, how long)? @ -No Were there social determinants of health that impacted care today? How? (Homelessness, low income, unemployed, alcoholism, drug addiction, transportation, low edu. Level, literacy, decrease access to med. care, fdc, rehab)? @ -No Was there de-escalation of care discussed even if they declined (Discuss DNR or withdrawal of care, Hospice)? DNR status @ -No What co-morbidities impacted this encounter? (DM, HTN, Smoking, COPD, CAD, Cancer, CVA, ARF, Chemo, Hep., AIDS, mental health diagnosis, sleep apnea, morbid obesity)? @ -None Was patient admitted / discharged? Hospital course, mention meds given and route, prescriptions, significant lab abnormalities, going to OR and other pertinent info. @ -Patient reevaluated. Patient is feeling somewhat better. Abdomen soft with minimal epigastric tenderness. Discussion with patient regarding discharge and she does not feel comfortable with this. Patient states this is her third time in 3 days. Patient does not want to be transferred to him before [place]. Patient states every time she tries to eat and drink she vomits. Patient will be admitted. Admission orders written. Undiagnosed new problem with uncertain prognosis? @ -No Drug Therapy requiring intensive monitoring for toxicity (Heparin, Nitro, Insulin, Cardizem)? @ -No Were any procedures done? @ -No Diagnosis/symptom? @ -Abdominal pain, vomiting Acute, or Chronic, or Acute on Chronic? @ -Acute, acute Uncomplicated (without systemic symptoms) or Complicated (systemic symptoms)? @ -default Side effects of treatment? @ -No Exacerbation, Progression, or Severe Exacerbation? @ -No Poses a threat to life or bodily function? How? (Chest pain, [place], [place], pneumonia, PE, COPD, DKA, ARF, appy, cholecystitis, CVA, Diverticulitis, Homicidal, Suicidal, threat to staff... and all critical care pts) @ -No - Lab Data Result diagrams: 11/18/23 10:05 11/18/23 10:05 Lab Results 11/18/23 11/18/23 11/18/23 Range/Units 10:05 10:05 10:05 WBC 12.5 H (3.8-10.6) k/uL RBC 3.96 (3.80-5.40) m/uL Hgb 9.4 L (11.4-16.0) gm/dL Hct 30.8 L (34.0-46.0) % MCV 77.9 L (80.0-100.0) fL MCH 23.9 L (25.0-35.0) pg MCHC 30.7 L (31.0-37.0) g/dL RDW 18.7 H (11.5-15.5) % Plt Count 419 (150-450) k/uL MPV 7.6 Neutrophils % 83 % Lymphocytes % 12 % Monocytes % 3 % Eosinophils % 1 % Basophils % 0 % Neutrophils # 10.3 H (1.3-7.7) k/uL Lymphocytes # 1.5 (1.0-4.8) k/uL Monocytes # 0.4 (0-1.0) k/uL Eosinophils # 0.2 (0-0.7) k/uL Basophils # 0.0 (0-0.2) k/uL Hypochromasia Marked Anisocytosis Slight Microcytosis Slight PT 10.6 (10.0-12.5) sec INR 1.0 (<1.2) APTT 22.4 (22.0-30.0) sec Sodium 137 (137-145) mmol/L Potassium 4.4 (3.5-5.1) mmol/L Chloride 104 (98-107) mmol/L Carbon Dioxide 18 L (22-30) mmol/L Anion Gap 15 mmol/L BUN 16 (7-17) mg/dL Creatinine 0.56 (0.52-1.04) mg/dL Est GFR (CKD-EPI)AfAm >90 (>60 ml/min/1.73 sqM) Est GFR (CKD-EPI)NonAf >90 (>60 ml/min/1.73 sqM) Glucose 67 L (74-99) mg/dL Calcium 8.9 (8.4-10.2) mg/dL Total Bilirubin 0.7 (0.2-1.3) mg/dL AST 18 (14-36) U/L ALT 18 (4-34) U/L Alkaline Phosphatase 63 (38-126) U/L Total Protein 7.0 (6.3-8.2) g/dL Albumin 4.2 (3.5-5.0) g/dL Amylase 43 (30-110) U/L Lipase 33 (23-300) U/L Disposition Clinical Impression: Abdominal pain, Vomiting Disposition: ADMITTED IP TO THIS HOSP Is patient prescribed a controlled substance at d/c from ED?: No Referrals: Melina Martin [Primary Care Provider] - 1-2 days Time of Disposition: 13:02
[2023-11-18 10:17] LABS: Anisocytosis Slight; Basophils % (A) 0 %; Eosinophils # (A) 0.2 k/uL (0-0.7); Eosinophils % (A) 1 %; HCT 30.8 % (34.0-46.0); HGB 9.4 gm/dL (11.4-16.0); Hypochromasia Marked; Lymphocytes # (A) 1.5 k/uL (1.0-4.8); Lymphocytes % (A) 12 %; MCH 23.9 pg (25.0-35.0); MCHC 30.7 g/dL (31.0-37.0); MCV 77.9 fL (80.0-100.0); Mean Platelet Volume 7.6; Microcytosis Slight; Monocytes # (A) 0.4 k/uL (0-1.0); Monocytes % (A) 3 %; Neutrophils # (A) 10.3 k/uL (1.3-7.7); Neutrophils % (A) 83 %; Platelet Count 419 k/uL (150-450); RBC 3.96 m/uL (3.80-5.40); RDW 18.7 % (11.5-15.5); WBC 12.5 k/uL (3.8-10.6)
[2023-11-18 10:40] LABS: ALT 18 U/L (4-34); AST 18 U/L (14-36); African American GFR (CKD) >90 (>60 ml/min/1.73 sqM); Albumin 4.2 g/dL (3.5-5.0); Alkaline Phosphatase 63 U/L (38-126); Amylase 43 U/L (30-110); Anion Gap 15 mmol/L; Blood Urea Nitrogen 16 mg/dL (7-17); Calcium 8.9 mg/dL (8.4-10.2); Carbon Dioxide 18 mmol/L (22-30); Chloride 104 mmol/L (98-107); Glucose 67 mg/dL (74-99); Lipase 33 U/L (23-300); Non-African American GFR(CKD) >90 (>60 ml/min/1.73 sqM); Potassium 4.4 mmol/L (3.5-5.1); Sodium 137 mmol/L (137-145); Total Bilirubin 0.7 mg/dL (0.2-1.3)
[2023-11-18 10:51] LABS: Partial Thromboplastin Time 22.4 sec (22.0-30.0); Prothrombin Time 10.6 sec (10.0-12.5)
--- NOTE | 2023-11-18 11:50 | XR ---
EXAMINATION TYPE: XR KUB DATE OF EXAM: 11/18/2023 COMPARISON: 11/22/2018 INDICATION: Abdomen pain TECHNIQUE: Single view abdomen upright view FINDINGS: There is a normal bowel gas pattern. Fecal debris is in the ascending colon region. Psoas margins are normal. No organomegaly is present. Post cholecystectomy clips are present. IMPRESSION: 1. Unremarkable Abdomen
[2023-11-18] MEDS ORDERED: NALOXONE 0.4 MG/ML 1 ML VIAL IV PRN (13:02)
[2023-11-18] MEDS: SODIUM CHLORIDE 0.9% 1,000 ML IV SCH ×2 (13:19→21:15)
[2023-11-18] MEDS ORDERED: HYDROmorphone 0.5 MG/0.5 ML SYRINGE IVP STA (13:57)
--- NOTE | 2023-11-18 14:19 | P.HPIM ---
History of Present Illness H&P Date: 11/18/23 History of present illness; patient is a 43-year-old lady with past medical hi story significant for gastric sleeve,Budd Chiari malformation, who presented to hospital for worsening abdominal pain and difficulty in swallowing. Patient was seen in the ER a day ago with similar complaints. Patient stated 2 weeks ago she started noticing that she was having a hard time swallowing. Difficulty in swallowing was present for both liquids and solids. Following that she started noticing that she was having epigastric pain which is intermittent, worsened by eating. Patient started noticing nausea and vomiting. There was local lethargy or weakness. There was no complain of fever or chills. Patient denies any chest pain or shortness of breath. Because of these symptoms symptoms, patient was seen in the ER a day ago, CT abdominal and that time showed overall nonobstructive bowel gas pattern, moderate diffuse colonic fecal stasis, suspect uncomplicated focal colitis involving the proximal half of transverse colon. At that time patient also found was UTI and was discharged on antibiotics and stool softeners. Patient stated that she continued to have abdominal pain once he was discharged and was also having nausea and vomiting so she decided to come back to the ER. Initial lab work done in the ER showed WBC 12.5, hemoglobin 9.4, platelet count 419, sodium 137, potassium 4.4, BUN 16, creatinine 0.56 Patient admitted to internal medicine service REVIEW OF SYSTEMS: CONSTITUTIONAL: No fever, no malaise, no fatigue. HEENT: No recent visual problems or hearing problems. Denied any sore throat. CARDIOVASCULAR: No chest pain, orthopnea, PND, no palpitations, no syncope. PULMONARY: No shortness of breath, no cough, no hemoptysis. GASTROINTESTINAL: As mentioned in HPI NEUROLOGICAL: No headaches, no weakness, no numbness. HEMATOLOGICAL: Denies any bleeding or petechiae. GENITOURINARY: Denies any burning micturition, frequency, or urgency. MUSCULOSKELETAL/RHEUMATOLOGICAL: Denies any joint pain, swelling, or any muscle pain. ENDOCRINE: Denies any polyuria or polydipsia. The rest of the 14-point review of systems is negative. PHYSICAL EXAMINATION: GENERAL: The patient is alert and oriented x3, looks in distress. HEENT: Pupils are round and equally reacting to light. EOMI. No scleral icterus. No conjunctival pallor. Normocephalic, atraumatic. No pharyngeal erythema. No thyromegaly. CARDIOVASCULAR: S1 and S2 present. No murmurs, rubs, or gallops. PULMONARY: Chest is clear to auscultation, no wheezing or crackles. ABDOMEN: Soft, nontender, nondistended, normoactive bowel sounds. No palpable organomegaly. MUSCULOSKELETAL: No joint swelling or deformity. EXTREMITIES: No cyanosis, clubbing, or pedal edema. NEUROLOGICAL: Gross neurological examination did not reveal any focal deficits. SKIN: No rashes. Assessment and plan Abdominal pain Nausea and vomiting UTI History of gastric sleeve History of Budd Chiari malformation Monitor vital signs Monitor CBC Monitor CMP Continue telemetry monitoring Continue antiemetics Continue IV Protonix Continue IV fluids Start IV Rocephin for recent UTI for which patient was discharged on oral antibiotics but she never started it Consult general surgery Labs and medication were reviewed.. Continue same treatment. Continue with symptomatic treatment. Resume home medication. Monitor labs and vitals. DVT and GI prophylaxis. Further recommendations as per clinical course of the pat ient Dictation was produced using Smart [employer]ube dictation software. please excuse any grammatical, word or spelling errors. Past Medical History Past Medical History: Fibromyalgia, Pulmonary Embolus (PE), Renal Disease Additional Past Medical History / Comment(s): kidney stones with stent, chairi malformation, tricuspid regurgitation, left ventricular hypertrophy, RA. 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, brain decompression 09/01/17, gastric sleeve Past Anesthesia/Blood Transfusion Reactions: Postoperative Nausea & Vomiting (PONV) Past Psychological History: Anxiety Smoking Status: Former smoker Past Alcohol Use History: None Reported, Rare Past Drug Use History: Marijuana - Past Family History Father Additional Family Medical History / Comment(s): born with hole in heart, valve replacements, heart attacks, pacemaker Medications and Allergies Home Medications Medication Instructions Recorded Confirmed Type Ondansetron Odt [Zofran ODT] 8 mg PO Q8HR PRN 06/10/20 11/18/23 History Folic Acid 1 mg PO DAILY 11/18/23 11/18/23 History Memantine [Namenda] 10 mg PO HS 11/18/23 11/18/23 History Naratriptan HCl [Amerge] 2.5 mg PO DAILY PRN 11/18/23 11/18/23 History Promethazine [Phenergan] 25 mg PO HS PRN 11/18/23 11/18/23 History Allergies Allergy/AdvReac Type Severity Reaction Status Date / Time metoclopramide HCl Allergy Hallucinati Verified 11/18/23 11:51 [From Reglan] ons Physical Exam Vitals: Vital Signs Temp Pulse Resp BP Pulse Ox 11/18/23 13:00 89 18 148/87 99 11/18/23 06:34 97.7 F 103 H 18 142/91 98 Intake and Output 11/17/23 11/18/23 11/18/23 22:59 06:59 14:59 Other: Weight 84.368 kg Results CBC & Chem 7: 11/18/23 10:05 11/18/23 10:05 Labs: Abnormal Lab Results - Last 24 Hours (Table) 11/18/23 11/18/23 Range/Units 10:05 10:05 WBC 12.5 H (3.8-10.6) k/uL Hgb 9.4 L (11.4-16.0) gm/dL Hct 30.8 L (34.0-46.0) % MCV 77.9 L (80.0-100.0) fL MCH 23.9 L (25.0-35.0) pg MCHC 30.7 L (31.0-37.0) g/dL RDW 18.7 H (11.5-15.5) % Neutrophils # 10.3 H (1.3-7.7) k/uL Carbon Dioxide 18 L (22-30) mmol/L Glucose 67 L (74-99) mg/dL
[2023-11-18] MEDS: MAG HYDROX/AL HYDROX/SIMETH 30 ML CUP PO SCH ×2 (17:04→23:25)
[2023-11-18] MEDS: ONDANSETRON 4 MG/2 ML VIAL IVP PRN (23:17)
[2023-11-19] MEDS ORDERED: MORPHINE SULFATE 2 MG/ML SYRINGE IVP STA (01:44)
[2023-11-19] MEDS: SODIUM CHLORIDE 0.9% 1,000 ML IV SCH ×3 (05:00→20:10)
[2023-11-19 07:12] LABS: Anisocytosis Slight; Basophils # (A) 0.1 k/uL (0-0.2); Basophils % (A) 1 %; Eosinophils # (A) 0.4 k/uL (0-0.7); Eosinophils % (A) 4 %; HGB 8.6 gm/dL (11.4-16.0); Hypochromasia Marked; Lymphocytes # (A) 2.5 k/uL (1.0-4.8); Lymphocytes % (A) 28 %; MCH 23.9 pg (25.0-35.0); MCHC 29.7 g/dL (31.0-37.0); MCV 80.3 fL (80.0-100.0); Mean Platelet Volume 7.3; Microcytosis Slight; Monocytes # (A) 0.3 k/uL (0-1.0); Monocytes % (A) 4 %; Neutrophils # (A) 5.7 k/uL (1.3-7.7); Neutrophils % (A) 62 %; Platelet Count 341 k/uL (150-450); RBC 3.61 m/uL (3.80-5.40); RDW 18.8 % (11.5-15.5); WBC 9.2 k/uL (3.8-10.6)
[2023-11-19 07:30] LABS: ALT 16 U/L (4-34); AST 19 U/L (14-36); African American GFR (CKD) >90 (>60 ml/min/1.73 sqM); Albumin 3.6 g/dL (3.5-5.0); Alkaline Phosphatase 58 U/L (38-126); Anion Gap 14 mmol/L; Blood Urea Nitrogen 14 mg/dL (7-17); Calcium 8.4 mg/dL (8.4-10.2); Carbon Dioxide 16 mmol/L (22-30); Chloride 108 mmol/L (98-107); Glucose 51 mg/dL (74-99); Non-African American GFR(CKD) >90 (>60 ml/min/1.73 sqM); Potassium 4.3 mmol/L (3.5-5.1); Sodium 138 mmol/L (137-145); Total Bilirubin 0.5 mg/dL (0.2-1.3); Total Protein 6.1 g/dL (6.3-8.2)
[2023-11-19] MEDS: PANTOPRAZOLE 40 MG/10 ML VIAL IV SCH (08:11)
[2023-11-19] MEDS: MAG HYDROX/AL HYDROX/SIMETH 30 ML CUP PO SCH ×4 (08:11→21:06)
[2023-11-19] MEDS: HYDROmorphone 1 MG/ML 1 ML SYRINGE IVP PRN ×4 (10:22→22:34)
--- NOTE | 2023-11-19 10:43 | P.GSCN ---
History of Present Illness Consult date: 11/19/23 History of present illness: CHIEF COMPLAINT: Abdominal pain HISTORY OF PRESENT ILLNESS: This is a 43-year-old female with a known history of sleeve gastrectomy in March 2022 out of [facility]. Patient reports that she's been dealing with abdominal pain for about 5 days. She had noted about 3 weeks ago some difficulty with his swallowing. And the discomfort moved down the esophagus and into the upper mid abdomen. She reports decreased appetite. Denies any nausea or vomiting. Last bowel movement was about 3 days ago. Her pain is across the mid upper abdomen. Patient initially came to the hospital on November 17 was discharged with UTI and sent with antibiotics. Patient reports due to her nausea and difficulty swallowing she's been unable to take the pills. Her last EGD was in 2021 prior to her surgery and she reports it is negative. She had a colonoscopy 10 years ago with no significant findings. She denies a prior history of colitis. Patient's computed tomography scan abdomen and pelvis had shown moderate diffuse colonic fecal stasis and/or constipation. Suspect uncomplicated focal colitis involving proximal one half of transverse colon. Patient reports feeling dehydrated. Patient seen and examined with Dr. Sanchez PAST MEDICAL HISTORY: Fibromyalgia, Pulmonary Embolus (PE), kidney stones stent,chairi malformation, tricuspid regurgitation, left ventricular hypertrophy, RA. 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 REVIEW OF SYSTEMS: CONSTITUTIONAL: Denies fever or chills. HEENT: Denies blurred vision, vision changes, or eye pain. Denies hemoptysis CARDIOVASCULAR: Denies chest pain or pressure. RESPIRATORY: No shortness of breath. GASTROINTESTINAL: See HPI for pertinent findings HEMATOLOGIC: Denies bleeding disorders. GENITOURINARY: Denies any blood in urine or increased urinary frequency. SKIN: Denies pruitis. Denies rash. PHYSICAL EXAM: VITAL SIGNS: Reviewed GENERAL: Well-developed in no acute distress. HEENT: No sclera icterus. Extraocular movements grossly intact. Moist buccal mucosa. Head is atraumatic, normocephalic. No nasal drainage. ABDOMEN: Soft. Nondistended. tenderness with palpation across the upper abdomen. No evidence of erythema NEUROLOGIC: Alert and oriented. Cranial nerves II through XII grossly intact. LABORATORY DATA: WBC 12.5 down to 9.2 Hgb 8.6 platelets 341 Sodium 138 potassium 4.3 creatinine 0.63 LFTs normal lipase 33 IMAGING: Computed tomography scan abdomen and pelvis overall nonobstructive bowel gas pattern. Moderate diffuse colonic fecal stasis and/or constipation is seen. Suspect uncomplicated focal colitis involving proximal one half of transverse colon. Possible soft tissue infection or cellulitis right mid anterior abdominal wall correlate clinically KUB x-ray unremarkable. Fecal debris in the ascending colon. ASSESSMENT: 1. Abdominal pain 2. Dysphagia 3. Suspected colitis of the transverse colon noted on computed tomography scan 4. Constipation PLAN: -Plan for EGD and colonoscopy on 11/22/[address] Sanchez -Continue clear liquid diet -Add IV Dilaudid 1 mg every 3 hours as needed for pain -Add Ensure clear protein supplement Thank you for this consultation Physician Mechanical Inspector note has been reviewed by physician. Signing provider agrees with the documented findings, assessment, and plan of care. Past Medical History Past Medical History: Fibromyalgia, Pulmonary Embolus (PE), Renal Disease Additional Past Medical History / Comment(s): kidney stones with stent, chairi malformation, tricuspid regurgitation, left ventricular hypertrophy, RA. 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, brain decompression 09/01/17, gastric sleeve Past Anesthesia/Blood Transfusion Reactions: Postoperative Nausea & Vomiting (PONV) Past Psychological History: Anxiety Smoking Status: Former smoker Past Alcohol Use History: None Reported, Rare Past Drug Use History: Marijuana - Past Family History Father Additional Family Medical History / Comment(s): born with hole in heart, valve replacements, heart attacks, pacemaker Medications and Allergies Home Medications Medication Instructions Recorded Confirmed Type Ondansetron Odt [Zofran ODT] 8 mg PO Q8HR PRN 06/10/20 11/18/23 History Folic Acid 1 mg PO DAILY 11/18/23 11/18/23 History Memantine [Namenda] 10 mg PO HS 11/18/23 11/18/23 History Naratriptan HCl [Amerge] 2.5 mg PO DAILY PRN 11/18/23 11/18/23 History Promethazine [Phenergan] 25 mg PO HS PRN 11/18/23 11/18/23 History Allergies Allergy/AdvReac Type Severity Reaction Status Date / Time metoclopramide HCl Allergy Hallucinati Verified 11/18/23 11:51 [From Reglan] ons Surgical - Exam Vital Signs Temp Pulse Resp BP Pulse Ox 97.7 F 103 H 18 142/91 98 11/18/23 06:34 11/18/23 06:34 11/18/23 06:34 11/18/23 06:34 11/18/23 06:34 Results - Labs 11/19/23 06:33 11/19/23 06:33 Abnormal Lab Results - Last 24 Hours (Table) 11/18/23 11/18/23 11/19/23 Range/Units 10:05 10:05 06:33 WBC 12.5 H (3.8-10.6) k/uL RBC 3.61 L (3.80-5.40) m/uL Hgb 9.4 L 8.6 L (11.4-16.0) gm/dL Hct 30.8 L 29.0 L (34.0-46.0) % MCV 77.9 L (80.0-100.0) fL MCH 23.9 L 23.9 L (25.0-35.0) pg MCHC 30.7 L 29.7 L (31.0-37.0) g/dL RDW 18.7 H 18.8 H (11.5-15.5) % Neutrophils # 10.3 H (1.3-7.7) k/uL Chloride (98-107) mmol/L Carbon Dioxide 18 L (22-30) mmol/L Glucose 67 L (74-99) mg/dL Total Protein (6.3-8.2) g/dL 11/19/23 Range/Units 06:33 WBC (3.8-10.6) k/uL RBC (3.80-5.40) m/uL Hgb (11.4-16.0) gm/dL Hct (34.0-46.0) % MCV (80.0-100.0) fL MCH (25.0-35.0) pg MCHC (31.0-37.0) g/dL RDW (11.5-15.5) % Neutrophils # (1.3-7.7) k/uL Chloride 108 H (98-107) mmol/L Carbon Dioxide 16 L (22-30) mmol/L Glucose 51 L (74-99) mg/dL Total Protein 6.1 L (6.3-8.2) g/dL Diabetes panel 11/18/23 11/19/23 Range/Units 10:05 06:33 Sodium 137 138 (137-145) mmol/L Potassium 4.4 4.3 (3.5-5.1) mmol/L Chloride 104 108 H (98-107) mmol/L Carbon Dioxide 18 L 16 L (22-30) mmol/L BUN 16 14 (7-17) mg/dL Creatinine 0.56 0.63 (0.52-1.04) mg/dL Glucose 67 L 51 L (74-99) mg/dL Calcium 8.9 8.4 (8.4-10.2) mg/dL AST 18 19 (14-36) U/L ALT 18 16 (4-34) U/L Alkaline Phosphatase 63 58 (38-126) U/L Total Protein 7.0 6.1 L (6.3-8.2) g/dL Albumin 4.2 3.6 (3.5-5.0) g/dL Calcium panel 11/18/23 11/19/23 Range/Units 10:05 06:33 Calcium 8.9 8.4 (8.4-10.2) mg/dL Albumin 4.2 3.6 (3.5-5.0) g/dL Pituitary panel 11/18/23 11/19/23 Range/Units 10:05 06:33 Sodium 137 138 (137-145) mmol/L Potassium 4.4 4.3 (3.5-5.1) mmol/L Chloride 104 108 H (98-107) mmol/L Carbon Dioxide 18 L 16 L (22-30) mmol/L BUN 16 14 (7-17) mg/dL Creatinine 0.56 0.63 (0.52-1.04) mg/dL Glucose 67 L 51 L (74-99) mg/dL Calcium 8.9 8.4 (8.4-10.2) mg/dL Adrenal panel 11/18/23 11/19/23 Range/Units 10:05 06:33 Sodium 137 138 (137-145) mmol/L Potassium 4.4 4.3 (3.5-5.1) mmol/L Chloride 104 108 H (98-107) mmol/L Carbon Dioxide 18 L 16 L (22-30) mmol/L BUN 16 14 (7-17) mg/dL Creatinine 0.56 0.63 (0.52-1.04) mg/dL Glucose 67 L 51 L (74-99) mg/dL Calcium 8.9 8.4 (8.4-10.2) mg/dL Total Bilirubin 0.7 0.5 (0.2-1.3) mg/dL AST 18 19 (14-36) U/L ALT 18 16 (4-34) U/L Alkaline Phosphatase 63 58 (38-126) U/L Total Protein 7.0 6.1 L (6.3-8.2) g/dL Albumin 4.2 3.6 (3.5-5.0) g/dL
[2023-11-19] MEDS: ONDANSETRON 4 MG/2 ML VIAL IVP PRN ×2 (14:26→21:40)
--- NOTE | 2023-11-19 15:48 | P.PN ---
Subjective Progress Note Date: 11/19/23 43-year-old lady with past medical history significant for gastric sleeve,Budd Chiari malformation, who presented to hospital for worsening abdominal pain and difficulty in swallowing. Patient was seen in the ER a day ago with similar complaints. Patient stated 2 weeks ago she started noticing that she was having a hard time swallowing. Difficulty in swallowing was present for both liquids and solids. Following that she started noticing that she was having epigastric pain which is intermittent, worsened by eating. Patient started noticing nausea and vomiting. There was local lethargy or weakness. There was no complain of fever or chills. Patient denies any chest pain or shortness of breath. Because of these symptoms symptoms, patient was seen in the ER a day ago, CT abdominal and that time showed overall nonobstructive bowel gas pattern, moderate diffuse colonic fecal stasis, suspect uncomplicated focal colitis involving the proximal half of transverse colon. At that time patient also found was UTI and was discharged on antibiotics and stool softeners. Patient stated that she co ntinued to have abdominal pain once he was discharged and was also having nausea and vomiting so she decided to come back to the ER. Initial lab work done in the ER showed WBC 12.5, hemoglobin 9.4, platelet count 419, sodium 137, potassium 4.4, BUN 16, creatinine 0.56 Objective - Vital Signs Vital signs: Vital Signs Temp 97.7 F 11/19/23 07:56 Pulse 56 L 11/19/23 07:56 Resp 16 11/19/23 07:56 BP 111/68 11/19/23 07:56 Pulse Ox 97 11/19/23 07:56 FiO2 Intake & Output 11/18/23 11/19/23 11/19/23 18:59 06:59 18:59 Intake Total 1000 Balance 1000 Weight 84.368 kg Intake: Intake, IV Titration 1000 Amount Sodium Chloride 0.9% 1, 1000 000 ml @ 130 mls/hr IV . Q7H42M [facility] Rx#:[id number] Other: Voiding Method Toilet # Voids 2 - Exam GENERAL: The patient is alert and oriented x3, looks in distress. HEENT: Pupils are round and equally reacting to light. EOMI. No scleral icterus. No conjunctival pallor. Normocephalic, atraumatic. No pharyngeal erythema. No thyromegaly. CARDIOVASCULAR: S1 and S2 present. No murmurs, rubs, or gallops. PULMONARY: Chest is clear to auscultation, no wheezing or crackles. ABDOMEN: Soft, nontender, nondistended, normoactive bowel sounds. No palpable organomegaly. MUSCULOSKELETAL: No joint swelling or deformity. EXTREMITIES: No cyanosis, clubbing, or pedal edema. NEUROLOGICAL: Gross neurological examination did not reveal any focal deficits. SKIN: No rashes. 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 Continue same treatment. Continue with symptomatic treatment. Resume home medication. Monitor labs and vitals. DVT and GI prophylaxis. Further recommendations as per clinical course of the patient
[2023-11-19 20:28] LABS: Glucose,Whole Blood 85 mg/dL (70-110)
[2023-11-20] MEDS: SODIUM CHLORIDE 0.9% 1,000 ML IV SCH ×3 (01:44→20:19)
[2023-11-20] MEDS: HYDROmorphone 1 MG/ML 1 ML SYRINGE IVP PRN ×6 (01:44→21:34)
[2023-11-20] MEDS: ONDANSETRON 4 MG/2 ML VIAL IVP PRN ×3 (05:04→21:34)
[2023-11-20] MEDS: MAG HYDROX/AL HYDROX/SIMETH 30 ML CUP PO SCH ×4 (07:59→21:38)
[2023-11-20] MEDS: PANTOPRAZOLE 40 MG/10 ML VIAL IV SCH (08:00)
--- NOTE | 2023-11-20 20:14 | P.PN ---
Subjective Progress Note Date: 11/20/23 43-year-old lady with past medical history significant for gastric sleeve,Budd Chiari malformation, who presented to hospital for worsening abdominal pain and difficulty in swallowing. Patient was seen in the ER a day ago with similar complaints. Patient stated 2 weeks ago she started noticing that she was having a hard time swallowing. Difficulty in swallowing was present for both liquids and solids. Following that she started noticing that she was having epigastric pain which is intermittent, worsened by eating. Patient started noticing nausea and vomiting. There was local lethargy or weakness. There was no complain of fever or chills. Patient denies any chest pain or shortness of breath. Because of these symptoms symptoms, patient was seen in the ER a day ago, CT abdominal and that time showed overall nonobstructive bowel gas pattern, moderate diffuse colonic fecal stasis, suspect uncomplicated focal colitis involving the proximal half of transverse colon. At that time patient also found was UTI and was discharged on antibiotics and stool softeners. Patient stated that she co ntinued to have abdominal pain once he was discharged and was also having nausea and vomiting so she decided to come back to the ER. Initial lab work done in the ER showed WBC 12.5, hemoglobin 9.4, platelet count 419, sodium 137, potassium 4.4, BUN 16, creatinine 0.56 11/20/2023 Patient is seen and evaluated in room at bedside; reports fair pain control with pain medication Vital signs are reviewed and stable with temperature of 98.3, pulse 60 respirations 16 and blood pressure 104/67; O2 saturation 97% Patient has been evaluated by surgery for suspected colitis of transverse colon noted on CT of the abdomen -- Plan for EGD and colonoscopy on Wednesday -- Patient remains on IV Rocephin for untreated UTI Objective - Vital Signs Vital signs: Vital Signs Temp 98.3 F 11/20/23 07:35 Pulse 60 11/20/23 07:35 Resp 16 11/20/23 07:35 BP 104/67 11/20/23 07:35 Pulse Ox 97 11/20/23 07:35 FiO2 Intake & Output 11/19/23 11/20/23 11/20/23 18:59 06:59 18:59 Intake Total 590 Balance 590 Intake: Intake, IV Titration 390 Amount Sodium Chloride 0.9% 1, 390 000 ml @ 130 mls/hr IV . Q7H42M [facility] Rx#:[id number] Oral 200 Other: Voiding Method Toilet Toilet # Voids 1 - Exam GENERAL: The patient is alert and oriented x3, looks in distress. HEENT: Pupils are round and equally reacting to light. EOMI. No scleral icterus. No conjunctival pallor. Normocephalic, atraumatic. No pharyngeal erythema. No thyromegaly. CARDIOVASCULAR: S1 and S2 present. No murmurs, rubs, or gallops. PULMONARY: Chest is clear to auscultation, no wheezing or crackles. ABDOMEN: Soft, nontender, nondistended, normoactive bowel sounds. No palpable organomegaly. MUSCULOSKELETAL: No joint swelling or deformity. EXTREMITIES: No cyanosis, clubbing, or pedal edema. NEUROLOGICAL: Gross neurological examination did not reveal any focal deficits. SKIN: No rashes. 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 Continue same treatment. Continue with symptomatic treatment. Resume home medication. Monitor labs and vitals. DVT and GI prophylaxis. Further recommendations as per clinical course of the patient
[2023-11-20] MEDS: MEMANTINE 10 MG TAB PO SCH (21:34)
[2023-11-21] MEDS: HYDROmorphone 1 MG/ML 1 ML SYRINGE IVP PRN ×7 (01:36→22:43)
[2023-11-21] MEDS: SODIUM CHLORIDE 0.9% 1,000 ML IV SCH ×3 (01:36→17:28)
[2023-11-21] MEDS: ONDANSETRON 4 MG/2 ML VIAL IVP PRN ×2 (06:42→20:40)
--- NOTE | 2023-11-21 06:57 | P.PN ---
Subjective Progress Note Date: 11/21/23 43-year-old lady with past medical history significant for gastric sleeve,Budd Chiari malformation, who presented to hospital for worsening abdominal pain and difficulty in swallowing. Patient was seen in the ER a day ago with similar complaints. Patient stated 2 weeks ago she started noticing that she was having a hard time swallowing. Difficulty in swallowing was present for both liquids and solids. Following that she started noticing that she was having epigastric pain which is intermittent, worsened by eating. Patient started noticing nausea and vomiting. There was local lethargy or weakness. There was no complain of fever or chills. Patient denies any chest pain or shortness of breath. Because of these symptoms symptoms, patient was seen in the ER a day ago, CT abdominal and that time showed overall nonobstructive bowel gas pattern, moderate diffuse colonic fecal stasis, suspect uncomplicated focal colitis involving the proximal half of transverse colon. At that time patient also found was UTI and was discharged on antibiotics and stool softeners. Patient stated that she co ntinued to have abdominal pain once he was discharged and was also having nausea and vomiting so she decided to come back to the ER. Initial lab work done in the ER showed WBC 12.5, hemoglobin 9.4, platelet count 419, sodium 137, potassium 4.4, BUN 16, creatinine 0.56 11/20/2023 Patient is seen and evaluated in room at bedside; reports fair pain control with pain medication Vital signs are reviewed and stable with temperature of 98.3, pulse 60 respirations 16 and blood pressure 104/67; O2 saturation 97% Patient has been evaluated by surgery for suspected colitis of transverse colon noted on CT of the abdomen -- Plan for EGD and colonoscopy on Wednesday -- Patient remains on IV Rocephin for untreated UTI 11/21/2023 Patient is seen and evaluated, no specific complaints reported; abdominal pain controlled with pain medications Vital signs are reviewed and are stable with a temperature of 98.2, pulse 73 to respirations 16, blood pressure of 100/66 and O2 saturation 94% on room air Patient remains on IV Dilaudid for pain control; general surgery is following with plans for EGD/colonoscopy tomorrow morning for evaluation of abdominal pain -- Patient remains on ceftriaxone 1 g IV daily for partially treated UTI Objective - Vital Signs Vital signs: Vital Signs Temp 98.2 F 11/20/23 13:39 Pulse 73 11/20/23 13:39 Resp 16 11/20/23 13:39 BP 100/66 11/20/23 13:39 Pulse Ox 94 L 11/20/23 13:39 FiO2 Intake & Output 11/20/23 11/20/23 11/21/23 06:59 18:59 06:59 Intake Total 590 590 Balance 590 590 Intake: Intake, IV Titration 390 390 Amount Sodium Chloride 0.9% 1, 390 390 000 ml @ 130 mls/hr IV . Q7H42M [facility] Rx#:[id number] Oral 200 200 Other: Voiding Method Toilet Toilet Toilet # Voids 1 2 - Exam GENERAL: The patient is alert and oriented x3, looks in distress. HEENT: Pupils are round and equally reacting to light. EOMI. No scleral icterus. No conjunctival pallor. Normocephalic, atraumatic. No pharyngeal erythema. No thyromegaly. CARDIOVASCULAR: S1 and S2 present. No murmurs, rubs, or gallops. PULMONARY: Chest is clear to auscultation, no wheezing or crackles. ABDOMEN: Soft, nontender, nondistended, normoactive bowel sounds. No palpable organomegaly. MUSCULOSKELETAL: No joint swelling or deformity. EXTREMITIES: No cyanosis, clubbing, or pedal edema. NEUROLOGICAL: Gross neurological examination did not reveal any focal deficits. SKIN: No rashes. 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 Continue same treatment. Continue with symptomatic treatment. Resume home medication. Monitor labs and vitals. DVT and GI prophylaxis. Further recommendations as per clinical course of the patient
[2023-11-21] MEDS: PANTOPRAZOLE 40 MG/10 ML VIAL IV SCH (08:25)
[2023-11-21] MEDS: MAG HYDROX/AL HYDROX/SIMETH 30 ML CUP PO SCH ×5 (08:25→20:40)
[2023-11-21] MEDS: FOLIC ACID 1 MG TAB PO SCH (08:25)
[2023-11-21] MEDS ORDERED: PEG 3350 (236 GM/BTL) + LYTES 4,000 ML BOTTLE PO ONE (09:00)
[2023-11-21 09:54] LABS: Blood Urea Nitrogen 3.6 mg/dL (9.0-27.0); Calcium 8.2 mg/dL (8.7-10.3); Chloride 108 mmol/L (96-109); Glucose 74 mg/dL (70-110); Potassium 4.1 mmol/L (3.5-5.5); Sodium 141 mmol/L (135-145)
[2023-11-21 10:00] LABS: Basophils # (A) 0.04 X 10*3/uL (0.00-0.10); Basophils % (A) 0.6 %; Eosinophils # (A) 0.23 X 10*3/uL (0.04-0.35); Eosinophils % (A) 3.5 %; HCT 25.6 % (37.2-46.3); HGB 7.2 g/dL (12.0-15.0); Lymphocytes # (A) 1.89 X 10*3/uL (0.90-5.00); Lymphocytes % (A) 28.7 %; MCH 22.3 pg (27.0-32.0); MCHC 28.1 g/dL (32.0-37.0); MCV 79.3 FL (80.0-97.0); Mean Platelet Volume 10.8 FL (9.5-12.2); Monocytes # (A) 0.53 X 10*3/uL (0.20-1.00); Monocytes % (A) 8.1 %; NRBC Per 100 WBC 0 X 10*3/uL (0.00-0.01); Neutrophils # (A) 3.86 X 10*3/uL (1.80-7.70); Neutrophils % (A) 58.6 %; Platelet Count 346 X 10*3/uL (140-440); RBC 3.23 X 10*6/uL (4.10-5.20); RDW 19.8 % (11.5-14.5); WBC 6.58 X 10*3/uL (4.50-10.00)
--- NOTE | 2023-11-21 11:08 | P.PN ---
Subjective Progress Note Date: 11/21/23 She still has complaints of abdominal pain. She is scheduled for EGD colonoscopy tomorrow. Patient's CAT scan suggesting transverse colitis. On exam vital signs are still. Abdomen soft there is mild tenderness throughout. Patient will attempt to her bowel prep today. We will plan on EGD colonoscopy and the antrum. Objective - Vital Signs Vital signs: Vital Signs Temp 97.9 F 11/21/23 07:32 Pulse 70 11/21/23 07:32 Resp 16 11/21/23 07:32 BP 106/69 11/21/23 07:32 Pulse Ox 96 11/21/23 07:32 FiO2 Intake & Output 11/20/23 11/21/23 11/21/23 18:59 06:59 18:59 Intake Total 1960 Balance 1959 Intake: Intake, IV Titration 1560 Amount Sodium Chloride 0.9% 1, 1560 000 ml @ 130 mls/hr IV . Q7H42M [facility] Rx#:[id number] Oral 400 Other: Voiding Method Toilet Toilet Toilet # Voids 2 - Labs CBC & Chem 7: 11/21/23 06:34 11/21/23 06:27 Labs: Abnormal Lab Results - Last 24 Hours (Table) 11/21/23 11/21/23 Range/Units 06:27 06:34 RBC 3.23 L (4.10-5.20) X 10*6/uL Hgb 7.2 L (12.0-15.0) g/dL Hct 25.6 L (37.2-46.3) % MCV 79.3 L (80.0-97.0) FL MCH 22.3 L (27.0-32.0) pg MCHC 28.1 L (32.0-37.0) g/dL RDW 19.8 H (11.5-14.5) % BUN 3.6 L (9.0-27.0) mg/dL Creatinine 0.5 L (0.6-1.5) mg/dL BUN/Creatinine Ratio 7.20 L (12.00-20.00) Ratio Calcium 8.2 L (8.7-10.3) mg/dL
[2023-11-21] MEDS: MEMANTINE 10 MG TAB PO SCH (20:40)
[2023-11-22] MEDS: HYDROmorphone 1 MG/ML 1 ML SYRINGE IVP PRN ×7 (01:54→20:32)
[2023-11-22] MEDS: SODIUM CHLORIDE 0.9% 1,000 ML IV SCH ×3 (01:56→17:26)
[2023-11-22] MEDS: ONDANSETRON 4 MG/2 ML VIAL IVP PRN (05:08)
[2023-11-22 07:02] LABS: Anisocytosis Slight; HGB 7.8 gm/dL (11.4-16.0); Hypochromasia Marked; MCH 23.9 pg (25.0-35.0); MCHC 30.1 g/dL (31.0-37.0); MCV 79.5 fL (80.0-100.0); Mean Platelet Volume 7.5; Microcytosis Slight; Platelet Count 320 k/uL (150-450); RBC 3.27 m/uL (3.80-5.40); RDW 19.7 % (11.5-15.5); WBC 6.3 k/uL (3.8-10.6)
[2023-11-22 07:13] LABS: African American GFR (CKD) >90 (>60 ml/min/1.73 sqM); Anion Gap 8 mmol/L; Blood Urea Nitrogen <2 mg/dL (7-17); Calcium 8.4 mg/dL (8.4-10.2); Carbon Dioxide 25 mmol/L (22-30); Chloride 107 mmol/L (98-107); Glucose 82 mg/dL (74-99); Non-African American GFR(CKD) >90 (>60 ml/min/1.73 sqM); Potassium 4.2 mmol/L (3.5-5.1); Sodium 140 mmol/L (137-145)
[2023-11-22] MEDS: PANTOPRAZOLE 40 MG/10 ML VIAL IV SCH (08:24)
[2023-11-22] MEDS: MAG HYDROX/AL HYDROX/SIMETH 30 ML CUP PO SCH ×4 (08:33→20:30)
[2023-11-22] MEDS: FOLIC ACID 1 MG TAB PO SCH (08:33)
--- NOTE | 2023-11-22 13:23 | P.PN ---
Subjective Progress Note Date: 11/22/23 CHIEF COMPLAINT: Abdominal pain HISTORY OF PRESENT ILLNESS: No new complaints. Still reports abdominal pain. Patient scheduled for EGD and colonoscopy today. Afebrile. Vitals stable. WBC 6. 3HB7.8 sodium 140 potassium 4.2 creatinine 0.4 to PHYSICAL EXAM: VITAL SIGNS: Reviewed. GENERAL: Well-developed in no acute distress. ABDOMEN: Soft. Nondistended. NEUROLOGIC: Alert and oriented. Cranial nerves II through XII grossly intact. ASSESSMENT: 1. Abdominal pain 2. Suspected colitis of the transverse colon noted on computed tomography scan 3. History of sleep gastrectomy PLAN: -Patient scheduled for EGD and colonoscopy today with Dr. yousif Physician Local Sales Manager note has been reviewed by physician. Signing provider agrees with the documented findings, assessment, and plan of care. Objective - Vital Signs Vital signs: Vital Signs Temp 98.7 F 11/22/23 07:55 Pulse 57 L 11/22/23 07:55 Resp 16 11/22/23 07:55 BP 103/66 11/22/23 07:55 Pulse Ox 94 L 11/22/23 07:55 FiO2 Intake & Output 11/21/23 11/22/23 11/22/23 18:59 06:59 18:59 Intake Total 0 Balance 0 Intake: Oral 0 Other: Voiding Method Toilet Toilet Toilet # Voids 2 - Labs CBC & Chem 7: 11/22/23 06:34 11/22/23 06:34 Labs: Abnormal Lab Results - Last 24 Hours (Table) 11/22/23 11/22/23 Range/Units 06:34 06:34 RBC 3.27 L (3.80-5.40) m/uL Hgb 7.8 L (11.4-16.0) gm/dL Hct 26.0 L (34.0-46.0) % MCV 79.5 L (80.0-100.0) fL MCH 23.9 L (25.0-35.0) pg MCHC 30.1 L (31.0-37.0) g/dL RDW 19.7 H (11.5-15.5) % BUN <2 L (7-17) mg/dL Creatinine 0.42 L (0.52-1.04) mg/dL
[2023-11-22] MEDS ORDERED: SUMAtriptan succinate 50 MG TAB PO PRN (14:11)
[2023-11-22] MEDS ORDERED: PROMETHAZINE 25 MG TAB PO PRN (14:11)
[2023-11-22] MEDS ORDERED: PROPOFOL 10 MG/ML 20 ML VIAL IV ONE (16:21)
[2023-11-22] MEDS ORDERED: LIDOCAINE 1% INJ 10MG/ML (20 ML MDV) ONE (16:21)
[2023-11-22] MEDS ORDERED: IV FLUID CONTINUATION 1,000 ML IV ONE ×2 (16:24)
--- NOTE | 2023-11-22 16:37 | P.OP ---
Date of Procedure: 11/22/23 Preoperative Diagnosis: abdominal pain Postoperative Diagnosis: mild antral gastritis Procedure(s) Performed: EGD Anesthesia: MAC Surgeon: Dom Sanchez Pathology: other (antrum) Condition: stable Disposition: PACU Description of Procedure: patient's placed on the operative table in the supine position. She received IV sedation. The gastro-/oropharynx passed in the esophagus into the stomach. Scope was placed through the pylorus. The first and second portion of the duodenum appeared normal. Scope summer back the antrum this appeared mildly inflamed. A biopsies performed. Scope was then brought back through the stomach. Patient appears gastric sleeve. The sleeve appeared to be mature and slightly dilated. There is no evidence of any inflammatory changes gastric sleeve. The GE junction was at 40 cm per the distal esophagus appeared normal. The proximal esophagus appeared normal. Scope withdrawn for patient.
[2023-11-22] MEDS: MEMANTINE 10 MG TAB PO SCH (20:30)
[2023-11-22 23:19] LABS: Amphetamine Screen,Urine Not Detected (NotDetected); Barbiturate Screen,Urine Not Detected (NotDetected); Benzodiazepines Screen,Urine Not Detected (NotDetected); Cocaine Screen,Urine Not Detected (NotDetected); Methadone Screen, Urine Not Detected (NotDetected); Opiate Screen,Urine Detected (NotDetected); Oxycodone Screen, Urine Not Detected (NotDetected); Phencyclidine Screen,Urine Not Detected (NotDetected); Tricyclic Antidepressant,Urine Not Detected (NotDetected); Urn Cannabinoid Scrn Not Detected (NotDetected)
[2023-11-23] MEDS: HYDROmorphone 1 MG/ML 1 ML SYRINGE IVP PRN ×7 (00:49→23:50)
[2023-11-23] MEDS: MAG HYDROX/AL HYDROX/SIMETH 30 ML CUP PO SCH ×4 (08:59→20:41)
[2023-11-23] MEDS: FOLIC ACID 1 MG TAB PO SCH (08:59)
[2023-11-23] MEDS: PANTOPRAZOLE 40 MG/10 ML VIAL IV SCH (08:59)
[2023-11-23 11:07] LABS: Blood Urea Nitrogen 5.2 mg/dL (9.0-27.0); Calcium 8.4 mg/dL (8.7-10.3); Carbon Dioxide 25.7 mmol/L (21.6-31.8); Chloride 108 mmol/L (96-109); Glucose 88 mg/dL (70-110); Potassium 4.4 mmol/L (3.5-5.5); Sodium 142 mmol/L (135-145)
[2023-11-23 11:18] LABS: Basophils # (A) 0.04 X 10*3/uL (0.00-0.10); Basophils % (A) 0.8 %; Elliptocytes 2+; Eosinophils # (A) 0.18 X 10*3/uL (0.04-0.35); Eosinophils % (A) 3.5 %; HCT 23.9 % (37.2-46.3); HGB 6.9 g/dL (12.0-15.0); Hypochromasia (M) 2+; Lymphocytes # (A) 1.55 X 10*3/uL (0.90-5.00); Lymphocytes % (A) 30.5 %; MCH 23.1 pg (27.0-32.0); MCHC 28.9 g/dL (32.0-37.0); MCV 79.9 FL (80.0-97.0); Mean Platelet Volume 10.8 FL (9.5-12.2); Monocytes # (A) 0.46 X 10*3/uL (0.20-1.00); Monocytes % (A) 9.1 %; NRBC Per 100 WBC 0 X 10*3/uL (0.00-0.01); Neutrophils # (A) 2.84 X 10*3/uL (1.80-7.70); Neutrophils % (A) 55.9 %; Platelet Count 313 X 10*3/uL (140-440); RBC 2.99 X 10*6/uL (4.10-5.20); RDW 20.1 % (11.5-14.5); WBC 5.08 X 10*3/uL (4.50-10.00)
--- NOTE | 2023-11-23 12:02 | PN ---
PROGRESS NOTE DATE OF SERVICE: 11/22/2023 SUBJECTIVE: This is a 43-year-old woman who was admitted with abdominal pain, nausea, vomiting, scheduled to have scopes today. No chest pain. No palpitations. No fever. OBJECTIVE: VITAL SIGNS: Pulse is 57, blood pressure 106/60, respirations 16. CHEST: Clear to auscultation. CARDIOVASCULAR: S1, S2. ABDOMEN: Soft. Minimal tenderness in the epigastrium. LABORATORY DATA: Hemoglobin 7.8. ASSESSMENT: 1. Abdominal pain, upper with possible anemia, rule out peptic ulcer disease. 2. Nausea and vomiting. 3. Urinary tract infection. 4. History of gastric sleeve surgery. 5. History of Budd-Chiari malformation. 6. Multiple complex medical issues. RECOMMENDATIONS: I recommend to continue current management and continue symptomatic treatment. I recommend follow up closely with scopes. Repeat labs. Otherwise, continue to monitor. Further recommendations to follow. MMODL / IJN: [id number] /
[2023-11-23] MEDS: SODIUM CHLORIDE 0.9% 1,000 ML IV SCH (12:21)
--- NOTE | 2023-11-23 13:04 | P.PN ---
Subjective Progress Note Date: 11/23/23 CHIEF COMPLAINT: Abdominal pain HISTORY OF PRESENT ILLNESS: Patient is status post EGD with results revealing gastritis. Patient had poor bowel prep for the colonoscopy. Colonoscopy not completed. She reports improvement of pain across the upper abdomen. She tolerated regular diet. Hemoglobin 6.9 and she is scheduled to receive 1 unit of blood. PHYSICAL EXAM: VITAL SIGNS: Reviewed. GENERAL: Well-developed in no acute distress. ABDOMEN: Soft. Nondistended. NEUROLOGIC: Alert and oriented. Cranial nerves II through XII grossly intact. ASSESSMENT: 1. Abdominal pain. Status post EGD revealing antral gastritis 2. Suspected colitis of the transverse colon noted on computed tomography scan 3. History of sleeve gastrectomy 4. Anemia PLAN: -Agree with blood transfusion -Patient scheduled for colonoscopy on with Dr. yousif -Start clear liquid diet at dinner -Start bowel prep tomorrow -Continue antibiotics Physician Enamel Finisher note has been reviewed by physician. Signing provider agrees with the documented findings, assessment, and plan of care. Objective - Vital Signs Vital signs: Vital Signs Temp 98.1 F 11/23/23 07:29 Pulse 61 11/23/23 07:29 Resp 16 11/23/23 07:29 BP 112/74 11/23/23 07:29 Pulse Ox 93 L 11/23/23 07:29 FiO2 Intake & Output 11/22/23 11/23/23 11/23/23 18:59 06:59 18:59 Intake Total 100 Output Total 300 Balance 100 -300 Intake: IV 50 Intake, IV Titration 50 Amount cefTRIAXone 1 gm In 50 Sodium Chloride 0.9% 50 ml @ 100 mls/hr IVPB Q24HR [facility] Rx#:[id number] Output: Urine 300 Other: Voiding Method Toilet Toilet - Labs CBC & Chem 7: 11/23/23 05:46 11/23/23 05:46 Labs: Abnormal Lab Results - Last 24 Hours (Table) 11/22/23 11/23/23 11/23/23 Range/Units 21:22 05:46 05:46 RBC 2.99 L (4.10-5.20) X 10*6/uL Hgb 6.9 A* (12.0-15.0) g/dL Hct 23.9 L (37.2-46.3) % MCV 79.9 L (80.0-97.0) FL MCH 23.1 L (27.0-32.0) pg MCHC 28.9 L (32.0-37.0) g/dL RDW 20.1 H (11.5-14.5) % Hypochromasia (manual) 2+ A Elliptocytes 2+ A BUN 5.2 L (9.0-27.0) mg/dL Creatinine 0.5 L (0.6-1.5) mg/dL BUN/Creatinine Ratio 10.40 L (12.00-20.00) Ratio Calcium 8.4 L (8.7-10.3) mg/dL Urine Opiates Screen Detected H (NotDetected)
--- NOTE | 2023-11-23 15:37 | P.PN ---
Subjective Progress Note Date: 11/23/23 43-year-old lady with past medical history significant for gastric sleeve,Budd Chiari malformation, who presented to hospital for worsening abdominal pain and difficulty in swallowing. Patient was seen in the ER a day ago with similar complaints. Patient stated 2 weeks ago she started noticing that she was having a hard time swallowing. Difficulty in swallowing was present for both liquids and solids. Following that she started noticing that she was having epigastric pain which is intermittent, worsened by eating. Patient started noticing nausea and vomiting. There was local lethargy or weakness. There was no complain of fever or chills. Patient denies any chest pain or shortness of breath. Because of these symptoms symptoms, patient was seen in the ER a day ago, CT abdominal and that time showed overall nonobstructive bowel gas pattern, moderate diffuse colonic fecal stasis, suspect uncomplicated focal colitis involving the proximal half of transverse colon. At that time patient also found was UTI and was discharged on antibiotics and stool softeners. Patient stated that she continued to have abdominal pain once he was discharged and was also having nausea and vomiting so she decided to come back to the ER. Initial lab work done in the ER showed WBC 12.5, hemoglobin 9.4, platelet count 419, sodium 137, potassium 4.4, BUN 16, creatinine 0.56 11/20/2023 Patient is seen and evaluated in room at bedside; reports fair pain control with pain medication Vital signs are reviewed and stable with temperature of 98.3, pulse 60 respirations 16 and blood pressure 104/67; O2 saturation 97% Patient has been evaluated by surgery for suspected colitis of transverse colon noted on CT of the abdomen -- Plan for EGD and colonoscopy on Wednesday -- Patient remains on IV Rocephin for untreated UTI 11/21/2023 Patient is seen and evaluated, no specific complaints reported; abdominal pain controlled with pain medications Vital signs are reviewed and are stable with a temperature of 98.2, pulse 73 to respirations 16, blood pressure of 100/66 and O2 saturation 94% on room air Patient remains on IV Dilaudid for pain control; general surgery is following with plans for EGD/colonoscopy tomorrow morning for evaluation of abdominal pain -- Patient remains on ceftriaxone 1 g IV daily for partially treated UTI 11/23/2023 Patient is seen in follow-up this morning continues to report some abdominal pain requiring IV pain medications. Patient is status post EGD as patient initially refused colonoscopy with general surgery showing some inflammation of the antrum and biopsies were obtained and pending. Follow-up labs revealed a he moglobin of 6.9 and will transfuse 1 unit of PRBC. Patient currently maintained on ceftriaxone with concerns of urinary tract infection although we will transition antibiotics Zosyn as patient is now agreeable to stay and have a colonoscopy performed as patient continues to report abdominal pain and not tolerating much oral intake. Patient will start GoLYTELY prep tomorrow and will follow-up on repeat labs. Patient encouraged to increase activity as tolerated. Patient is currently afebrile with no reports of chest pain or shortness of breath. Review of systems: Constitutional: No reports of fatigue, fever, or chills Cardiovascular: No reports of chest pain or palpitations Respiratory: No reports of shortness of breath or cough GI: No reports of nausea, vomiting, or diarrhea : No reports of dysuria or retention Neurovascular: No reports of weakness or numbness All medications have been reviewed Physical exam: Gen: This is a 43-year-old female who is awake, alert and oriented 3, well- developed, well-nourished HEENT: Head is atraumatic, normocephalic. Pupils equal, round. Sclerae is anicteric. NECK: Supple. No JVD. No lymphadenopathy. No thyromegaly. LUNGS: Clear to auscultation. No wheezes or rhonchi. No intercostal retractions. HEART: Regular rate and rhythm. No murmur. ABDOMEN: Soft. Tender on palpation. Bowel sounds are present. No masses. EXTREMITIES: No pedal edema. No calf tenderness. NEUROLOGICAL: Patient is awake, alert and oriented x3. Cranial nerves 2 through 12 are grossly intact. 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 Dr. Reynaldo MD I have performed a history and examination and MDM of this patient, discussed the same with the dictator, and agree with the dictator's assessment and plan as written ,documented as a scribe. Based on total visit time, I have performed more than 50% of the visit. Objective - Vital Signs Vital signs: Vital Signs Temp 98.1 F 11/23/23 07:29 Pulse 61 11/23/23 07:29 Resp 16 11/23/23 07:29 BP 112/74 11/23/23 07:29 Pulse Ox 93 L 11/23/23 07:29 FiO2 Intake & Output 11/22/23 11/23/23 11/23/23 18:59 06:59 18:59 Intake Total 100 Output Total 300 Balance 100 -300 Intake: IV 50 Intake, IV Titration 50 Amount cefTRIAXone 1 gm In 50 Sodium Chloride 0.9% 50 ml @ 100 mls/hr IVPB Q24HR [facility] Rx#:[id number] Output: Urine 300 Other: Voiding Method Toilet Toilet - Labs CBC & Chem 7: 11/23/23 05:46 11/23/23 05:46 Labs: Abnormal Lab Results - Last 24 Hours (Table) 11/22/23 11/23/23 11/23/23 Range/Units 21:22 05:46 05:46 RBC 2.99 L (4.10-5.20) X 10*6/uL Hgb 6.9 A* (12.0-15.0) g/dL Hct 23.9 L (37.2-46.3) % MCV 79.9 L (80.0-97.0) FL MCH 23.1 L (27.0-32.0) pg MCHC 28.9 L (32.0-37.0) g/dL RDW 20.1 H (11.5-14.5) % Hypochromasia (manual) 2+ A Elliptocytes 2+ A BUN 5.2 L (9.0-27.0) mg/dL Creatinine 0.5 L (0.6-1.5) mg/dL BUN/Creatinine Ratio 10.40 L (12.00-20.00) Ratio Calcium 8.4 L (8.7-10.3) mg/dL Urine Opiates Screen Detected H (NotDetected)
[2023-11-23 16:17] VITALS: BMI 26.6
[2023-11-23] MEDS: PIPERACILLIN-TAZOBACTAM 3.375 GM in SODIUM CHLORIDE 0.9% 100 ML IVPB SCH ×2 (16:47→23:53)
[2023-11-23] MEDS: ONDANSETRON 4 MG/2 ML VIAL IVP PRN (16:47)
[2023-11-23] MEDS: MEMANTINE 10 MG TAB PO SCH (23:12)
[2023-11-24] MEDS: ONDANSETRON 4 MG/2 ML VIAL IVP PRN ×2 (06:09→20:31)
[2023-11-24] MEDS: HYDROmorphone 1 MG/ML 1 ML SYRINGE IVP PRN ×6 (06:11→23:32)
[2023-11-24 07:13] LABS: Anisocytosis Slight; HCT 27.8 % (34.0-46.0); HGB 8.3 gm/dL (11.4-16.0); Hypochromasia Marked; MCH 24.1 pg (25.0-35.0); MCHC 29.7 g/dL (31.0-37.0); MCV 81.1 fL (80.0-100.0); Mean Platelet Volume 7.9; Microcytosis Slight; Platelet Count 275 k/uL (150-450); Poikilocytosis Slight; RBC 3.43 m/uL (3.80-5.40); WBC 5.6 k/uL (3.8-10.6)
[2023-11-24] MEDS: PIPERACILLIN-TAZOBACTAM 3.375 GM in SODIUM CHLORIDE 0.9% 100 ML IVPB SCH ×3 (08:28→23:34)
[2023-11-24] MEDS: MAG HYDROX/AL HYDROX/SIMETH 30 ML CUP PO SCH ×5 (08:30→21:43)
[2023-11-24] MEDS: PANTOPRAZOLE 40 MG/10 ML VIAL IV SCH (08:31)
[2023-11-24] MEDS: SODIUM CHLORIDE 0.9% 1,000 ML IV SCH (08:36)
[2023-11-24] MEDS: FOLIC ACID 1 MG TAB PO SCH (08:36)
[2023-11-24] MEDS ORDERED: LACTULOSE 20 GM/30 ML CUP PO ONE (08:56)
[2023-11-24] MEDS ORDERED: PEG 3350 (236 GM/BTL) + LYTES 4,000 ML BOTTLE PO ONE (09:00)
--- NOTE | 2023-11-24 11:52 | P.PN ---
Subjective Progress Note Date: 11/24/23 CHIEF COMPLAINT: Abdominal pain HISTORY OF PRESENT ILLNESS: Patient is status post EGD with results revealing gastritis. Patient reports the pain across her upper abdomen is improving. She did get 1 unit of blood for hemoglobin 6.9 yesterday. Hemoglobin has come up to 8.3. Patient still reports no bowel movements. Afebrile. PHYSICAL EXAM: VITAL SIGNS: Reviewed. GENERAL: Well-developed in no acute distress. ABDOMEN: Soft. Nondistended. NEUROLOGIC: Alert and oriented. Cranial nerves II through XII grossly intact. ASSESSMENT: 1. Abdominal pain. Status post EGD revealing antral gastritis 2. Suspected colitis of the transverse colon noted on computed tomography scan 3. History of sleeve gastrectomy 4. Anemia PLAN: -Patient scheduled for colonoscopy tomorrow with Dr. yousif -Continue GoLYTELY bowel prep -Lactulose given -Clear liquid diet today -Nothing by mouth after midnight -Continue antibiotics Physician Specification Consultant note has been reviewed by physician. Signing provider agrees with the documented findings, assessment, and plan of care. Objective - Vital Signs Vital signs: Vital Signs Temp 98.5 F 11/24/23 07:18 Pulse 52 L 11/24/23 07:18 Resp 18 11/24/23 07:18 BP 100/58 11/24/23 07:18 Pulse Ox 96 11/24/23 07:18 FiO2 Intake & Output 11/23/23 11/24/23 11/24/23 18:59 06:59 18:59 Intake Total 310 0 Balance 310 0 Weight 84.368 kg Intake: Oral 0 Blood Product 310 Rc As-1 Unit 310 [id number] Other: Voiding Method Toilet # Voids 1 - Labs CBC & Chem 7: 11/24/23 05:43 11/23/23 05:46 Labs: Abnormal Lab Results - Last 24 Hours (Table) 11/23/23 11/24/23 Range/Units 11:59 05:43 RBC 3.43 L (3.80-5.40) m/uL Hgb 8.3 L (11.4-16.0) gm/dL Hct 27.8 L (34.0-46.0) % MCH 24.1 L (25.0-35.0) pg MCHC 29.7 L (31.0-37.0) g/dL RDW 19.0 H (11.5-15.5) % Crossmatch See Detail
[2023-11-24] MEDS ORDERED: MAGNESIUM CITRATE 296 ML BOTTLE PO ONE ×2 (17:48→21:00)
[2023-11-24] MEDS: MEMANTINE 10 MG TAB PO SCH (20:21)
[2023-11-25] MEDS: HYDROmorphone 1 MG/ML 1 ML SYRINGE IVP PRN ×5 (02:57→16:29)
[2023-11-25] MEDS: SODIUM CHLORIDE 0.9% 1,000 ML IV SCH (02:58)
[2023-11-25] MEDS ORDERED: ONDANSETRON 4 MG/2 ML VIAL IVP PRN (05:42)
--- NOTE | 2023-11-25 05:47 | P.PN ---
Subjective Progress Note Date: 11/24/23 43-year-old lady with past medical history significant for gastric sleeve,Budd Chiari malformation, who presented to hospital for worsening abdominal pain and difficulty in swallowing. Patient was seen in the ER a day ago with similar complaints. Patient stated 2 weeks ago she started noticing that she was having a hard time swallowing. Difficulty in swallowing was present for both liquids and solids. Following that she started noticing that she was having epigastric pain which is intermittent, worsened by eating. Patient started noticing nausea and vomiting. There was local lethargy or weakness. There was no complain of fever or chills. Patient denies any chest pain or shortness of breath. Because of these symptoms symptoms, patient was seen in the ER a day ago, CT abdominal and that time showed overall nonobstructive bowel gas pattern, moderate diffuse colonic fecal stasis, suspect uncomplicated focal colitis involving the proximal half of transverse colon. At that time patient also found was UTI and was discharged on antibiotics and stool softeners. Patient stated that she continued to have abdominal pain once he was discharged and was also having nausea and vomiting so she decided to come back to the ER. Initial lab work done in the ER showed WBC 12.5, hemoglobin 9.4, platelet count 419, sodium 137, potassium 4.4, BUN 16, creatinine 0.56 11/20/2023 Patient is seen and evaluated in room at bedside; reports fair pain control with pain medication Vital signs are reviewed and stable with temperature of 98.3, pulse 60 respirations 16 and blood pressure 104/67; O2 saturation 97% Patient has been evaluated by surgery for suspected colitis of transverse colon noted on CT of the abdomen -- Plan for EGD and colonoscopy on Wednesday -- Patient remains on IV Rocephin for untreated UTI 11/21/2023 Patient is seen and evaluated, no specific complaints reported; abdominal pain controlled with pain medications Vital signs are reviewed and are stable with a temperature of 98.2, pulse 73 to respirations 16, blood pressure of 100/66 and O2 saturation 94% on room air Patient remains on IV Dilaudid for pain control; general surgery is following with plans for EGD/colonoscopy tomorrow morning for evaluation of abdominal pain -- Patient remains on ceftriaxone 1 g IV daily for partially treated UTI 11/23/2023 Patient is seen in follow-up this morning continues to report some abdominal pain requiring IV pain medications. Patient is status post EGD as patient initially refused colonoscopy with general surgery showing some inflammation of the antrum and biopsies were obtained and pending. Follow-up labs revealed a he moglobin of 6.9 and will transfuse 1 unit of PRBC. Patient currently maintained on ceftriaxone with concerns of urinary tract infection although we will transition antibiotics Zosyn as patient is now agreeable to stay and have a colonoscopy performed as patient continues to report abdominal pain and not tolerating much oral intake. Patient will start GoLYTELY prep tomorrow and will follow-up on repeat labs. Patient encouraged to increase activity as tolerated. Patient is currently afebrile with no reports of chest pain or shortness of breath. 11/24/2023 Patient is seen this morning with general surgery following and has been started on GoLYTELY prep and patient continues to report abdominal pain and nausea and having difficulty tolerating oral intake. Plan is for colonoscopy on with general surgery. Hemoglobin is stable status post transfusion at 8.5 and will follow-up with repeat labs. Patient has been encouraged to increase activity as tolerated and get up out of the bed more often she has been laying in bed this entire hospitalization. Patient is afebrile with no reported chest pain or shortness of breath. Patient not eating much maintained on clear liquids reported nausea not currently vomiting. Review of systems: Constitutional: No reports of fatigue, fever, or chills Cardiovascular: No reports of chest pain or palpitations Respiratory: No reports of shortness of breath or cough GI: reports of nausea, no vomiting, or diarrhea : No reports of dysuria or retention Neurovascular: No reports of weakness or numbness All medications have been reviewed Physical exam: Gen: This is a 43-year-old female who is awake, alert and oriented 3, well-developed, well-nourished HEENT: Head is atraumatic, normocephalic. Pupils equal, round. Sclerae is anict agatha. NECK: Supple. No JVD. No lymphadenopathy. No thyromegaly. LUNGS: Clear to auscultation. No wheezes or rhonchi. No intercostal retractions. HEART: Regular rate and rhythm. No murmur. ABDOMEN: Soft. Tender on palpation. Bowel sounds are present. No masses. EXTREMITIES: No pedal edema. No calf tenderness. NEUROLOGICAL: Patient is awake, alert and oriented x3. Cranial nerves 2 through 12 are grossly intact. 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 Patient having difficulties with continued nausea. Per nursing staff has been refusing some medications and unsure if she will be prepped fully for the colonoscopy. Follow-up on repeat labs and monitor hemoglobin. Transfuse of 7 or less Encouraged increase activity as tolerated Continue clear liquids for now and patient will be nothing by mouth at midnight Will await the colonoscopy report and discuss further with surgery about discharge planning Possible discharge in the next 24-48 hours The impression and plan of care has been dictated by Dulce Maria Rouse, Nurse Practitioner as directed. Dr. Reynaldo MD I have performed a history and examination and MDM of this patient, discussed the same with the dictator, and agree with the dictator's assessment and plan as written ,documented as a scribe. Based on total visit time, I have performed more than 50% of the visit. Objective - Vital Signs Vital signs: Vital Signs Temp 98.2 F 11/25/23 02:00 Pulse 72 11/25/23 02:00 Resp 16 11/25/23 02:00 BP 128/85 11/25/23 02:00 Pulse Ox 98 11/25/23 02:00 FiO2 Intake & Output 11/24/23 11/24/23 11/25/23 06:59 18:59 06:59 Intake Total 0 Balance 0 Intake: Oral 0 Other: Voiding Method Toilet Toilet Toilet # Voids 1 2 - Labs CBC & Chem 7: 11/24/23 05:43 11/23/23 05:46 Labs: Abnormal Lab Results - Last 24 Hours (Table) 11/24/23 Range/Units 05:43 RBC 3.43 L (3.80-5.40) m/uL Hgb 8.3 L (11.4-16.0) gm/dL Hct 27.8 L (34.0-46.0) % MCH 24.1 L (25.0-35.0) pg MCHC 29.7 L (31.0-37.0) g/dL RDW 19.0 H (11.5-15.5) %
[2023-11-25 06:10] LABS: Anisocytosis Slight; HCT 30.9 % (34.0-46.0); HGB 9.2 gm/dL (11.4-16.0); Hypochromasia Marked; MCH 24.3 pg (25.0-35.0); MCHC 29.9 g/dL (31.0-37.0); MCV 81.2 fL (80.0-100.0); Mean Platelet Volume 8.6; Microcytosis Slight; Platelet Count 298 k/uL (150-450); Poikilocytosis Slight; RDW 18.8 % (11.5-15.5); WBC 6.1 k/uL (3.8-10.6)
[2023-11-25 06:20] LABS: African American GFR (CKD) >90 (>60 ml/min/1.73 sqM); Anion Gap 9 mmol/L; Blood Urea Nitrogen 4 mg/dL (7-17); Calcium 8.4 mg/dL (8.4-10.2); Carbon Dioxide 26 mmol/L (22-30); Chloride 105 mmol/L (98-107); Glucose 98 mg/dL (74-99); Non-African American GFR(CKD) >90 (>60 ml/min/1.73 sqM); Potassium 3.9 mmol/L (3.5-5.1); Sodium 140 mmol/L (137-145)
[2023-11-25] MEDS: PANTOPRAZOLE 40 MG/10 ML VIAL IV SCH (08:19)
[2023-11-25] MEDS: FOLIC ACID 1 MG TAB PO SCH (08:19)
[2023-11-25] MEDS: PIPERACILLIN-TAZOBACTAM 3.375 GM in SODIUM CHLORIDE 0.9% 100 ML IVPB SCH ×2 (08:19→15:44)
[2023-11-25] MEDS: MAG HYDROX/AL HYDROX/SIMETH 30 ML CUP PO SCH ×4 (09:22→20:41)
--- NOTE | 2023-11-25 12:56 | P.PN ---
Subjective Progress Note Date: 11/25/23 CHIEF COMPLAINT: Abdominal pain HISTORY OF PRESENT ILLNESS: Patient is status post EGD with results revealing gastritis. Patient did not complete the bowel prep for the colonoscopy. Her bowel movements are not clear. Colonoscopy canceled for today. Afebrile. Hemoglobin improved from 8.3 to 9.2 PHYSICAL EXAM: VITAL SIGNS: Reviewed. GENERAL: Well-developed in no acute distress. ABDOMEN: Soft. Nondistended. NEUROLOGIC: Alert and oriented. Cranial nerves II through XII grossly intact. ASSESSMENT: 1. Abdominal pain. Status post EGD revealing antral gastritis 2. Suspected colitis of the transverse colon noted on computed tomography scan 3. History of sleeve gastrectomy 4. Anemia PLAN: -Patient did not complete the bowel prep for colonoscopy. Colonoscopy had to be cancelled for today. Patient can be discharged from surgical standpoint and have outpatient colonoscopy. -Recommend continuing antibiotics at discharge for possible colitis Physician Border Machine Operator note has been reviewed by physician. Signing provider agrees with the documented findings, assessment, and plan of care. Objective - Vital Signs Vital signs: Vital Signs Temp 98.6 F 11/25/23 07:25 Pulse 58 L 11/25/23 07:25 Resp 18 11/25/23 07:25 BP 103/63 11/25/23 07:25 Pulse Ox 98 11/25/23 07:25 FiO2 Intake & Output 11/24/23 11/25/23 11/25/23 18:59 06:59 18:59 Other: Voiding Method Toilet Toilet Toilet # Voids 2 3 - Labs CBC & Chem 7: 11/25/23 05:44 11/25/23 05:40 Labs: Abnormal Lab Results - Last 24 Hours (Table) 11/25/23 11/25/23 Range/Units 05:40 05:44 Hgb 9.2 L (11.4-16.0) gm/dL Hct 30.9 L (34.0-46.0) % MCH 24.3 L (25.0-35.0) pg MCHC 29.9 L (31.0-37.0) g/dL RDW 18.8 H (11.5-15.5) % BUN 4 L (7-17) mg/dL Creatinine 0.51 L (0.52-1.04) mg/dL
--- NOTE | 2023-11-25 16:39 | P.PN ---
Subjective Progress Note Date: 11/25/23 43-year-old lady with past medical history significant for gastric sleeve,Budd Chiari malformation, who presented to hospital for worsening abdominal pain and difficulty in swallowing. Patient was seen in the ER a day ago with similar complaints. Patient stated 2 weeks ago she started noticing that she was having a hard time swallowing. Difficulty in swallowing was present for both liquids and solids. Following that she started noticing that she was having epigastric pain which is intermittent, worsened by eating. Patient started noticing nausea and vomiting. There was local lethargy or weakness. There was no complain of fever or chills. Patient denies any chest pain or shortness of breath. Because of these symptoms symptoms, patient was seen in the ER a day ago, CT abdominal and that time showed overall nonobstructive bowel gas pattern, moderate diffuse colonic fecal stasis, suspect uncomplicated focal colitis involving the proximal half of transverse colon. At that time patient also found was UTI and was discharged on antibiotics and stool softeners. Patient stated that she continued to have abdominal pain once he was discharged and was also having nausea and vomiting so she decided to come back to the ER. Initial lab work done in the ER showed WBC 12.5, hemoglobin 9.4, platelet count 419, sodium 137, potassium 4.4, BUN 16, creatinine 0.56 11/20/2023 Patient is seen and evaluated in room at bedside; reports fair pain control with pain medication Vital signs are reviewed and stable with temperature of 98.3, pulse 60 respirations 16 and blood pressure 104/67; O2 saturation 97% Patient has been evaluated by surgery for suspected colitis of transverse colon noted on CT of the abdomen -- Plan for EGD and colonoscopy on Wednesday -- Patient remains on IV Rocephin for untreated UTI 11/21/2023 Patient is seen and evaluated, no specific complaints reported; abdominal pain controlled with pain medications Vital signs are reviewed and are stable with a temperature of 98.2, pulse 73 to respirations 16, blood pressure of 100/66 and O2 saturation 94% on room air Patient remains on IV Dilaudid for pain control; general surgery is following with plans for EGD/colonoscopy tomorrow morning for evaluation of abdominal pain -- Patient remains on ceftriaxone 1 g IV daily for partially treated UTI 11/23/2023 Patient is seen in follow-up this morning continues to report some abdominal pain requiring IV pain medications. Patient is status post EGD as patient initially refused colonoscopy with general surgery showing some inflammation of the antrum and biopsies were obtained and pending. Follow-up labs revealed a he moglobin of 6.9 and will transfuse 1 unit of PRBC. Patient currently maintained on ceftriaxone with concerns of urinary tract infection although we will transition antibiotics Zosyn as patient is now agreeable to stay and have a colonoscopy performed as patient continues to report abdominal pain and not tolerating much oral intake. Patient will start GoLYTELY prep tomorrow and will follow-up on repeat labs. Patient encouraged to increase activity as tolerated. Patient is currently afebrile with no reports of chest pain or shortness of breath. 11/24/2023 Patient is seen this morning with general surgery following and has been started on GoLYTELY prep and patient continues to report abdominal pain and nausea and having difficulty tolerating oral intake. Plan is for colonoscopy on with general surgery. Hemoglobin is stable status post transfusion at 8.5 and will follow-up with repeat labs. Patient has been encouraged to increase activity as tolerated and get up out of the bed more often she has been laying in bed this entire hospitalization. Patient is afebrile with no reported chest pain or shortness of breath. Patient not eating much maintained on clear liquids reported nausea not currently vomiting. 11/25/2023 Patient is seen in follow-up today scheduled to undergo a colonoscopy although did not complete the prep and procedure was aborted and general surgery following recommending outpatient follow-up with colonoscopy. Patient report was unable to tolerate the prep due to continued nausea and abdominal pain. Patient is currently afebrile and hemoglobin is 9.2 today and no active bleeding noted. Patient continued on clear liquids and can slowly advance as tolerated. Also encouraged patient along with nursing staff to avoid IV narcotic use if p ossible. Patient denies any chest pain or shortness of breath and will monitor overnight as patient continues to report significant abdominal pain with possible discharge planning in 24 hours. Review of systems: Constitutional: No reports of fatigue, fever, or chills Cardiovascular: No reports of chest pain or palpitations Respiratory: No reports of shortness of breath or cough GI: reports of nausea, no vomiting, or diarrhea : No reports of dysuria or retention Neurovascular: No reports of weakness or numbness All medications have been reviewed Physical exam: Gen: This is a 43-year-old female who is awake, alert and oriented 3, well- developed, well-nourished HEENT: Head is atraumatic, normocephalic. Pupils equal, round. Sclerae is anicteric. NECK: Supple. No JVD. No lymphadenopathy. No thyromegaly. LUNGS: Clear to auscultation. No wheezes or rhonchi. No intercostal retractio ns. HEART: Regular rate and rhythm. No murmur. ABDOMEN: Soft. Tender on palpation. Bowel sounds are present. No masses. EXTREMITIES: No pedal edema. No calf tenderness. NEUROLOGICAL: Patient is awake, alert and oriented x3. Cranial nerves 2 through 12 are grossly intact. 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 General surgery following recommending outpatient colonoscopy Patient Continues to report nausea. Patient also reporting continued abdominal pain Will monitor overnight and decrease the amount of IV Dilaudid. Discussed with patient along with nursing staff about avoiding if possible hemoglobin Is 9.2 today status post 1 unit of PRBCs this admission Encouraged increase activity as tolerated patient is currently maintained on clear liquids and encouraged to slowly advance as tolerated and will the next few days. Recommend follow-up with primary care provider and outpatient colonoscopy Possible discharge in 24 hours The impression and plan of care has been dictated by Dulce Maria Rouse, Nurse Practitioner as directed. Dr. Reynaldo MD I have performed a history and examination and MDM of this patient, discussed the same with the dictator, and agree with the dictator's assessment and plan as written ,documented as a scribe. Based on total visit time, I have performed more than 50% of the visit. Objective - Vital Signs Vital signs: Vital Signs Temp 98.6 F 11/25/23 07:25 Pulse 58 L 01/11/24 07:25 Resp 18 11/25/23 07:25 BP 103/63 11/25/23 07:25 Pulse Ox 98 11/25/23 07:25 FiO2 Intake & Output 11/24/23 11/25/23 11/25/23 18:59 06:59 18:59 Other: Voiding Method Toilet Toilet Toilet # Voids 2 3 - Labs CBC & Chem 7: 11/25/23 05:44 11/25/23 05:40 Labs: Abnormal Lab Results - Last 24 Hours (Table) 11/25/23 11/25/23 Range/Units 05:40 05:44 Hgb 9.2 L (11.4-16.0) gm/dL Hct 30.9 L (34.0-46.0) % MCH 24.3 L (25.0-35.0) pg MCHC 29.9 L (31.0-37.0) g/dL RDW 18.8 H (11.5-15.5) % BUN 4 L (7-17) mg/dL Creatinine 0.51 L (0.52-1.04) mg/dL
[2023-11-25] MEDS: MEMANTINE 10 MG TAB PO SCH (19:24)
[2023-11-25] MEDS: HYDROcodone/APAP 10-325MG 1 EACH TAB PO PRN (20:43)
[2023-11-25] MEDS: HYDROmorphone 0.5 MG/0.5 ML SYRINGE IVP PRN (22:46)
[2023-11-26] MEDS: PIPERACILLIN-TAZOBACTAM 3.375 GM in SODIUM CHLORIDE 0.9% 100 ML IVPB SCH ×2 (00:01→08:31)
[2023-11-26] MEDS: SODIUM CHLORIDE 0.9% 1,000 ML IV SCH (00:02)
[2023-11-26] MEDS: HYDROcodone/APAP 10-325MG 1 EACH TAB PO PRN (05:34)
[2023-11-26 08:13] VITALS: BP 105/64; PULSE 47; RESP 18; TEMP 97.7
[2023-11-26] MEDS: MAG HYDROX/AL HYDROX/SIMETH 30 ML CUP PO SCH (08:27)
[2023-11-26] MEDS: PANTOPRAZOLE 40 MG/10 ML VIAL IV SCH (08:27)
[2023-11-26] MEDS: FOLIC ACID 1 MG TAB PO SCH (08:27)
[2023-11-26] MEDS: HYDROmorphone 0.5 MG/0.5 ML SYRINGE IVP PRN (08:31)
--- NOTE | 2023-11-26 10:13 | P.PN ---
Subjective Progress Note Date: 11/26/23 CHIEF COMPLAINT: Abdominal pain HISTORY OF PRESENT ILLNESS: Patient is status post EGD with results revealing gastritis. Patient did not complete the bowel prep for the colonoscopy. Colonoscopy canceled yesterday. Patient is tolerating diet. Afebrile. Hgb 9.2 PHYSICAL EXAM: VITAL SIGNS: Reviewed. GENERAL: Well-developed in no acute distress. ABDOMEN: Soft. Nondistended. NEUROLOGIC: Alert and oriented. Cranial nerves II through XII grossly intact. ASSESSMENT: 1. Abdominal pain. Status post EGD revealing antral gastritis 2. Suspected colitis of the transverse colon noted on computed tomography scan 3. History of sleeve gastrectomy 4. Anemia PLAN: -Patient can be discharged from surgical standpoint and have outpatient colonoscopy. -Recommend continuing antibiotics at discharge for possible colitis Physician Od Grinder Operator note has been reviewed by physician. Signing provider agrees with the documented findings, assessment, and plan of care. Objective - Vital Signs Vital signs: Vital Signs Temp 97.7 F 11/26/23 07:32 Pulse 47 L 11/26/23 07:32 Resp 18 11/26/23 07:32 BP 105/64 11/26/23 07:32 Pulse Ox 96 11/26/23 07:32 FiO2 Intake & Output 11/25/23 11/26/23 11/26/23 18:59 06:59 18:59 Intake Total 600 1100 Balance 600 1100 Intake: Intake, IV Titration 600 700 Amount Piperacillin-Tazobactam 3 200 100 .375 gm In Sodium Chloride 0.9% 100 ml @ 25 mls/hr IVPB Q8HR [facility] Rx# :[id number] Sodium Chloride 0.9% 1, 400 600 000 ml @ 50 mls/hr IV . Q20H [facility] Rx#:[id number] Oral 400 Other: Voiding Method Toilet Toilet # Voids 3 # Bowel Movements 1 - Labs CBC & Chem 7: 11/25/23 05:44 11/25/23 05:40
--- NOTE | 2023-11-29 06:17 | P.DS ---
Providers Date of admission: 11/18/23 13:03 Expected date of discharge: 11/26/23 Attending physician: Inge Schwarz Consults: 11/18/23 14:11 Consult Physician Routine Consulting Provider: Dom Sanchez Consult Reason/Comments: Abdominal pain, history of gastric sleeve Do you want consulting provider notified?: Yes Primary care physician: Melina Martin Hospital Course: Final diagnosis Abdominal pain with nausea and vomiting, possible peptic ulcer disease Suspected colitis of the transverse colon as noted on CT Status post EGD showing inflamed antrum Anemia, hemoglobin 9.2 today status post 1 unit of PRBC this admission Acute urinary tract infection, present on admission History of fibromyalgia History pulmonary embolus History of previous kidney stones with stent placement history of rheumatoid arthritis history of anxiety Former smoker History of gastric sleeve procedure History of Budd Chiari malformation GI prophylaxis DVT prophylaxis Full code Discharge disposition Patient is being discharged in a stable condition with guarded prognosis to home. Patient will follow-up with Dr. Martin in the outpatient setting upon discharge. Patient is to continue with current medications and outpatient follow up with GI and general surgery as scheduled. Total time taken is greater than 35 minutes. Hospital course This is a 43-year-old female who was recently admitted with nausea and vomiting with abdominal pain and being monitored with surgery following. Patient underwent egd showing inflammation of the antrum and biopsies obtained. Patient had a drop in hemoglobin requiring one unit of PRBC and improved above 9. Attempted colonoscopy but unable to fully complete the prep and was cancelled. Patient has been instructed to follow up outpatient for colonoscopy. Patient to follow up with GI outpatient as well. Repeat labs to monitor cbc. Patient has been cleared by consults. Please refer to other consultations notes for further HPI. Currently no reports of chest pain, shortness of breath, or palpitations. Patient is afebrile. No reports of nausea or vomiting and patient is tolerating diet. Encouraged to slowly advance diet as tolerated. Patient will be discharged home today. Physical exam: Gen: This is a 43 year old female who is awake, alert and oriented x3, well developed, well nourished HEENT: Head is atraumatic, normocephalic. Pupils equal, round. Sclerae is anicteric. NECK: Supple. No JVD. No lymphadenopathy. No thyromegaly. LUNGS: Clear to auscultation. No wheezes or rhonchi. No intercostal retract ions. HEART: Regular rate and rhythm. No murmur. ABDOMEN: Soft. Bowel sounds are present. No masses. No tenderness. EXTREMITIES: No pedal edema. No calf tenderness. NEUROLOGICAL: Patient is awake, alert and oriented x3. Cranial nerves 2 through 12 are grossly intact. Please refer to medication reconciliation sheet for a list of medications. The impression and plan of care has been dictated by Dulce Maria Rouse, Nurse Practitioner as directed. Dr. Reynaldo MD I have performed a history and examination and MDM of this patient, discussed the same with the dictator, and agree with the dictator's assessment and plan as written ,documented as a scribe. Based on total visit time, I have performed more than 50% of the visit. Patient Condition at Discharge: Fair Plan - Discharge Summary New Discharge Prescriptions: New Mag Hydrox/Al Hydrox/Simeth [Maalox] 30 ml PO QID PRN #240 ml PRN Reason: Pain Pantoprazole [Protonix] 40 mg PO DAILY #30 tab Amoxic-Pot Clav 875-125Mg [Augmentin 875-125] 1 tab PO Q12HR 5 Days #10 tab HYDROcodone/APAP 5-325MG [Mcdowell 5-325] 1 tab PO Q8H PRN 3 Days #6 tab PRN Reason: Pain Continue Ondansetron Odt [Zofran ODT] 8 mg PO Q8HR PRN PRN Reason: Nausea Naratriptan HCl [Amerge] 2.5 mg PO DAILY PRN PRN Reason: Migraine Headache Memantine [Namenda] 10 mg PO HS Folic Acid 1 mg PO DAILY Promethazine [Phenergan] 25 mg PO HS PRN PRN Reason: Nausea Discharge Medication List Ondansetron Odt [Zofran ODT] 8 mg PO Q8HR PRN 06/10/20 [History] Folic Acid 1 mg PO DAILY 11/18/23 [History] Memantine [Namenda] 10 mg PO HS 11/18/23 [History] Naratriptan HCl [Amerge] 2.5 mg PO DAILY PRN 11/18/23 [History] Promethazine [Phenergan] 25 mg PO HS PRN 11/18/23 [History] Amoxic-Pot Clav 875-125Mg [Augmentin 875-125] 1 tab PO Q12HR 5 Days #10 tab 11/23/23 [Rx] HYDROcodone/APAP 5-325MG [Mcdowell 5-325] 1 tab PO Q8H PRN 3 Days #6 tab 11/23/23 [Rx] Mag Hydrox/Al Hydrox/Simeth [Maalox] 30 ml PO QID PRN #240 ml 11/23/23 [Rx] Pantoprazole [Protonix] 40 mg PO DAILY #30 tab 11/23/23 [Rx] Follow up Appointment(s)/Referral(s): Mildred Whitaker MD [STAFF PHYSICIAN] - 3 Weeks (The office needs more information to make your appointment please call and have insurance cards ready to make follow up appointment.) Melina Martin [Primary Care Provider] - 11/30/23 1:00 pm Dom Sanchez MD [STAFF PHYSICIAN] - 12/02/23 3:15 pm Ambulatory/Diagnostic Orders: Complete Blood Count w/diff [LAB.AMB] Time Frame: 2 Days, Location: None Selected Activity/Diet/Wound Care/Special Instructions: Activity Limited until follow-up Follow-up with primary care provider on discharge Follow-up with general surgery for biopsy results in one week as well as scheduling for colonoscopy outpatient Follow-up GI outpatient Continue taking medications as prescribed Continue with low fiber diet and slowly advance as tolerated Discharge Disposition: HOME SELF-CARE
== END 2023-11-26 13:18 | disposition home or self-care (01) | DRG 392 ==
LOC: EC 06:21 → OBSVTOIN 13:03 → 6NMEDSUR 13:03 → 1SOBS 15:24 → 5NMEDONC 11-19 15:25
PROVIDERS: ADMIT Internal Medicine; ATTEND Internal Medicine
PROC: 0DB78ZX Excision of Stomach, Pylorus, Via Natural or Artificial Opening Endoscopic, Diagnostic (ICD-10-PCS; principal; 2023-11-22 07:30)
PROC: 30233N1 Transfusion of Nonautologous Red Blood Cells into Peripheral Vein, Percutaneous Approach (ICD-10-PCS; 2023-11-23)
DX: K29.60 Other gastritis without bleeding (principal); N39.0 Urinary tract infection, site not specified; K52.9 Noninfective gastroenteritis and colitis, unspecified; F41.9 Anxiety disorder, unspecified; M79.7 Fibromyalgia; E86.0 Dehydration; Z88.8 Allergy status to other drugs, medicaments and biological substances; Z98.84 Bariatric surgery status; M06.9 Rheumatoid arthritis, unspecified; Z86.79 Personal history of other diseases of the circulatory system; Z87.442 Personal history of urinary calculi; K59.89 Other specified functional intestinal disorders; Z98.51 Tubal ligation status; Z90.49 Acquired absence of other specified parts of digestive tract; Z87.891 Personal history of nicotine dependence
CPT/HCPCS: 36415; 43239; 74018; 80048; 80053; 80306; 81025; 82150; 83690; 85025; 85027; 85610; 85730; 86850; 86900; 86901; 86920; 88305; 96361; 96374; 96375; 96376; 99285

== ENCOUNTER → 2023-11-30 | Outpatient (CLI) | payer MEDICARE, OTHER ==
[2023-11-30 18:41] LABS: Basophils # (A) 0.06 X 10*3/uL (0.00-0.10); Basophils % (A) 0.6 %; Eosinophils % (A) 2.1 %; HCT 33.2 % (37.2-46.3); HGB 9.5 g/dL (12.0-15.0); Lymphocytes # (A) 2.16 X 10*3/uL (0.90-5.00); Lymphocytes % (A) 22.6 %; MCH 22.8 pg (27.0-32.0); MCHC 28.6 g/dL (32.0-37.0); MCV 79.6 FL (80.0-97.0); Mean Platelet Volume 11.4 FL (9.5-12.2); Monocytes % (A) 5.2 %; NRBC Per 100 WBC 0 X 10*3/uL (0.00-0.01); Neutrophils # (A) 6.62 X 10*3/uL (1.80-7.70); Neutrophils % (A) 69.2 %; Platelet Count 320 X 10*3/uL (140-440); RBC 4.17 X 10*6/uL (4.10-5.20); RDW 19.1 % (11.5-14.5); WBC 9.57 X 10*3/uL (4.50-10.00)
[2023-11-30 18:48] LABS: % Iron Saturation 3.39 (12.00-45.00)
== END | disposition home or self-care (01) ==
LOC: LABWHC1 13:47
PROVIDERS: ATTEND Student in an Organized Health Care Education/Training Program
DX: D64.9 Anemia, unspecified (principal)
CPT/HCPCS: 36415; 83540; 83550; 85025

== ENCOUNTER 2024-04-12 16:05 | Emergency (ER) | payer MEDICARE, OTHER ==
--- NOTE | 2024-04-12 16:23 | ED ---
Lower Extremity Injury HPI - General Chief Complaint: Extremity Injury, Lower Stated Complaint: Fall-R foot/hip injury Time Seen by Provider: 04/12/24 16:20 Source: patient, RN notes reviewed Mode of arrival: ambulatory Limitations: no limitations - History of Present Illness Initial Comments: This is a 44-year-old female presents emergency department chief complaint of right foot and hip pain after a fall. Patient states that she was at a auto repair shop getting her when she was asked when she was inside the checkout desk where she tripped over a toolbox that was at the ground twisting her right ankle and falling onto her hip. She states that she is able to bear weight with the right foot with pain. Denies hitting her head or loss of consciousness. States that she took to 650 Tylenol and 800 mg of ibuprofen at 1500. No other acute complaints at this time. - Related Data Home Medications Medication Instructions Recorded Confirmed Ondansetron Odt [Zofran ODT] 8 mg PO Q8HR PRN 06/10/20 11/18/23 Folic Acid 1 mg PO DAILY 11/18/23 11/18/23 Memantine [Namenda] 10 mg PO HS 11/18/23 11/18/23 Naratriptan HCl [Amerge] 2.5 mg PO DAILY PRN 11/18/23 11/18/23 Promethazine [Phenergan] 25 mg PO HS PRN 11/18/23 11/18/23 Previous Rx's Medication Instructions Recorded Amoxic-Pot Clav 875-125Mg 1 tab PO Q12HR 5 Days #10 tab 11/23/23 [Augmentin 875-125] HYDROcodone/APAP 5-325MG [[place] 1 tab PO Q8H PRN 3 Days #6 tab 11/23/23 5-325] Mag Hydrox/Al Hydrox/Simeth 30 ml PO QID PRN #240 ml 11/23/23 [Maalox] Pantoprazole [Protonix] 40 mg PO DAILY #30 tab 11/23/23 Allergies Allergy/AdvReac Type Severity Reaction Status Date / Time metoclopramide HCl Allergy Hallucinati Verified 11/18/23 11:51 [From Reglan] ons NSAIDS (Non-Steroidal AdvReac Abdominal Verified 04/12/24 16:17 Anti-Inflamma Pain Review of Systems ROS Statement: Those systems with pertinent positive or pertinent negative responses have been documented in the HPI. ROS Other: All systems not noted in ROS Statement are negative. Past Medical History Past Medical History: Fibromyalgia, Pulmonary Embolus (PE), Renal Disease Additional Past Medical History / Comment(s): kidney stones with stent, chairi malformation, tricuspid regurgitation, left ventricular hypertrophy, RA. 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, brain decompression 09/01/17, gastric sleeve Past Anesthesia/Blood Transfusion Reactions: Postoperative Nausea & Vomiting (PONV) Past Psychological History: Anxiety Smoking Status: Former smoker Past Alcohol Use History: None Reported, Rare Past Drug Use History: Marijuana - Past Family History Father Additional Family Medical History / Comment(s): born with hole in heart, valve replacements, heart attacks, pacemaker General Exam Limitations: no limitations General appearance: alert, in no apparent distress Head exam: Present: atraumatic, normocephalic, normal inspection Eye exam: Present: normal appearance, PERRL, EOMI. Absent: scleral icterus, conjunctival injection, periorbital swelling ENT exam: Present: normal exam, mucous membranes moist Neck exam: Present: normal inspection. Absent: tenderness, meningismus, lymphadenopathy Respiratory exam: Present: normal lung sounds bilaterally. Absent: respiratory distress, wheezes, rales, rhonchi, stridor Cardiovascular Exam: Present: regular rate, normal rhythm, normal heart sounds. Absent: systolic murmur, diastolic murmur, rubs, gallop, clicks GI/Abdominal exam: Present: soft, normal bowel sounds. Absent: distended, tenderness, guarding, rebound, rigid Right Hip exam: Present: normal inspection, tenderness. Absent: swelling, abrasion, laceration Ankle exam: Present: tenderness (lateral malleolus), swelling (mild edema over the lateral malleolus and lateral forefoot). Absent: full ROM (unable to complete active plantarflexion and dorsiflexion) Foot/Toe exam: Present: tenderness Neurovascular tendon exam: Present: no vascular compromise Back exam: Present: normal inspection Neurological exam: Present: alert, oriented X3, CN II-XII intact Psychiatric exam: Present: normal affect, normal mood Skin exam: Present: warm, dry, intact, normal color. Absent: rash Course Vital Signs 04/12/24 04/12/24 16:17 18:35 Temperature 97.4 F L 97.7 F Pulse Rate 68 65 Respiratory 18 18 Rate Blood Pressure 127/84 130/86 O2 Sat by Pulse 100 100 Oximetry Medical Decision Making - Medical Decision Making Was pt. sent in by a medical professional or institution (, PA, VESSEL SLAGMAN, urgent care, hospital, or [facility]...) When possible be specific @ -No Did you speak to anyone other than the patient for history (EMS, parent, family, police, friend...)? What history was obtained from this source @ -No Did you review nursing and triage notes (agree or disagree)? Why? @ -I reviewed and agree with nursing and triage notes Were old charts reviewed (outside hosp., previous admission, EMS record, old EKG, old radiological studies, urgent care reports/EKG's, [facility] records)? Report findings @ -No old charts were reviewed Differential Diagnosis (chest pain, altered mental status, abdominal pain women, abdominal pain men, vaginal bleeding, weakness, fever, dyspnea, syncope, headache, dizziness, GI bleed, back pain, seizure, CVA, palpatations, mental health, musculoskeletal)? @ -Differential Musculoskeletal Muscular strain, contusion, ligament sprain, fracture, arthritis, septic arthritis, bursitis, cellulitis, muscle spasm, nerve compression, DVT, arterial occlusion, herpes zoster, electrolyte abnormality, tumor.... This is not meant to be in all inclusive list EKG interpreted by me (3pts min.). @ -None X-rays interpreted by me (1pt min.). @ -X-ray of the right ankle, foot, and hip no acute abnormality noted CT interpreted by me (1pt min.). @ -None done U/S interpreted by me (1pt. min.). @ -None done What testing was considered but not performed or refused? (CT, X-rays, U/S, labs)? Why? @ -None What meds were considered but not given or refused? Why? @ -None Did you discuss the management of the patient with other professionals (prof essionals i.e. , PA, VESSEL SLAGMAN, lab, RT, psych nurse, rn social services, crude oil driver, teacher, chief supply chain officer, caseworker)? Give summary @ -No Was smoking cessation discussed for >3mins.? @ -No Was critical care preformed (if so, how long)? @ -No Were there social determinants of health that impacted care today? How? (Homelessness, low income, unemployed, alcoholism, drug addiction, transportation, low edu. Level, literacy, decrease access to med. care, [facility], rehab)? @ -No Was there de-escalation of care discussed even if they declined (Discuss DNR or withdrawal of care, Hospice)? DNR status @ -No What co-morbidities impacted this encounter? (DM, HTN, Smoking, COPD, CAD, Cancer, CVA, ARF, Chemo, Hep., AIDS, mental health diagnosis, sleep apnea, morbid obesity)? @ -None Was patient admitted / discharged? Hospital course, mention meds given and route, prescriptions, significant lab abnormalities, going to OR and other pertinent info. @ -44-year-old female chief complaint of fall. On examination patient noted to have tenderness over the right lateral malleolus and right hip. She will be sent for imaging. Patient taking 12/21/1948 of Tylenol and 800 mg of ibuprofen further pain medication was deferred at this time. X-rays negative for acute pathology. Patient was placed in Kenneth wrap over the right ankle and instructed to continue Tylenol, ice, rest, and elevate affected ankle. Initially she was provided with a shot of Toradol before discharge. Stable for discharge. All questions answered at bedside. Strict return parameters coriwn with patient. Case discussed with Dr. De Dios Undiagnosed new problem with uncertain prognosis? @ -No Drug Therapy requiring intensive monitoring for toxicity (Heparin, Nitro, Insulin, Cardizem)? @ -No Were any procedures done? @ -No Diagnosis/symptom? @ -Fall, ankle sprain, right hip pain Acute, or Chronic, or Acute on Chronic? @ -Acute Uncomplicated (without systemic symptoms) or Complicated (systemic symptoms)? @ -Uncomplicated Side effects of treatment? @ -No Exacerbation, Progression, or Severe Exacerbation? @ -No Poses a threat to life or bodily function? How? (Chest pain, [place], [place], pneumonia, PE, COPD, DKA, ARF, appy, cholecystitis, CVA, Diverticulitis, Homicidal, Suicidal, threat to staff... and all critical care pts) @ -No Disposition Clinical Impression: Ankle sprain, Right hip pain Disposition: HOME SELF-CARE Condition: Good Instructions (If sedation given, give patient instructions): Ankle Sprain (ED) Additional Instructions: Return to the emergency department if your symptoms worsen or not improve. Continue to rest, ice, elevate and use compression wrap on the affected ankle. Is patient prescribed a controlled substance at d/c from ED?: No Referrals: Melina Martin [Primary Care Provider] - 1-2 days Time of Disposition: 17:55
[2024-04-12 17:02] VITALS: RESP 18
--- NOTE | 2024-04-12 17:04 | XR ---
EXAMINATION TYPE: XR Hip Complete RT DATE OF EXAM: 04/12/2024 COMPARISON: None HISTORY: Fall, pain TECHNIQUE: 2 view right hip FINDINGS: Femoral head articulates with the acetabulum. Joint space is preserved. No acute fracture o r dislocation is evident. Follow up exams can be performed as clinically indicated. IMPRESSION: 1. No acute osseous abnormality right hip
--- NOTE | 2024-04-12 17:16 | XR ---
EXAMINATION TYPE: XR foot complete RT DATE OF EXAM: 04/12/2024 COMPARISON: None HISTORY: Fall, pain TECHNIQUE: 3 view right foot FINDINGS: No acute fracture or dislocation is evident. Calcaneal heel spurs are present. Joint spaces are preserved. Soft tissues are normal. Follow up exams can be performed 7-10 days from acute trauma for continued pain. IMPRESSION: 1. No acute osseous abnormality right foot. 2. Calcaneal heel spurs
--- NOTE | 2024-04-12 17:32 | XR ---
EXAMINATION TYPE: XR ankle complete RT DATE OF EXAM: 04/12/2024 COMPARISON: None HISTORY: Fall, pain TECHNIQUE: 3 view right ankle FINDINGS: No acute fracture or dislocation is evident. Ankle mortise is intact. Soft tissues are norm al. Note is made of plantar calcaneal heel spurs. Follow up exams can be performed 7-10 days from acute trauma for continued pain IMPRESSION: 1. No acute osseous abnormality right ankle.
[2024-04-12] MEDS: KETOROLAC 15 MG/ML 1 ML VIAL IM STA (18:27)
[2024-04-12 18:37] VITALS: BP 130/86; PULSE 65; TEMP 97.7
== END 2024-04-12 18:37 | disposition home or self-care (01) ==
LOC: EC 16:05
DX: S93.401A Sprain of unspecified ligament of right ankle, initial encounter (principal); M25.551 Pain in right hip; Z88.6 Allergy status to analgesic agent; Z88.8 Allergy status to other drugs, medicaments and biological substances; Z87.891 Personal history of nicotine dependence; W01.0XXA Fall on same level from slipping, tripping and stumbling without subsequent striking against object, initial encounter; X50.1XXA Overexertion from prolonged static or awkward postures, initial encounter
CPT/HCPCS: 73502; 73610; 73630; 99283; 96372; J1885

== ENCOUNTER 2024-06-27 22:44 | Observation (INO) | payer MEDICARE, OTHER ==
[~2024-06-27 22:44] MED LIST: ASPIRIN 81 MG ONE; NITROGLYCERIN OINT 1 INCH/GM PACKET TOPICAL ONE; NITROGLYCERIN SL TABS 0.4 MG TAB SUBLINGUAL ONE; ONDANSETRON 4 MG/2 ML VIAL ONE; PROCHLORPERAZINE INJ 10 MG/2 ML VIAL ONE; SODIUM CHLORIDE 0.9% 1,000 ML BAG ONE; diphenhydrAMINE 50 MG/ML 1 ML VIAL ONE
[2024-06-27] MEDS ORDERED: HYDROmorphone 0.5 MG/0.5 ML SYRINGE ONE (22:50)
[2024-06-28] MEDS ORDERED: HYDROmorphone 1 MG/ML 1 ML SYRINGE ONE ×5 (06:21→22:25)
[2024-06-28] MEDS ORDERED: ONDANSETRON 4 MG/2 ML VIAL ONE (09:34)
[2024-06-28] MEDS ORDERED: FOLIC ACID 1 MG TAB ONE (21:57)
[2024-06-28] MEDS ORDERED: MEMANTINE 10 MG TAB ONE (22:00)
[2024-06-28] MEDS ORDERED: diphenhydrAMINE 25 MG CAP ONE (22:25)
[2024-06-29] MEDS ORDERED: HYDROmorphone 1 MG/ML 1 ML SYRINGE ONE ×3 (02:17→07:56)
[2024-06-29] MEDS ORDERED: PANTOPRAZOLE 40 MG/10 ML VIAL ONE (07:31)
[2024-06-29] MEDS ORDERED: LORazepam 2 MG/ML INJ ONE (16:06)
--- NOTE | 2024-07-21 14:28 | CT ---
Patient Kristin Cantor ID [id number] Order # EXAMINATION TYPE: CT angio thoracic/abd aorta DATE OF EXAM: 06/27/2024 INDICATION: History is that of chest pain. There is a report of a known aneurysm. COMPARISON: No comparison on downtime PACS CT DLP: 1360 mGycm CONTRAST: Performed without Oral Contrast and with IV Contrast, patient injected with 100 mL of Isovue 370. TECHNIQUE: Axial images at 5 mm thick sections. Reconstructed images in the coronal plane. Delayed images through the kidneys. FINDINGS: CT CHEST: Portion of the thyroid visualized is normal. No suspicious lung nodules or focal infiltrates are present. No enlarged mediastinal or hilar adenopathy is evident. The ascending aorta diameter at the level of the main pulmonary artery is 3.5 cm. The main pulmonary artery diameter at the bifurcation is 2.[address] ABDOMEN: Liver: Normal Spleen: Normal Pancreas: Normal Adrenal glands: The adrenal glands are normal. Gallbladder: Normal Kidneys: No masses are evident. No hydronephrosis is present. No cysts are present. Delayed images were obtained through the kidneys, which remain unremarkable. Aorta: Vascular calcification is within the aorta. No aneurysmal dilatation of the aorta within thor ax or abdomen is identified. Vascular: There is a three-vessel arch. No dissection is evident. The ascending thoracic aorta at the main pulmonary arteries 3.5 cm. Main pulmonary artery the bifurcation is 2.0 cm. The descending thor acic aorta tapers normally. Pulmonary arteries appear unremarkable. Superior mesenteric artery and celiac axis are normal. Renal artery origins appear normal. Inferior m esenteric artery appears normal. Aortic bifurcation is unremarkable. Aorta tapers to its visualized c ourse. Common iliac internal and external iliac vessels are patent. Inferior vena cava: Normal. CT PELVIS: Loops of bowel within the abdomen and pelvis are normal. Studies without oral contrast limiting f ollow-up evaluation. Appendix: Normal as visualized. Urinary bladder: Normal. Genitourinary structures: Uterus is unremarkable. Adnexa appear unremarkable. Osseous structures: No suspicious lytic or sclerotic lesions. IMPRESSION: 1. Aorta tapers normally without aneurysmal dilatation. No dissections are evident.
--- NOTE | 2024-07-25 19:27 | XR ---
EXAMINATION TYPE: XR chest 1V portable DATE OF EXAM: 07/25/2024 COMPARISON: None INDICATION: Chest pain TECHNIQUE: Frontal and lateral views of the chest are obtained. FINDINGS: The heart size is normal. The pulmonary vasculature is normal. The lungs are clear. IMPRESSION: 1. No acute pulmonary process.
== END 2024-06-29 13:56 | disposition home or self-care (01) ==
LOC: 6NMEDSUR 22:44
PROVIDERS: ADMIT Hospitalist; ATTEND Hospitalist
DX: R07.89 Other chest pain (principal); I71.20 Thoracic aortic aneurysm, without rupture, unspecified; R51.9 Headache, unspecified; T46.3X5A Adverse effect of coronary vasodilators, initial encounter; I10 Essential (primary) hypertension; M06.9 Rheumatoid arthritis, unspecified; Q07.00 Arnold-Chiari syndrome without spina bifida or hydrocephalus; F12.90 Cannabis use, unspecified, uncomplicated; Z79.631 Long term (current) use of antimetabolite agent; Z79.899 Other long term (current) drug therapy; Z88.8 Allergy status to other drugs, medicaments and biological substances
CPT/HCPCS: 71045; 71275; 74174; 93005; 96361; 96374; 96375; 96376; 99285

== ENCOUNTER 2025-06-15 00:02 | Emergency (ER) | payer MEDICARE, OTHER ==
--- NOTE | 2025-06-15 00:31 | ED ---
General Adult HPI - General Chief complaint: Headache Stated complaint: Kidney Pain, Abnormal Lab Time Seen by Provider: 06/15/25 00:18 Source: patient, RN notes reviewed, old records reviewed Mode of arrival: ambulatory Limitations: no limitations - History of Present Illness Initial comments: 45-year-old female with several complaints. Patient has had chronic headache and history of Arnold-Chiari malformation. Patient is also complaining of flank pain and dark urine. She denies dysuria. Denies measured fever. Denies focal numbness or weakness. Headache is chronic in nature. - Related Data Home Medications Medication Instructions Recorded Confirmed Ondansetron Odt [Zofran ODT] 8 mg PO Q8HR PRN 06/10/20 11/18/23 Folic Acid 1 mg PO DAILY 11/18/23 11/18/23 Memantine [Namenda] 10 mg PO HS 11/18/23 11/18/23 Naratriptan HCl [Amerge] 2.5 mg PO DAILY PRN 11/18/23 11/18/23 Promethazine [Phenergan] 25 mg PO HS PRN 11/18/23 11/18/23 Previous Rx's Medication Instructions Recorded Amoxic-Pot Clav 875-125Mg 1 tab PO Q12HR 5 Days #10 tab 11/23/23 [Augmentin 875-125] HYDROcodone/APAP 5-325MG [[place] 1 tab PO Q8H PRN 3 Days #6 tab 11/23/23 5-325] Mag Hydrox/Al Hydrox/Simeth 30 ml PO QID PRN #240 ml 11/23/23 [Maalox] Pantoprazole [Protonix] 40 mg PO DAILY #30 tab 11/23/23 Allergies Allergy/AdvReac Type Severity Reaction Status Date / Time metoclopramide HCl Allergy Hallucinati Verified 06/15/25 00:11 [From Reglan] ons NSAIDS (Non-Steroidal AdvReac Abdominal Verified 06/15/25 00:11 Anti-Inflamma Pain prochlorperazine AdvReac Hallucinati Verified 06/15/25 00:12 [From Compazine] ons Review of Systems ROS Statement: Those systems with pertinent positive or pertinent negative responses have been documented in the HPI. ROS Other: All systems not noted in ROS Statement are negative. Past Medical History Past Medical History: Fibromyalgia, Pulmonary Embolus (PE), Renal Disease Additional Past Medical History / Comment(s): kidney stones with stent, chairi malformation, tricuspid regurgitation, left ventricular hypertrophy, RA. 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, brain decompression 09/01/17, gastric sleeve Past Anesthesia/Blood Transfusion Reactions: Postoperative Nausea & Vomiting (PONV) Past Psychological History: Anxiety Smoking Status: Former smoker Past Alcohol Use History: None Reported, Rare Past Drug Use History: Marijuana - Past Family History Father Additional Family Medical History / Comment(s): born with hole in heart, valve replacements, heart attacks, pacemaker General Exam Limitations: no limitations General appearance: alert, in no apparent distress Head exam: Present: atraumatic, normocephalic Eye exam: Present: normal appearance, PERRL ENT exam: Present: normal exam Neck exam: Present: normal inspection. Absent: tenderness, meningismus Respiratory exam: Present: normal lung sounds bilaterally. Absent: respiratory distress, wheezes Cardiovascular Exam: Present: regular rate, normal rhythm GI/Abdominal exam: Present: soft. Absent: distended, tenderness Extremities exam: Present: normal inspection Back exam: Present: CVA tenderness (R), CVA tenderness (L) Neurological exam: Present: alert, oriented X3, CN II-XII intact. Absent: motor sensory deficit Skin exam: Present: warm, dry, intact Course Vital Signs 06/15/25 06/15/25 00:12 01:33 Temperature 98.0 F Pulse Rate 61 60 Respiratory 16 18 Rate Blood Pressure 120/76 O2 Sat by Pulse 99 100 Oximetry Medical Decision Making - Medical Decision Making Was pt. sent in by a medical professional or institution (, PA, STUCCO WORKER, urgent care, hospital, or retirement...) When possible be specific @ -No Did you speak to anyone other than the patient for history (EMS, parent, family, police, friend...)? What history was obtained from this source @ -No Did you review nursing and triage notes (agree or disagree)? Why? @ -I reviewed and agree with nursing and triage notes Were old charts reviewed (outside hosp., previous admission, EMS record, old EKG, old radiological studies, urgent care reports/EKG's, retirement records)? Report findings @ -No old charts were reviewed Differential Abdominal Pain Women: Appendicitis, Cholecystitis, diverticulosis, ischemic bowel, pancreatitis, hepatitis, UTI, gastroenteritis, AAA, incarcerated hernia, bowel obstruction, constipation, inflammatory bowel, hepatitis, peptic ulcer disease, splenic infarction, perforated viscus, vulvitis, ovarian torsion, PID, kidney stone, placenta abruption, this is not meant to be an all-inclusive list Differential Headache: Migraine, tension, cluster, carbon monoxide, central venous thrombosis, pension karma temporal arteritis, acute closure glaucoma, intercranial hemorrhage, mastoiditis, sinusitis, head injury, this is not meant to be an all-inclusive list. EKG interpreted by me (3pts min.). @ -As above X-rays interpreted by me (1pt min.). @ -None done CT interpreted by me (1pt min.). @ -None done U/S interpreted by me (1pt. min.). @ -None done What testing was considered but not performed or refused? (CT, X-rays, U/S, labs)? Why? @ -None What meds were considered but not given or refused? Why? @ -None Did you discuss the management of the patient with other professionals (professionals i.e. , PA, STUCCO WORKER, lab, RT, psych nurse, oncology social work, repertoire manager, teacher, campus police officer, case management director)? Give summary @ -No Was smoking cessation discussed for >3mins.? @ -No Was critical care preformed (if so, how long)? @ -No Were there social determinants of health that impacted care today? How? (Homelessness, low income, unemployed, alcoholism, drug addiction, transportation, low edu. Level, literacy, decrease access to med. care, prison, rehab)? @ -No Was there de-escalation of care discussed even if they declined (Discuss DNR or withdrawal of care, Hospice)? DNR status @ -No What co-morbidities impacted this encounter? (DM, HTN, Smoking, COPD, CAD, Cancer, CVA, ARF, Chemo, Hep., AIDS, mental health diagnosis, sleep apnea, morbid obesity)? @ -Arnold-Chiari malformation, fibromyalgia Was patient admitted / discharged? Hospital course, mention meds given and route, prescriptions, significant lab abnormalities, going to OR and other pertinent info. @45-year-old female presenting with headache, reported ketones in her urine and bilateral flank pain. Patient has stable vitals. Afebrile. She has a normal white blood cell count, she does have chronic anemia although her hemoglobin is improved from prior. Normal electrolytes. She has a transaminitis, prior history of cholecystectomy, no right upper quadrant pain. Urinalysis is negative for ketones, 11 white cells present. Patient reevaluated, resting comfortably. Patient will be discharged at this time with strict return parameters and close outpatient follow-up. Undiagnosed new problem with uncertain prognosis? @ -No Drug Therapy requiring intensive monitoring for toxicity (Heparin, Nitro, Insulin, Cardizem)? @ -No Were any procedures done? @ -No Diagnosis/symptom? @ -Chronic headache, flank pain Acute, or Chronic, or Acute on Chronic? @ -Acute on chronic Uncomplicated (without systemic symptoms) or Complicated (systemic symptoms)? @ -Default Side effects of treatment? @ -No Exacerbation, Progression, or Severe Exacerbation? @ -No Poses a threat to life or bodily function? How? (Chest pain, [place], [place], pneumonia, PE, COPD, DKA, ARF, appy, cholecystitis, CVA, Diverticulitis, Homicidal, Suicidal, threat to staff... and all critical care pts) @ -No - Lab Data Result diagrams: 06/15/25 00:40 06/15/25 00:40 Lab Results 06/15/25 06/15/25 06/15/25 Range/Units 00:40 00:40 00:40 WBC 8.40 (4.50-10.00) 10*3/uL RBC 3.90 L (4.10-5.20) 10*6/uL Hgb 11.6 L (12.0-15.0) g/dL Hct 35.0 L (37.2-46.3) % MCV 89.7 (80.0-97.0) fL MCH 29.7 (27.0-32.0) pg MCHC 33.1 (32.0-37.0) g/dL Plt Count 253 (140-440) 10*3/uL MPV 10.4 (9.5-12.2) fL Immature Gran % (Auto) 0.2 % Neutrophils % 66.1 % Lymphocytes % 28.2 % Monocytes % 3.6 % Eosinophils % 1.4 % Basophils % 0.5 % Immature Gran # 0.02 (0.00-0.04) 10*3/uL Neutrophils # 5.55 (1.80-7.70) 10*3/uL Lymphocytes # 2.37 (0.90-5.00) 10*3/uL Monocytes # 0.30 (0.20-1.00) 10*3/uL Eosinophils # 0.12 (0.04-0.35) 10*3/uL Basophils # 0.04 (0.00-0.10) 10*3/uL Sodium 138 (137-145) mmol/L Potassium 3.9 (3.5-5.1) mmol/L Chloride 105 (98-107) mmol/L Carbon Dioxide 26 (22-30) mmol/L Anion Gap 7 mmol/L BUN 15 (7-17) mg/dL Creatinine 0.46 L (0.52-1.04) mg/dL Est GFR (CKD-EPI)AfAm >90 (>60 ml/min/1.73 sqM) Est GFR (CKD-EPI)NonAf >90 (>60 ml/min/1.73 sqM) Glucose 106 H (74-99) mg/dL Calcium 9.0 (8.4-10.2) mg/dL Total Bilirubin 0.8 (0.2-1.3) mg/dL AST 183 H (14-36) U/L ALT 85 H (4-34) U/L Alkaline Phosphatase 60 (38-126) U/L Total Protein 6.4 (6.3-8.2) g/dL Albumin 4.1 (3.5-5.0) g/dL Urine Color Colorless Urine Appearance Cloudy H (Clear) Urine pH 6.0 (5.0-8.0) Ur Specific Labelle 1.014 (1.001-1.035) Urine Protein Negative (Negative) Urine Glucose (UA) Negative (Negative) Urine Ketones Negative (Negative) Urine Blood Moderate H (Negative) Urine Nitrite Negative (Negative) Urine Bilirubin Negative (Negative) Urine Urobilinogen <2.0 (<2.0) mg/dL Ur Leukocyte Esterase Trace H (Negative) Urine RBC 2 (0-5) /hpf Urine WBC 11 H (0-5) /hpf Ur Squamous Epith Cells 4 (0-4) /hpf Urine Bacteria Occasional H (None) /hpf Urine Mucus Occasional H (None) /hpf Disposition Clinical Impression: Headache, Flank pain Disposition: HOME SELF-CARE Condition: Fair Instructions (If sedation given, give patient instructions): Acute Headache (ED), Flank Pain (ED) Is patient prescribed a controlled substance at d/c from ED?: No Referrals: Darryl Barrow [Primary Care Provider] - 1-2 days Time of Disposition: 01:36
[2025-06-15] MEDS: SODIUM CHLORIDE 0.9% 1,000 ML IV ONE (00:51)
[2025-06-15] MEDS: ONDANSETRON 4 MG/2 ML VIAL IVP STA (00:52)
[2025-06-15] MEDS: HYDROmorphone 0.5 MG/0.5 ML SYRINGE IVP STA (00:54)
[2025-06-15 01:04] LABS: Basophils # (A) 0.04 10*3/uL (0.00-0.10); Basophils % (A) 0.5 %; Eosinophils # (A) 0.12 10*3/uL (0.04-0.35); Eosinophils % (A) 1.4 %; HCT 35.0 % (37.2-46.3); HGB 11.6 g/dL (12.0-15.0); Lymphocytes # (A) 2.37 10*3/uL (0.90-5.00); Lymphocytes % (A) 28.2 %; MCH 29.7 pg (27.0-32.0); MCHC 33.1 g/dL (32.0-37.0); MCV 89.7 fL (80.0-97.0); Monocytes # (A) 0.30 10*3/uL (0.20-1.00); Monocytes % (A) 3.6 %; Neutrophils # (A) 5.55 10*3/uL (1.80-7.70); Neutrophils % (A) 66.1 %; Platelet Count 253 10*3/uL (140-440); RBC 3.90 10*6/uL (4.10-5.20); RDW 14.2 % (11.5-14.5); WBC 8.40 10*3/uL (4.50-10.00)
[2025-06-15 01:22] LABS: Bacteria,Urine Occasional /hpf; Bilirubin,Urine Negative (Negative); Blood,Urine Moderate (Negative); Color,Urine Colorless; Glucose,Urine (UA) Negative (Negative); Ketones,Urine Negative (Negative); Leukocyte Esterase,Urine Trace (Negative); Mucus,Urine Occasional /hpf; Nitrite,Urine Negative (Negative); PH, Urine 6.0 (5.0-8.0); Protein,Urine Negative (Negative); RBC,Urine 2 /hpf (0-5); Specific Gravity,Urine 1.014 (1.001-1.035); Squamous Epithelial Cell,Urine 4 /hpf (0-4); Urobilinogen,Urine <2.0 mg/dL (<2.0); WBC,Urine 11 /hpf (0-5)
[2025-06-15 01:25] LABS: ALT 85 U/L (4-34); AST 183 U/L (14-36); African American GFR (CKD) >90 (>60 ml/min/1.73 sqM); Albumin 4.1 g/dL (3.5-5.0); Alkaline Phosphatase 60 U/L (38-126); Anion Gap 7 mmol/L; Blood Urea Nitrogen 15 mg/dL (7-17); Calcium 9.0 mg/dL (8.4-10.2); Carbon Dioxide 26 mmol/L (22-30); Chloride 105 mmol/L (98-107); Glucose 106 mg/dL (74-99); Non-African American GFR(CKD) >90 (>60 ml/min/1.73 sqM); Potassium 3.9 mmol/L (3.5-5.1); Sodium 138 mmol/L (137-145); Total Protein 6.4 g/dL (6.3-8.2)
[2025-06-15 01:48] VITALS: BP 118/82; PULSE 62; RESP 17; TEMP 98.2
== END 2025-06-15 01:48 | disposition home or self-care (01) ==
LOC: EC 00:02
DX: R51.9 Headache, unspecified (principal); R10.9 Unspecified abdominal pain; M79.7 Fibromyalgia; Z87.891 Personal history of nicotine dependence; Z88.6 Allergy status to analgesic agent; Z88.8 Allergy status to other drugs, medicaments and biological substances
CPT/HCPCS: 36415; 80053; 85025; 81001; 87086; 99284; 96374; 96375; 96361; J2405; J1171